=== PATIENT | male | born 1955 | race American Indian/Alaskan Native ===

== ENCOUNTER 2018-03-06 21:32 | Emergency (ER) | payer MEDICARE ==
[2018-03-06 21:46] VITALS: BP 129/82; PULSE 83; RESP 20; TEMP 98; O2SAT 100
--- NOTE | 2018-03-06 22:05 | C.PDOC ---
History Of Present Illness "I JUST WANT TO SLEEP SOMEWHERE" SEEN 03/04 AND 03/06 AT [facility] AND [facility]. PT HOMELESS. 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 NO ACUTE INTOX REMAINDER NEG Chief Complaint (Nursing): Lower Extremity Problem/Injury Past Medical History Vital Signs: Last Vital Signs Temp 98 F 03/06/18 21:39 Pulse 83 03/06/18 21:39 Resp 20 03/06/18 21:39 BP 129/82 03/06/18 21:39 Pulse Ox 100 03/06/18 21:39 - Medical History PMH: HTN, Hypercholesterolemia Family History: States: Unknown Family Hx - Social History Hx Alcohol Use: No Hx Substance Use: No - Immunization History Hx Tetanus Toxoid Vaccination: No ED Course And Treatment O2 Sat by Pulse Oximetry: 100 Disposition Counseled Patient/Family Regarding: Diagnosis, Need For Followup - Disposition Referrals: YOUR,PMD [Other] Disposition: HOME/ ROUTINE Disposition Time: 22:04 Condition: GOOD Forms: [facility] (Panamanian), General Discharge Instructions - Clinical Impression Clinical Impression: Homeless single person, Malingering
== END 2018-03-06 22:15 | disposition home or self-care (01) ==
LOC: C.ER 21:32
DX: Z59.0 Homelessness (principal); Z76.5 Malingerer [conscious simulation]; E78.00 Pure hypercholesterolemia, unspecified; I10 Essential (primary) hypertension

== ENCOUNTER 2018-03-08 15:47 | Inpatient (IN) | payer MEDICARE ==
[2018-03-08] MEDS ORDERED: Sodium Chloride 0.9% 1,000 ML IV STA (16:35)
--- NOTE | 2018-03-08 16:35 | C.PDOC ---
History Of Present Illness 62 years old male is homeless and presents to ED for complaints of right leg pain that began over 12 years ago. Patient states his leg pain worsened because he is homeless and walks around a lot. Patient also reports complaints of feeling lightheaded mainly when he walks in the sun. Denies acute trauma, fever , chills, chest pain, shortness of breath, nausea, or vomiting. Time Seen by Provider: 03/08/18 16:28 Chief Complaint (Nursing): Dizziness/Lightheaded History Per: Patient History/Exam Limitations: no limitations Onset/Duration Of Symptoms: Days Current Symptoms Are (Timing): Still Present Associated Symptoms Preceding Syncopal Episode: No Predromal Symptoms (Sudden Onset) Seizure Or Post-ictal Symptoms: None Fall Associated With With Symptoms: No Recent travel outside of the [place]: No - Symptoms Of CVA Recent Aspirin Use: Unknown Current Coumadin Use?: Unknown Recent Head Trauma: No Past Medical History Reviewed: Historical Data, Nursing Documentation, Vital Signs Vital Signs: Last Vital Signs Temp 97.6 F 03/08/18 16:05 Pulse 88 03/08/18 16:26 Resp 18 03/08/18 16:26 BP 92/60 L 03/08/18 16:26 Pulse Ox 96 03/08/18 16:57 - Medical History PMH: HTN, Hypercholesterolemia Surgical History: No Surg Hx Family History: States: Unknown Family Hx - Social History Hx Alcohol Use: No Hx Substance Use: No - Immunization History Hx Tetanus Toxoid Vaccination: No Review Of Systems Except As Marked, All Systems Reviewed And Found Negative. Constitutional: Negative for: Fever Cardiovascular: Negative for: Chest Pain Physical Exam - Physical Exam Additional Physical Exam Comments: Constitutional: No acute distress. Eating two bins of hospital food. Head: Normocephalic. Atraumatic. Eyes: PERRL. ENT: Moist mucous membranes. Neck: Supple. Cardiovascular: Regular rate. Radial pulse 2+ bilaterally. Chest: No tenderness. Respiratory: Clear to auscultation bilaterally. GI: Soft. Nontender. Nondistended. Back: No CVA tenderness. Musculoskeletal: No tenderness or swelling of extremities. No asymmetrical edema. Skin: No rash. Neurologic: Alert, no focal deficit. ED Course And Treatment - Laboratory Results Result Diagrams: 03/08/18 17:30 03/08/18 17:30 O2 Sat by Pulse Oximetry: 96 (RA) Pulse Ox Interpretation: Normal Medical Decision Making Medical Decision Making: Administered IV fluids. Ordered blood work. Patient with persistently low blood pressure with renal insufficieny, no old labs for comparison. Dr. Sosa accepts patient to his service. Disposition - Disposition Disposition: HOSPITALIZED Disposition Time: 18:20 Condition: FAIR Forms: [facility] (Persian) - Clinical Impression Clinical Impression: Acute renal insufficiency - Scribe Statement The provider has reviewed the documentation as recorded by the Scribe Dl Dolan All medical record entries made by the Scribe were at my direction and personally dictated by me. I have reviewed the chart and agree that the record accurately reflects my personal performance of the history, physical exam, medical decision making, and the department course for this patient. I have also personally directed, reviewed, and agree with the discharge instructions and disposition.
[2018-03-08] MEDS ORDERED: Sodium Chloride 0.9% 1,000 ML ONE ×2 (17:31→21:34)
[2018-03-08 17:34] LABS: BASO % 0.4 % (0.0-2.0); EOS # 0.1 K/uL (0.0-0.7); EOS % 1.4 % (0.0-4.0); HEMOGLOBIN 11.9 g/dL (12.0-18.0); LYMPH # 1.5 K/uL (1.0-4.3); LYMPH % 27.3 % (20.0-40.0); MEAN CELL VOLUME 84.7 fL (80.0-94.0); MEAN CORPUSCULAR HEMOGLOBIN 28.3 pg (27.0-31.0); MEAN CORPUSCULAR HGB CONC 33.4 g/dL (33.0-37.0); MEAN PLATELET VOLUME 7.1 fL (7.2-11.7); MONO # 0.4 K/uL (0.0-0.8); MONO % 7.7 % (0.0-10.0); NEUT # 3.4 K/uL (1.8-7.0); NEUT % 63.2 % (50.0-75.0); RBC 4.2 Mil/uL (4.40-5.90); RED CELL DISTRIBUTION WIDTH 15.5 % (11.5-14.5); WHITE BLOOD COUNT 5.4 K/uL (4.8-10.8)
[2018-03-08 17:46] LABS: ALB/GLOB RATIO 1.3 (1.0-2.1); ALBUMIN 4.1 g/dL (3.5-5.0); CALCIUM 9.7 mg/dl (8.6-10.4)
--- NOTE | 2018-03-08 21:17 | CP.PCM.HP ---
History of Present Illness - History of Present Illness History of Present Illness: 62 year old male homeless patient with PMH of HTN, Hypercholesterolemia presents to the ED with complains of right leg pain that began 12 years back. Patient feels that his leg pain worsened after he became homeless as he has to walk alot daily. Patient also complains of feeling light headedness when he walks in the sun. Patient denies any recent trauma, fever,chills, CP, SOB, nausea or vomiting. Present on Admission - Present on Admission Any Indicators Present on Admission: No Past Patient History - Past Social History Smoking Status: Never Smoked - CARDIAC Hx Hypercholesterolemia: Yes Hx Hypertension: Yes - NEUROLOGICAL Hx Vertigo: Yes - GENITOURINARY/GYNECOLOGICAL Hx Prostate Problems: Yes - PSYCHIATRIC Hx Substance Use: No - SURGICAL HISTORY Hx Surgeries: No - ANESTHESIA Hx Anesthesia: No Meds Allergies/Adverse Reactions: Allergies Allergy/AdvReac Type Severity Reaction Status Date / Time No Known Allergies Allergy Verified 03/08/18 16:07 Results - Vital Signs Recent Vital Signs: Last Vital Signs Temp 97.6 F 03/08/18 16:05 Pulse 80 03/08/18 19:24 Resp 20 03/08/18 19:24 BP 108/63 03/08/18 19:24 Pulse Ox 99 03/08/18 19:24 - Labs Result Diagrams: 03/10/18 14:15 03/10/18 14:15 Labs: Laboratory Results - last 24 hr 03/08/18 03/08/18 17:30 17:30 WBC 5.4 RBC 4.20 L Hgb 11.9 L Hct 35.6 MCV 84.7 MCH 28.3 MCHC 33.4 RDW 15.5 H Plt Count 205 MPV 7.1 L Neut % (Auto) 63.2 Lymph % (Auto) 27.3 [place] % (Auto) 7.7 Eos % (Auto) 1.4 Baso % (Auto) 0.4 Neut # (Auto) 3.4 Lymph # (Auto) 1.5 [place] # (Auto) 0.4 Eos # (Auto) 0.1 Baso # (Auto) 0.0 Sodium 139 Potassium 3.2 L Chloride 101 Carbon Dioxide 23 Anion Gap 17 BUN 34 H Creatinine 2.5 H Est GFR ( Amer) 32 Est GFR (Non-Af Amer) 26 Random Glucose 125 H Calcium 9.7 Total Bilirubin 0.8 AST 38 ALT 57 Alkaline Phosphatase 81 Total Protein 7.4 Albumin 4.1 Globulin 3.3 Albumin/Globulin Ratio 1.3 Assessment & Plan - Assessment and Plan (Free Text) Plan: Meclizine 25 p.o. every 8 aspirin Flomax KCl Renal workup Renal Doppler IV fluid CBC CMP tomorrow morning Lisinopril As ordered
[2018-03-08] MEDS ORDERED: Enoxaparin 40 mg Syringe SC ONE (21:18)
[2018-03-08 21:48] LABS: BASO % 0.4 % (0.0-2.0); EOS # 0.1 K/uL (0.0-0.7); EOS % 2.6 % (0.0-4.0); HEMOGLOBIN 10.9 g/dL (12.0-18.0); LYMPH % 43.1 % (20.0-40.0); MEAN CELL VOLUME 84.1 fL (80.0-94.0); MEAN CORPUSCULAR HEMOGLOBIN 28.8 pg (27.0-31.0); MEAN CORPUSCULAR HGB CONC 34.2 g/dL (33.0-37.0); MONO # 0.5 K/uL (0.0-0.8); MONO % 11.1 % (0.0-10.0); NEUT % 42.8 % (50.0-75.0); RBC 3.79 Mil/uL (4.40-5.90); RED CELL DISTRIBUTION WIDTH 15.8 % (11.5-14.5); WHITE BLOOD COUNT 4.7 K/uL (4.8-10.8)
[2018-03-08] MEDS: Sodium Chloride 0.9% 1,000 ML IV SCH (21:48)
[2018-03-08 21:57] LABS: ALB/GLOB RATIO 1.2 (1.0-2.1); ALBUMIN 3.6 g/dL (3.5-5.0); CALCIUM 8.9 mg/dl (8.6-10.4)
[2018-03-08] MEDS ORDERED: Potassium Chloride 10 mEq ER Tab PO SCH (22:00)
[2018-03-08] MEDS: Potassium Chloride 10 mEq ER Tab PO SCH (23:29)
[2018-03-09] MEDS: Potassium Chloride 10 mEq ER Tab PO SCH (04:09)
[2018-03-09] MEDS: Sodium Chloride 0.9% 1,000 ML IV SCH ×2 (09:05→21:51)
[2018-03-09] MEDS: Pantoprazole 40 mg EC Tab PO SCH (09:06)
[2018-03-09 12:09] LABS: BASO % 0.5 % (0.0-2.0); EOS # 0.2 K/uL (0.0-0.7); EOS % 4.3 % (0.0-4.0); LYMPH # 1.8 K/uL (1.0-4.3); LYMPH % 49.3 % (20.0-40.0); MEAN CELL VOLUME 84.8 fL (80.0-94.0); MEAN CORPUSCULAR HEMOGLOBIN 28.9 pg (27.0-31.0); MEAN CORPUSCULAR HGB CONC 34.1 g/dL (33.0-37.0); MEAN PLATELET VOLUME 7.4 fL (7.2-11.7); MONO # 0.4 K/uL (0.0-0.8); MONO % 12.1 % (0.0-10.0); NEUT # 1.2 K/uL (1.8-7.0); NEUT % 33.8 % (50.0-75.0); RBC 3.81 Mil/uL (4.40-5.90); RED CELL DISTRIBUTION WIDTH 15.7 % (11.5-14.5); WHITE BLOOD COUNT 3.6 K/uL (4.8-10.8)
[2018-03-09 12:38] LABS: ALB/GLOB RATIO 1.2 (1.0-2.1); ALBUMIN 3.5 g/dL (3.5-5.0); CALCIUM 8.8 mg/dl (8.6-10.4)
[2018-03-09] MEDS ORDERED: Potassium Chloride 20 mEq ER Tab PO SCH ×2 (13:45→14:00)
--- NOTE | 2018-03-09 14:14 | CP.PCM.PN ---
Subjective - Date & Time of Evaluation Date of Evaluation: 03/09/18 Time of Evaluation: 12:30 - Subjective Subjective: clinically same Objective - Vital Signs/Intake and Output Vital Signs (last 24 hours): Temp Pulse Resp BP Pulse Ox 97.9 F 81 20 134/82 99 03/09/18 09:08 03/09/18 09:08 03/09/18 09:08 03/09/18 09:08 03/09/18 09:08 Intake and Output: 03/09/18 03/09/18 06:59 18:59 Intake Total 940 Output Total 600 600 Balance 340 -600 - Medications Medications: Current Medications Aspirin (Aspirin Chewable) 81 mg PO DAILY [facility] Last Admin: 03/09/18 09:06 Dose: 81 mg Hydrochlorothiazide (Hydrodiuril) 25 mg PO DAILY [facility] Last Admin: 03/09/18 09:06 Dose: 25 mg Sodium Chloride (Sodium Chloride 0.9%) 1,000 mls @ 100 mls/hr IV .Q10H [facility] Last Admin: 03/09/18 09:05 Dose: 100 mls/hr Lisinopril (Zestril) 20 mg PO DAILY [facility] Last Admin: 03/09/18 09:06 Dose: 20 mg Meclizine HCl (Antivert) 25 mg PO Q8 [facility] Last Admin: 03/09/18 13:59 Dose: Not Given Pantoprazole Sodium (Protonix Ec Tab) 40 mg PO DAILY [facility] Last Admin: 03/09/18 09:06 Dose: 40 mg Pneumococcal Polyvalent Vaccine (Pneumovax 23 Vaccine) 0.5 ml IM .ONCE ONE Stop: 03/11/18 10:01 Rosuvastatin Calcium (Crestor) 5 mg PO HS [facility] Last Admin: 03/08/18 21:57 Dose: 5 mg Tamsulosin HCl (Flomax) 0.4 mg PO DAILY [facility] Last Admin: 03/09/18 09:06 Dose: 0.4 mg - Labs Labs: 03/09/18 11:51 03/09/18 11:51 - Constitutional Appears: Well - Head Exam Head Exam: ATRAUMATIC, NORMAL INSPECTION, NORMOCEPHALIC - Eye Exam Eye Exam: EOMI, Normal appearance, PERRL Pupil Exam: NORMAL ACCOMODATION, PERRL - ENT Exam ENT Exam: Mucous Membranes Moist, Normal Exam - Neck Exam Neck Exam: Full ROM, Normal Inspection. absent: Lymphadenopathy - Respiratory Exam Respiratory Exam: Decreased Breath Sounds - Cardiovascular Exam Cardiovascular Exam: REGULAR RHYTHM, +S1, +S2 - GI/Abdominal Exam GI & Abdominal Exam: Soft, Diminished Bowel Sounds - Rectal Exam Rectal Exam: Deferred Assessment and Plan - Assessment and Plan (Free Text) Plan: patient claims has no pain in the legs we will do Dopplers ordered 24 hour protein ordered Renal sonogram We will speak with the family Long-term plan to be discussed with the patient's Continue aspirin Continue as ordered
[2018-03-10] MEDS: Sodium Chloride 0.9% 1,000 ML IV SCH ×3 (03:30→22:38)
[2018-03-10] MEDS: Cilostazol 100 mg Tab UD PO SCH ×2 (09:09→17:15)
[2018-03-10] MEDS: Pantoprazole 40 mg EC Tab PO SCH (09:10)
[2018-03-10] MEDS ORDERED: Potassium Chloride 20 mEq ER Tab PO ONE ×2 (10:00→16:00)
[2018-03-10 14:25] LABS: BASO % 0.4 % (0.0-2.0); EOS # 0.2 K/uL (0.0-0.7); EOS % 4.6 % (0.0-4.0); HEMOGLOBIN 11.2 g/dL (12.0-18.0); LYMPH # 1.9 K/uL (1.0-4.3); LYMPH % 51.5 % (20.0-40.0); MEAN CELL VOLUME 86.2 fL (80.0-94.0); MEAN CORPUSCULAR HGB CONC 33.6 g/dL (33.0-37.0); MEAN PLATELET VOLUME 7.6 fL (7.2-11.7); MONO # 0.4 K/uL (0.0-0.8); MONO % 11.7 % (0.0-10.0); NEUT # 1.2 K/uL (1.8-7.0); NEUT % 31.8 % (50.0-75.0); NRBC % 0.1 % (0.0-2.0); RBC 3.86 Mil/uL (4.40-5.90); RED CELL DISTRIBUTION WIDTH 15.7 % (11.5-14.5); WHITE BLOOD COUNT 3.7 K/uL (4.8-10.8)
[2018-03-10 14:36] LABS: IRON 49 ug/dL (49-181)
--- NOTE | 2018-03-10 14:40 | US ---
Date of service: 03/10/2018 PROCEDURE: Ultrasound of the Kidneys HISTORY: RUSSELL. please assess for PVR as well COMPARISON: None available. TECHNIQUE: Sonogram of the kidneys. FINDINGS: RIGHT KIDNEY: Measures: 4.5 x 5.6 x 10.9 cm. Normal in size, contour and echogenicity. No stone, solid mass lesion or hydronephrosis visualized. LEFT KIDNEY: Measures: 5.9 x 6.1 x 11 cm. Normal in size, contour and echogenicity. No stone, solid mass lesion or hydronephrosis visualized. OTHER FINDINGS: Urinary bladder assessment: Prevoid volume: Cannot be assessed, the patient voided prior to the examination. Postvoid residual: 25.5 ml Intrinsic, mural, perivesical abnormalities: None Ureteral jets: Not visible. IMPRESSION: Unremarkable upper tracts. Nondiagnostic assessment of the urinary bladder.
[2018-03-10 14:43] LABS: ALB/GLOB RATIO 1.1 (1.0-2.1); ALBUMIN 3.6 g/dL (3.5-5.0); ALT/SGPT 55 U/L (21-72); AST/SGOT 30 U/L (17-59); BLOOD UREA NITROGEN 19 mg/dL (9-20); CALCIUM 9.1 mg/dl (8.6-10.4); GFR NON-AFRICAN AMERICAN 51
[2018-03-10 14:48] LABS: % IRON SATURATION 18 (20-55); TOTAL IRON BINDING CAPACITY 265 ug/dL (250-450)
[2018-03-10 15:10] LABS: HEPATITIS B SURFACE AG Negative (NEGATIVE)
[2018-03-10 15:15] LABS: HEPATITIS B CORE AB NEGATIVE (NEGATIVE)
[2018-03-10 15:18] LABS: HIV 1&2 ANTIBODY NEGATIVE (NEGATIVE)
--- NOTE | 2018-03-10 15:26 | CP.PCM.PN ---
Subjective - Date & Time of Evaluation Date of Evaluation: 03/10/18 Time of Evaluation: 12:00 - Subjective Subjective: clinically same Objective - Vital Signs/Intake and Output Vital Signs (last 24 hours): Temp Pulse Resp BP Pulse Ox 98.4 F 80 20 121/77 99 03/10/18 08:14 03/10/18 09:13 03/10/18 08:14 03/10/18 09:13 03/10/18 08:14 Intake and Output: 03/10/18 03/10/18 06:59 18:59 Intake Total 1040 Output Total 400 400 Balance 640 -400 - Medications Medications: Current Medications Aspirin (Aspirin Chewable) 81 mg PO DAILY [facility] Last Admin: 03/10/18 09:10 Dose: 81 mg Cilostazol (Pletal) 100 mg PO BID [facility] Last Admin: 03/10/18 09:09 Dose: 100 mg Heparin Sodium (Porcine) (Heparin) 5,000 units SC Q12 [facility] Last Admin: 03/10/18 09:11 Dose: 5,000 units Sodium Chloride (Sodium Chloride 0.9%) 1,000 mls @ 100 mls/hr IV .Q10H [facility] Last Admin: 03/10/18 14:55 Dose: Not Given Lisinopril (Zestril) 20 mg PO DAILY [facility] Last Admin: 03/10/18 09:13 Dose: 20 mg Meclizine HCl (Antivert) 25 mg PO Q8 [facility] Last Admin: 03/10/18 14:55 Dose: Not Given Pantoprazole Sodium (Protonix Ec Tab) 40 mg PO DAILY [facility] Last Admin: 03/10/18 09:10 Dose: 40 mg Pneumococcal Polyvalent Vaccine (Pneumovax 23 Vaccine) 0.5 ml IM .ONCE ONE Stop: 03/11/18 10:01 Potassium Chloride (K-Dur 20 Meq Er Tab) 20 meq PO ONCE ONE Stop: 03/10/18 16:01 Rosuvastatin Calcium (Crestor) 5 mg PO HS [facility] Last Admin: 03/09/18 21:50 Dose: 5 mg Tamsulosin HCl (Flomax) 0.4 mg PO DAILY [facility] Last Admin: 03/10/18 09:10 Dose: 0.4 mg - Labs Labs: 03/10/18 14:15 03/10/18 14:15 - Constitutional Appears: Well - Head Exam Head Exam: ATRAUMATIC, NORMAL INSPECTION, NORMOCEPHALIC - Eye Exam Eye Exam: EOMI, Normal appearance, PERRL Pupil Exam: NORMAL ACCOMODATION, PERRL - ENT Exam ENT Exam: Mucous Membranes Moist, Normal Exam - Neck Exam Neck Exam: Full ROM, Normal Inspection. absent: Lymphadenopathy - Respiratory Exam Respiratory Exam: Decreased Breath Sounds - Cardiovascular Exam Cardiovascular Exam: REGULAR RHYTHM, +S1, +S2 - GI/Abdominal Exam GI & Abdominal Exam: Soft, Diminished Bowel Sounds - Rectal Exam Rectal Exam: Deferred
[2018-03-10 15:28] LABS: HEPATITIS C ANTIBODY NEGATIVE (NEGATIVE)
--- NOTE | 2018-03-10 15:28 | CP.PCM.CON ---
History of Present Illness - History of Present Illness History of Present Illness: Nephrology Consultation Note: Assessment: Stable Acute Kidney Injury (N17.9) likely due to pre-renal state, low BP/hypotension Anemia, HTN Hypokalemia Plan No acute need for renal replacement therapy at this time. Hypertension control with meds as ordered. Maintain hemodynamics stable. Avoid hypotension. Patient on acei. hold diuretics for now Monitor Input/Output, daily weights and renal function with basic metabolic panel continue with IVF Check urine analysis, spot protein/creatinine, albumin/creatinine ratio, renal and bladder sonogram Check HIV/Hep B and Hep C serology Anemia work up with TSAT/Ferritin/Vitamin B12/folate, serum protein electrophoresis with immunofixation Check for 25-OH vitamin D, iPTH, phosphorus level. Dose meds/antibiotics for reduced GFR. Avoid fleets enema/magnesium based laxatives. Avoid nephrotoxins/NSAIDs/ iodinated contrast (unless needed emergently) Glycemic control Further work up/management as per primary team Thanks for allowing me to participate in care of your patient. Will follow patient with you. Please call if any Qs. had d/w team Dr Satnam Patton Office: [phone] Chief Complaint; none Reason for consult: Acute Kidney Injury HPI: Pt is a 62 M with hx of hypertension (years) presented with complaints of dizziness and low BP, also with leg pain for last few days. renal consult for RUSSELL. pt not very cooperative and not providing much hx. Denies OTC/herbal meds or NSAIDs No recent iodinated contrast exposure. Noted obvious episodes of low BP. ROS: Cardiovascular: No chest pain. Pulmonary: No shortness of breath Gastrointestinal: denies abdominal pain No nausea. No vomiting. Genitourinary: No pain while urinating. Denies blood in urine. All other negative except as mentioned in HPI however very limited as pt not cooperative Physical Examination: General Appearance: Comfortable, in no acute respiratory distress, limited exam as pt unco-operative . Vitals reviewed and noted as below Head; Atraumatic, normocephalic ENT: no ulcers no thrush. Tongue is midline. Oropharynx: no rash or ulcers. EYES: Pupils are equal Sclera is anicteric. Neck; supple no thyromegaly Lungs: Normal respiratory rate/effort. Breath sounds bilateral equal and clear Heart: Normal rate. s1s2 normal. No rub or gallop. Extremities: no edema. No varicose veins Neurological: Patient is alert, awake and oriented to person, place and time. Strength bilateral appropriate and equal Skin: Warm and dry. Normal turgor. No rash. Palpitation: Normal elasticity for age Abdomen: Abdomen is soft. Bowel sounds +. There is no abdominal tenderness, no guarding/rigidity no organomegaly Psych: lack insight MSK: no joint tenderness or swelling. Digits and nails normal, no deformity : kidney or bladder not palpable Labs/imaging reviewed. Past medical history, past surgical history, family history, social history, allergy reviewed and noted as below Family hx: no hx of CKD. Rest non-contributory Past Patient History - Past Medical History & Family History Past Medical History?: Yes - Past Social History Smoking Status: Never Smoked - CARDIAC Hx Hypercholesterolemia: Yes Hx Hypertension: Yes - NEUROLOGICAL Hx Dementia: Yes Hx Vertigo: Yes - MUSCULOSKELETAL/RHEUMATOLOGICAL Hx Musculoskeletal Disorders: Yes Hx Arthritis: Yes - GENITOURINARY/GYNECOLOGICAL Hx Prostate Problems: Yes - PSYCHIATRIC Hx Substance Use: No - SURGICAL HISTORY Hx Surgeries: No - ANESTHESIA Hx Anesthesia: No Meds Allergies/Adverse Reactions: Allergies Allergy/AdvReac Type Severity Reaction Status Date / Time No Known Allergies Allergy Verified 03/08/18 16:07 - Medications Medications: Current Medications Aspirin (Aspirin Chewable) 81 mg PO DAILY [facility] Last Admin: 03/10/18 09:10 Dose: 81 mg Cilostazol (Pletal) 100 mg PO BID [facility] Last Admin: 03/10/18 09:09 Dose: 100 mg Heparin Sodium (Porcine) (Heparin) 5,000 units SC Q12 [facility] Last Admin: 03/10/18 09:11 Dose: 5,000 units Sodium Chloride (Sodium Chloride 0.9%) 1,000 mls @ 100 mls/hr IV .Q10H [facility] Last Admin: 03/10/18 14:55 Dose: Not Given Lisinopril (Zestril) 20 mg PO DAILY [facility] Last Admin: 03/10/18 09:13 Dose: 20 mg Meclizine HCl (Antivert) 25 mg PO Q8 [facility] Last Admin: 03/10/18 14:55 Dose: Not Given Pantoprazole Sodium (Protonix Ec Tab) 40 mg PO DAILY [facility] Last Admin: 03/10/18 09:10 Dose: 40 mg Pneumococcal Polyvalent Vaccine (Pneumovax 23 Vaccine) 0.5 ml IM .ONCE ONE Stop: 03/11/18 10:01 Potassium Chloride (K-Dur 20 Meq Er Tab) 20 meq PO ONCE ONE Stop: 03/10/18 16:01 Rosuvastatin Calcium (Crestor) 5 mg PO HS [facility] Last Admin: 03/09/18 21:50 Dose: 5 mg Tamsulosin HCl (Flomax) 0.4 mg PO DAILY [facility] Last Admin: 03/10/18 09:10 Dose: 0.4 mg Results - Vital Signs Recent Vital Signs: Last Vital Signs Temp 98.4 F 03/10/18 08:14 Pulse 80 03/10/18 09:13 Resp 20 03/10/18 08:14 BP 121/77 03/10/18 09:13 Pulse Ox 99 03/10/18 08:14 - Labs Result Diagrams: 03/10/18 14:15 03/10/18 14:15 Labs: Laboratory Results - last 24 hr 03/10/18 03/10/18 03/10/18 14:15 14:15 14:15 WBC 3.7 L RBC 3.86 L Hgb 11.2 L Hct 33.3 L MCV 86.2 MCH 29.0 MCHC 33.6 RDW 15.7 H Plt Count 196 MPV 7.6 Neut % (Auto) 31.8 L Lymph % (Auto) 51.5 H [place] % (Auto) 11.7 H Eos % (Auto) 4.6 H Baso % (Auto) 0.4 Neut # (Auto) 1.2 L Lymph # (Auto) 1.9 [place] # (Auto) 0.4 Eos # (Auto) 0.2 Baso # (Auto) 0.0 Sodium 141 Potassium 3.5 L Chloride 105 Carbon Dioxide 26 Anion Gap 14 BUN 19 Creatinine 1.4 Est GFR ( Amer) > 60 Est GFR (Non-Af Amer) 51 Random Glucose 89 Calcium 9.1 Iron 49 TIBC 265 % Saturation 18 L Ferritin Total Bilirubin 0.4 AST 30 ALT 55 Alkaline Phosphatase 87 Total Protein 6.9 Albumin 3.6 Globulin 3.3 Albumin/Globulin Ratio 1.1 Hep Bs Antigen Hep B Core IgM Ab HIV 1&2 Antibody Screen Negative 03/10/18 14:15 WBC RBC Hgb Hct MCV MCH MCHC RDW Plt Count MPV Neut % (Auto) Lymph % (Auto) [place] % (Auto) Eos % (Auto) Baso % (Auto) Neut # (Auto) Lymph # (Auto) [place] # (Auto) Eos # (Auto) Baso # (Auto) Sodium Potassium Chloride Carbon Dioxide Anion Gap BUN Creatinine Est GFR ( Amer) Est GFR (Non-Af Amer) Random Glucose Calcium Iron TIBC % Saturation Ferritin 255.0 Total Bilirubin AST ALT Alkaline Phosphatase Total Protein Albumin Globulin Albumin/Globulin Ratio Hep Bs Antigen Negative Hep B Core IgM Ab Negative HIV 1&2 Antibody Screen
[2018-03-10 15:44] LABS: FOLATE 5.7 ng/mL
[2018-03-11] MEDS: Potassium Chloride 10 mEq ER Tab PO SCH (08:55)
[2018-03-11] MEDS: Multivitamin Vitamin B Complex (Nephro-Vite) Tab PO SCH (08:55)
[2018-03-11] MEDS: Cilostazol 100 mg Tab UD PO SCH ×2 (09:17→17:46)
[2018-03-11] MEDS: Pantoprazole 40 mg EC Tab PO SCH (09:18)
[2018-03-11] MEDS: Sodium Chloride 0.9% 1,000 ML IV SCH (09:30)
[2018-03-11] MEDS ORDERED: Pneumococcal 23-Valent Vaccine IM ONE (10:00)
--- NOTE | 2018-03-11 11:35 | CP.PCM.PN ---
Subjective - Date & Time of Evaluation Date of Evaluation: 03/11/18 Time of Evaluation: 11:34 - Subjective Subjective: Nephrology Consultation Note: Assessment: Stable Acute Kidney Injury (N17.9) likely due to pre-renal state, low BP/hypotension: IMPROVING Anemia, HTN Hypokalemia Plan No acute need for renal replacement therapy at this time. Hypertension control with meds as ordered. Maintain hemodynamics stable. Avoid hypotension. Patient on acei--lowered to 5 mg/day. hold diuretics for now Monitor Input/Output, daily weights and renal function with basic metabolic panel continue with IVF added iron and MVI supplements Check urine analysis, spot protein/creatinine, albumin/creatinine ratio, renal and bladder sonogram Check HIV/Hep B and Hep C serology Anemia work up with TSAT/Ferritin/Vitamin B12/folate, serum protein electrophoresis with immunofixation Check for 25-OH vitamin D, iPTH, phosphorus level. Dose meds/antibiotics for reduced GFR. Avoid fleets enema/magnesium based laxatives. Avoid nephrotoxins/NSAIDs/ iodinated contrast (unless needed emergently) Glycemic control Further work up/management as per primary team pt stable for d/c from renal perspective when planned, f/up renal clinic 1 week Thanks for allowing me to participate in care of your patient. Will follow patient with you. Please call if any Qs. had d/w team Dr Satnam Patton Office: [phone] Chief Complaint; none Reason for consult: Acute Kidney Injury HPI: Pt is a 62 M with hx of hypertension (years) presented with complaints of dizziness and low BP, also with leg pain for last few days. renal consult for RUSSELL. pt not very cooperative and not providing much hx. Denies OTC/herbal meds or NSAIDs No recent iodinated contrast exposure. Noted obvious episodes of low BP. ROS: Cardiovascular: No chest pain. Pulmonary: No shortness of breath Gastrointestinal: denies abdominal pain No nausea. No vomiting. Genitourinary: No pain while urinating. Denies blood in urine. All other negative except as mentioned in HPI however very limited as pt not cooperative Physical Examination: General Appearance: Comfortable, in no acute respiratory distress, limited exam as pt unco-operative . Vitals reviewed and noted as below Head; Atraumatic, normocephalic ENT: no ulcers no thrush. Tongue is midline. Oropharynx: no rash or ulcers. EYES: Pupils are equal Sclera is anicteric. Neck; supple no thyromegaly Lungs: Normal respiratory rate/effort. Breath sounds bilateral equal and clear Heart: Normal rate. s1s2 normal. No rub or gallop. Extremities: no edema. No varicose veins Neurological: Patient is alert, awake and oriented to person, place and time. Strength bilateral appropriate and equal Skin: Warm and dry. Normal turgor. No rash. Palpitation: Normal elasticity for age Abdomen: Abdomen is soft. Bowel sounds +. There is no abdominal tenderness, no guarding/rigidity no organomegaly Psych: lack insight MSK: no joint tenderness or swelling. Digits and nails normal, no deformity : kidney or bladder not palpable Labs/imaging reviewed. Past medical history, past surgical history, family history, social history, allergy reviewed and noted as below Family hx: no hx of CKD. Rest non-contributory Objective - Vital Signs/Intake and Output Vital Signs (last 24 hours): Temp Pulse Resp BP Pulse Ox 98.5 F 80 20 106/66 99 03/11/18 08:00 03/11/18 08:00 03/11/18 08:00 03/11/18 08:00 03/11/18 08:00 Intake and Output: 03/11/18 03/11/18 06:59 18:59 Output Total 200 Balance -200 - Medications Medications: Current Medications Aspirin (Aspirin Chewable) 81 mg PO DAILY [facility] Last Admin: 03/11/18 09:17 Dose: 81 mg Cilostazol (Pletal) 100 mg PO BID [facility] Last Admin: 03/11/18 09:17 Dose: 100 mg Ferrous Gluconate (Fergon) 324 mg PO TID [facility] Last Admin: 03/11/18 09:17 Dose: 324 mg Heparin Sodium (Porcine) (Heparin) 5,000 units SC Q12 [facility] Last Admin: 03/11/18 09:18 Dose: 5,000 units Sodium Chloride (Sodium Chloride 0.9%) 1,000 mls @ 100 mls/hr IV .Q10H [facility] Last Admin: 03/10/18 22:38 Dose: Not Given Lisinopril (Zestril) 5 mg PO DAILY [facility] Meclizine HCl (Antivert) 25 mg PO Q8 [facility] Last Admin: 03/11/18 05:08 Dose: 25 mg Pantoprazole Sodium (Protonix Ec Tab) 40 mg PO DAILY [facility] Last Admin: 03/11/18 09:18 Dose: 40 mg Potassium Chloride (Klor-Con 10) 10 meq PO BRK [facility] Last Admin: 03/11/18 08:55 Dose: 10 meq Rosuvastatin Calcium (Crestor) 5 mg PO HS [facility] Last Admin: 03/10/18 22:37 Dose: Not Given Tamsulosin HCl (Flomax) 0.4 mg PO DAILY [facility] Last Admin: 03/11/18 09:18 Dose: 0.4 mg Vitamin B Complex/Vit C/Folic Acid (Nephro-Renay) 1 tab PO 0800 [facility] Last Admin: 03/11/18 08:55 Dose: 1 tab - Labs Labs: 03/10/18 14:15 03/10/18 14:15
--- NOTE | 2018-03-11 12:53 | PQF ---
PROVIDER RESPONSE TEXT: PRERENAL AZOTEMIA REVIEWER QUERY TEXT: Kidney Failure, Acute - Associated Conditions Acute Kidney Failure is documented in the Medical Record. Please specify the associated condition (i ncluding probable or suspected) Such as: -- Acute Tubular Necrosis -- Cortical Necrosis -- Papillary or Medullary Necrosis -- Traumatic Anuria -- None are likely contributors -- Other, please specify The patient's Clinical Indicators include: ?62 years old male is homeless, complaints of feeling lightheaded mainly when he walks in the sun?. BP 81/53 - 92/60 - 108/63 (mmHg). BUN: 34/33/26 - Crea: 2.5/2.2/1.8 GFR: 32/26-37/30. U/S RENAL/URINARY BLADDER: Unremarkable upper tracts. Nondiagnostic assessment of the urinary bladder. Please consider verify if AKF is due to hypotension and document it specifying it, if agree Query created by: Lito Neri on 03/11/2018 12:01 PM Electronically signed by: Kaur CROSS 03/11/2018 12:49 PM
[2018-03-11 14:13] LABS: CALCIUM 9.3 mg/dl (8.6-10.4)
[2018-03-11 14:34] LABS: URINE 24 HOUR TOTAL PROTEIN 128.3 mg/24hr (42-225)
[2018-03-11] MEDS ORDERED: Potassium Chloride 20 mEq ER Tab PO ONE (16:00)
--- NOTE | 2018-03-11 17:03 | CP.PCM.PN ---
Subjective - Date & Time of Evaluation Date of Evaluation: 03/11/18 Time of Evaluation: 11:15 - Subjective Subjective: clinically same Objective - Vital Signs/Intake and Output Vital Signs (last 24 hours): Temp Pulse Resp BP Pulse Ox 98.4 F 87 20 108/71 99 03/11/18 15:00 03/11/18 15:00 03/11/18 15:00 03/11/18 15:00 03/11/18 15:00 Intake and Output: 03/11/18 03/11/18 06:59 18:59 Intake Total 480 Output Total 200 450 Balance -200 30 - Medications Medications: Current Medications Aspirin (Aspirin Chewable) 81 mg PO DAILY [facility] Last Admin: 03/11/18 09:17 Dose: 81 mg Cilostazol (Pletal) 100 mg PO BID [facility] Last Admin: 03/11/18 09:17 Dose: 100 mg Ferrous Gluconate (Fergon) 324 mg PO TID [facility] Last Admin: 03/11/18 14:10 Dose: 324 mg Heparin Sodium (Porcine) (Heparin) 5,000 units SC Q12 [facility] Last Admin: 03/11/18 09:18 Dose: 5,000 units Sodium Chloride (Sodium Chloride 0.9%) 1,000 mls @ 100 mls/hr IV .Q10H [facility] Last Admin: 03/10/18 22:38 Dose: Not Given Lisinopril (Zestril) 5 mg PO DAILY [facility] Meclizine HCl (Antivert) 25 mg PO Q8 [facility] Last Admin: 03/11/18 13:17 Dose: 25 mg Pantoprazole Sodium (Protonix Ec Tab) 40 mg PO DAILY [facility] Last Admin: 03/11/18 09:18 Dose: 40 mg Potassium Chloride (Klor-Con 10) 10 meq PO BRK [facility] Last Admin: 03/11/18 08:55 Dose: 10 meq Rosuvastatin Calcium (Crestor) 5 mg PO HS [facility] Last Admin: 03/10/18 22:37 Dose: Not Given Tamsulosin HCl (Flomax) 0.4 mg PO DAILY [facility] Last Admin: 03/11/18 09:18 Dose: 0.4 mg Vitamin B Complex/Vit C/Folic Acid (Nephro-Renay) 1 tab PO 0800 [facility] Last Admin: 03/11/18 08:55 Dose: 1 tab - Labs Labs: 03/10/18 14:15 03/11/18 13:51 - Constitutional Appears: Well - Head Exam Head Exam: ATRAUMATIC, NORMAL INSPECTION, NORMOCEPHALIC - Eye Exam Eye Exam: EOMI, Normal appearance, PERRL Pupil Exam: NORMAL ACCOMODATION, PERRL - ENT Exam ENT Exam: Mucous Membranes Moist, Normal Exam - Neck Exam Neck Exam: Full ROM, Normal Inspection. absent: Lymphadenopathy - Respiratory Exam Respiratory Exam: Decreased Breath Sounds - Cardiovascular Exam Cardiovascular Exam: REGULAR RHYTHM, +S1, +S2 - GI/Abdominal Exam GI & Abdominal Exam: Soft, Diminished Bowel Sounds - Rectal Exam Rectal Exam: Deferred
[2018-03-11 23:07] LABS: URINE BACTERIA FEW (<OCC); URINE BILIRUBIN NEGATIVE (NEGATIVE); URINE CLARITY Clear (Clear); URINE COLOR Yellow (YELLOW); URINE GLUCOSE (UA) NORMAL (Normal); URINE LEUKOCYTE ESTERASE NEG Leu/uL (Negative); URINE PROTEIN NEGATIVE (NEGATIVE); URINE UROBILINOGEN NORMAL mg/dL (0.2-1.0)
[2018-03-11 23:11] LABS: URINE BLOOD TRACE (NEGATIVE)
[2018-03-12] MEDS: Sodium Chloride 0.9% 1,000 ML IV SCH (05:01)
[2018-03-12 07:41] LABS: ALBUMIN (PEP) 3.5 g/dL (3.8-4.8); ALPHA-1-GLOBULIN (PEP) 0.3 g/dL (0.2-0.3)
[2018-03-12] MEDS: Potassium Chloride 10 mEq ER Tab PO SCH ×2 (08:44→14:58)
[2018-03-12] MEDS: Multivitamin Vitamin B Complex (Nephro-Vite) Tab PO SCH (08:44)
[2018-03-12] MEDS: Pantoprazole 40 mg EC Tab PO SCH (09:13)
[2018-03-12] MEDS: Cilostazol 100 mg Tab UD PO SCH ×2 (09:13→17:42)
[2018-03-12 14:16] LABS: CALCIUM 9.1 mg/dl (8.6-10.4)
--- NOTE | 2018-03-12 15:14 | CP.PCM.PN ---
Subjective - Date & Time of Evaluation Date of Evaluation: 03/12/18 Time of Evaluation: 09:30 - Subjective Subjective: Nephrology Consultation Note: Assessment: Stable Acute Kidney Injury (N17.9) likely due to pre-renal state, low BP/hypotension: IMPROVING Anemia, HTN Hypokalemia Plan No acute need for renal replacement therapy at this time. Hypertension control with meds as ordered. Maintain hemodynamics stable. Avoid hypotension. Patient on acei--lowered to 5 mg/day. hold diuretics for now Monitor Input/Output, daily weights and renal function with basic metabolic panel can discontinue IVF added iron and MVI supplements Check urine analysis, spot protein/creatinine, albumin/creatinine ratio, renal and bladder sonogram Check HIV/Hep B and Hep C serology Anemia work up with TSAT/Ferritin/Vitamin B12/folate, serum protein electrophoresis with immunofixation Check for 25-OH vitamin D, iPTH, phosphorus level. Dose meds/antibiotics for reduced GFR. Avoid fleets enema/magnesium based laxatives. Avoid nephrotoxins/NSAIDs/ iodinated contrast (unless needed emergently) Glycemic control Further work up/management as per primary team pt stable for d/c from renal perspective when planned, f/up renal clinic 1 week Thanks for allowing me to participate in care of your patient. Will follow patient with you. Please call if any Qs. had d/w team Dr Satnam Patton Office: [phone] Chief Complaint; none Reason for consult: Acute Kidney Injury HPI: Pt is a 62 M with hx of hypertension (years) presented with complaints of dizziness and low BP, also with leg pain for last few days. renal consult for RUSSELL. pt not very cooperative and not providing much hx. Denies OTC/herbal meds or NSAIDs No recent iodinated contrast exposure. Noted obvious episodes of low BP. ROS: Cardiovascular: No chest pain. Pulmonary: No shortness of breath Gastrointestinal: denies abdominal pain No nausea. No vomiting. Genitourinary: No pain while urinating. Denies blood in urine. All other negative except as mentioned in HPI however very limited as pt not cooperative Physical Examination: General Appearance: Comfortable, in no acute respiratory distress, limited exam as pt unco-operative . Vitals reviewed and noted as below pt refused further physical exam. Says "I am all right" Labs/imaging reviewed. Past medical history, past surgical history, family history, social history, allergy reviewed and noted as below Family hx: no hx of CKD. Rest non-contributory Objective - Vital Signs/Intake and Output Vital Signs (last 24 hours): Temp Pulse Resp BP Pulse Ox 97.4 F L 86 20 122/77 99 03/12/18 07:56 03/12/18 09:17 03/12/18 07:56 03/12/18 09:17 03/12/18 07:56 Intake and Output: 03/12/18 03/12/18 06:59 18:59 Output Total 750 Balance -750 - Medications Medications: Current Medications Aspirin (Aspirin Chewable) 81 mg PO DAILY [facility] Last Admin: 03/12/18 09:13 Dose: 81 mg Cilostazol (Pletal) 100 mg PO BID [facility] Last Admin: 03/12/18 09:13 Dose: 100 mg Ferrous Gluconate (Fergon) 324 mg PO TID [facility] Last Admin: 03/12/18 13:48 Dose: 324 mg Heparin Sodium (Porcine) (Heparin) 5,000 units SC Q12 [facility] Last Admin: 03/12/18 09:14 Dose: 5,000 units Lisinopril (Zestril) 5 mg PO DAILY [facility] Last Admin: 03/12/18 09:14 Dose: 5 mg Meclizine HCl (Antivert) 25 mg PO Q8 [facility] Last Admin: 03/12/18 13:48 Dose: Not Given Pantoprazole Sodium (Protonix Ec Tab) 40 mg PO DAILY [facility] Last Admin: 03/12/18 09:13 Dose: 40 mg Potassium Chloride (Klor-Con 10) 10 meq PO BRK [facility] Last Admin: 03/12/18 08:44 Dose: 10 meq Potassium Chloride (Klor-Con 10) 10 meq PO BRK [facility] Last Admin: 03/12/18 14:58 Dose: Not Given Rosuvastatin Calcium (Crestor) 5 mg PO HS [facility] Last Admin: 03/11/18 21:33 Dose: Not Given Tamsulosin HCl (Flomax) 0.4 mg PO DAILY [facility] Last Admin: 03/12/18 09:13 Dose: 0.4 mg Vitamin B Complex/Vit C/Folic Acid (Nephro-Renay) 1 tab PO 0800 [facility] Last Admin: 03/12/18 08:44 Dose: 1 tab - Labs Labs: 03/10/18 14:15 03/12/18 14:02
--- NOTE | 2018-03-12 20:31 | CP.PCM.PN ---
Subjective - Date & Time of Evaluation Date of Evaluation: 03/12/18 Time of Evaluation: 10:15 - Subjective Subjective: clinically same Objective - Vital Signs/Intake and Output Vital Signs (last 24 hours): Temp Pulse Resp BP Pulse Ox 98 F 91 H 20 105/66 98 03/12/18 15:00 03/12/18 15:00 03/12/18 15:00 03/12/18 15:00 03/12/18 15:00 - Medications Medications: Current Medications Aspirin (Aspirin Chewable) 81 mg PO DAILY [facility] Last Admin: 03/12/18 09:13 Dose: 81 mg Cilostazol (Pletal) 100 mg PO BID [facility] Last Admin: 03/12/18 17:42 Dose: 100 mg Ferrous Gluconate (Fergon) 324 mg PO TID [facility] Last Admin: 03/12/18 17:42 Dose: 324 mg Heparin Sodium (Porcine) (Heparin) 5,000 units SC Q12 [facility] Last Admin: 03/12/18 09:14 Dose: 5,000 units Lisinopril (Zestril) 5 mg PO DAILY [facility] Last Admin: 03/12/18 09:14 Dose: 5 mg Meclizine HCl (Antivert) 25 mg PO Q8 [facility] Last Admin: 03/12/18 13:48 Dose: Not Given Pantoprazole Sodium (Protonix Ec Tab) 40 mg PO DAILY [facility] Last Admin: 03/12/18 09:13 Dose: 40 mg Potassium Chloride (Klor-Con 10) 10 meq PO BRK [facility] Last Admin: 03/12/18 08:44 Dose: 10 meq Potassium Chloride (Klor-Con 10) 10 meq PO BRK [facility] Last Admin: 03/12/18 14:58 Dose: Not Given Rosuvastatin Calcium (Crestor) 5 mg PO HS [facility] Last Admin: 03/11/18 21:33 Dose: Not Given Tamsulosin HCl (Flomax) 0.4 mg PO DAILY [facility] Last Admin: 03/12/18 09:13 Dose: 0.4 mg Vitamin B Complex/Vit C/Folic Acid (Nephro-Renay) 1 tab PO 0800 [facility] Last Admin: 03/12/18 08:44 Dose: 1 tab - Labs Labs: 03/10/18 14:15 03/12/18 14:02
[2018-03-13] MEDS: Potassium Chloride 10 mEq ER Tab PO SCH ×2 (08:42→09:13)
[2018-03-13] MEDS: Multivitamin Vitamin B Complex (Nephro-Vite) Tab PO SCH (08:42)
[2018-03-13] MEDS: Pantoprazole 40 mg EC Tab PO SCH (09:11)
[2018-03-13] MEDS: Cilostazol 100 mg Tab UD PO SCH ×2 (09:12→18:22)
--- NOTE | 2018-03-13 11:30 | PCM.PSYCH ---
Initial Psychiatric Evaluation - Initial Psychiatric Evaluation Type of Admission: Voluntary Legal Status: Capacity Chief Complaint (in patient's own words): "I'm fine, who are you!?" History of Present Illness and Precipitating Events: The patient is seen, chart reviewed and case discussed. Consultation was requested because of his mental status. This is a 62-year-old -[place] male, , has 4 children all adults, homeless and he claims he is retired. The patient is a very poor historian as he doesn't know details of his own history and he only states he is here because he was dizzy. He also states he has a doctor and he did bring some medical medications such as aspirin, Zocor, meclizine and lisinopril/hydrochlorothiazide. He denies having a psychiatric condition and he denies feeling depressed, suicidal, homicidal or anxious. However, he is overall demeanor looks like a chronic psychotic patient. Also, his memory is very poor and attention is also low. He couldn't remember basic facts and he failed in immediate and five-minute recall's. His cooperation was low as well. He denies drug and alcohol use and he gets upsets when his questions about this and he screamed "cigarettes killed my friend" Past psych history: None known Medical history: Hypertension, high cholesterol, BPH, dizziness Family psych history: Denied Current Medications: Active Medications Generic Name Dose Route Start Last Admin Trade Name Gwen PRN Reason Stop Dose Admin Aspirin 81 mg 03/09/18 10:00 03/13/18 09:12 Aspirin Chewable PO 81 mg DAILY [facility] Administration Cilostazol 100 mg 03/10/18 10:00 03/13/18 09:12 Pletal PO 100 mg BID [facility] Administration Ferrous Gluconate 324 mg 03/10/18 18:00 03/13/18 09:12 Fergon PO 324 mg TID [facility] Administration Heparin Sodium (Porcine) 5,000 units 03/10/18 10:00 03/13/18 09:13 Heparin SC 5,000 units Q12 [facility] Administration Lisinopril 5 mg 03/12/18 10:03/13/18 09:12 Zestril PO 5 mg DAILY [facility] Administration Meclizine HCl 25 mg 03/08/18 22:00 03/13/18 05:05 Antivert PO Not Given Q8 [facility] Pantoprazole Sodium 40 mg 03/09/18 10:00 03/13/18 09:11 Protonix Ec Tab PO 40 mg DAILY [facility] Administration Potassium Chloride 10 meq 03/11/18 08:00 03/13/18 08:42 Klor-Con 10 PO 10 meq BRK [facility] Administration Potassium Chloride 10 meq 03/12/18 13:00 03/13/18 09:13 Klor-Con 10 PO Not Given BRK [facility] Rosuvastatin Calcium 5 mg 03/08/18 22:00 03/12/18 21:08 Crestor PO Not Given HS [facility] Tamsulosin HCl 0.4 mg 03/09/18 10:00 03/13/18 09:12 Flomax PO 0.4 mg DAILY [facility] Administration Vitamin B Complex/Vit C/Folic Acid 1 tab 03/11/18 08:00 03/13/18 08:42 Nephro-Renay PO 1 tab 0800 [facility] Administration Past Psychiatric History - Past Psychiatric History Pertinent Medical Hx (Current Medical&Sleep Prob, Allergies): Allergies Allergy/AdvReac Type Severity Reaction Status Date / Time No Known Allergies Allergy Verified 03/08/18 16:07 Aspirin 81 mg PO DAILY 03/04/18 Lisinopril/Hydrochlorothiazide [Lisinopril-Hctz 20-25 mg Tab] 1 tab PO DAILY 05/11 Meclizine [Meclizine*] 1 tab PO Q8 03/04/18 Simvastatin 20 mg PO DAILY 03/04/18 Tamsulosin [Flomax] 0.4 mg PO DAILY 03/04/18 Review of Systems - Psychiatric Psychiatric: Confusion, Difficulty Concentrating, Irritability, Memory Loss. absent: Hallucinations, Homicidal Ideation, Paranoia, Suicidal Ideation Mental Status Examination - Personal Presentation Personal Presentation: Looks older than stated age - Affect Affect: Blunted - Motor Activity Motor Activity: Psychomotor Agitation (mild) - Reliability in Providing Information Reliability in Providing Information: Poor, due to alteration in thoughts, Poor , due to cognitve impairment - Speech Speech: Disorganized - Mood Mood: Other (irat) - Formal Thought Process Formal Thought Process: No Impairment - Cognitive Functions Orientation: Place Sensorium: Alert Attention/Concentration: Easily distracted Abstract Thinking: [place] Estimate of Intelligence: Below average Judgement: Imparied, as evidence by: Poor judgement Memory: Recent impaired, as evidence by: Inability to recall events of the day, Remote impaired as evidenced by: Inability to recall sig life events - Risk Risk: Diminished functioning DSM 5 DX - DSM 5 DSM 5 Diagnosis: Dementia - of unknown cause r/o chronic psychosis - Recommended/Plan of Treatment Treatment Recommendations and Plan of Treatment: No need for meds at this point and he is refusing Collateral info Trazodone for sleep Support given 33 min
--- NOTE | 2018-03-13 14:38 | CP.PCM.PN ---
Subjective - Date & Time of Evaluation Date of Evaluation: 03/13/18 Time of Evaluation: 14:37 - Subjective Subjective: Nephrology Consultation Note: Assessment: Stable Acute Kidney Injury (N17.9) likely due to pre-renal state, low BP/hypotension: IMPROVING Anemia, HTN Hypokalemia Plan No acute need for renal replacement therapy at this time. Hypertension control with meds as ordered. Maintain hemodynamics stable. Avoid hypotension. Patient on acei--lowered to 5 mg/day. hold diuretics for now added iron and MVI supplements psych eval noted. pt with possible dementia/psychosis Dose meds/antibiotics for reduced GFR. Avoid fleets enema/magnesium based laxatives. Avoid nephrotoxins/NSAIDs/ iodinated contrast (unless needed emergently) Glycemic control Further work up/management as per primary team pt stable for d/c from renal perspective when planned, f/up renal clinic 1 week Thanks for allowing me to participate in care of your patient. Please call if any Qs. had d/w team Dr Satnam Patton Office: [phone] Chief Complaint; none Reason for consult: Acute Kidney Injury HPI: Pt is a 62 M with hx of hypertension (years) presented with complaints of dizziness and low BP, also with leg pain for last few days. renal consult for RUSESLL. pt not very cooperative and not providing much hx. Denies OTC/herbal meds or NSAIDs No recent iodinated contrast exposure. Noted obvious episodes of low BP. ROS: Cardiovascular: No chest pain. Pulmonary: No shortness of breath Gastrointestinal: denies abdominal pain No nausea. No vomiting. Genitourinary: No pain while urinating. Denies blood in urine. All other negative except as mentioned in HPI however very limited as pt not cooperative Physical Examination: General Appearance: Comfortable, in no acute respiratory distress, limited exam as pt unco-operative . Vitals reviewed and noted as below pt refused further physical exam. Says "I am all right" Labs/imaging reviewed. Past medical history, past surgical history, family history, social history, allergy reviewed and noted as below Family hx: no hx of CKD. Rest non-contributory Objective - Vital Signs/Intake and Output Vital Signs (last 24 hours): Temp Pulse Resp BP Pulse Ox 98 F 91 H 20 105/66 98 03/12/18 15:00 03/12/18 15:00 03/12/18 15:00 03/12/18 15:00 03/12/18 15:00 - Medications Medications: Current Medications Aspirin (Aspirin Chewable) 81 mg PO DAILY [facility] Last Admin: 03/13/18 09:12 Dose: 81 mg Cilostazol (Pletal) 100 mg PO BID [facility] Last Admin: 03/13/18 09:12 Dose: 100 mg Ferrous Gluconate (Fergon) 324 mg PO TID [facility] Last Admin: 03/13/18 09:12 Dose: 324 mg Heparin Sodium (Porcine) (Heparin) 5,000 units SC Q12 [facility] Last Admin: 03/13/18 09:13 Dose: 5,000 units Lisinopril (Zestril) 5 mg PO DAILY [facility] Last Admin: 03/13/18 09:12 Dose: 5 mg Meclizine HCl (Antivert) 25 mg PO Q8 [facility] Last Admin: 03/13/18 13:23 Dose: Not Given Pantoprazole Sodium (Protonix Ec Tab) 40 mg PO DAILY [facility] Last Admin: 03/13/18 09:11 Dose: 40 mg Potassium Chloride (Klor-Con 10) 10 meq PO BRK [facility] Last Admin: 03/13/18 08:42 Dose: 10 meq Potassium Chloride (Klor-Con 10) 10 meq PO BRK [facility] Last Admin: 03/13/18 09:13 Dose: Not Given Rosuvastatin Calcium (Crestor) 5 mg PO HS [facility] Last Admin: 03/12/18 21:08 Dose: Not Given Tamsulosin HCl (Flomax) 0.4 mg PO DAILY [facility] Last Admin: 03/13/18 09:12 Dose: 0.4 mg Vitamin B Complex/Vit C/Folic Acid (Nephro-Renay) 1 tab PO 0800 [facility] Last Admin: 03/13/18 08:42 Dose: 1 tab - Labs Labs: 03/10/18 14:15 03/12/18 14:02
--- NOTE | 2018-03-13 16:09 | CP.PCM.PN ---
Subjective - Date & Time of Evaluation Date of Evaluation: 03/13/18 Time of Evaluation: 10:00 - Subjective Subjective: clinically same Objective - Vital Signs/Intake and Output Vital Signs (last 24 hours): Temp Pulse Resp BP Pulse Ox 98 F 91 H 20 105/66 98 03/12/18 15:00 03/12/18 15:00 03/12/18 15:00 03/12/18 15:00 03/12/18 15:00 - Medications Medications: Current Medications Aspirin (Aspirin Chewable) 81 mg PO DAILY [facility] Last Admin: 03/13/18 09:12 Dose: 81 mg Cilostazol (Pletal) 100 mg PO BID [facility] Last Admin: 03/13/18 09:12 Dose: 100 mg Ferrous Gluconate (Fergon) 324 mg PO TID [facility] Last Admin: 03/13/18 13:23 Dose: Not Given Heparin Sodium (Porcine) (Heparin) 5,000 units SC Q12 [facility] Last Admin: 03/13/18 09:13 Dose: 5,000 units Lisinopril (Zestril) 5 mg PO DAILY [facility] Last Admin: 03/13/18 09:12 Dose: 5 mg Meclizine HCl (Antivert) 25 mg PO Q8 [facility] Last Admin: 03/13/18 13:23 Dose: Not Given Pantoprazole Sodium (Protonix Ec Tab) 40 mg PO DAILY [facility] Last Admin: 03/13/18 09:11 Dose: 40 mg Potassium Chloride (Klor-Con 10) 10 meq PO BRK [facility] Last Admin: 03/13/18 08:42 Dose: 10 meq Potassium Chloride (Klor-Con 10) 10 meq PO BRK [facility] Last Admin: 03/13/18 09:13 Dose: Not Given Rosuvastatin Calcium (Crestor) 5 mg PO HS [facility] Last Admin: 03/12/18 21:08 Dose: Not Given Tamsulosin HCl (Flomax) 0.4 mg PO DAILY [facility] Last Admin: 03/13/18 09:12 Dose: 0.4 mg Vitamin B Complex/Vit C/Folic Acid (Nephro-Renay) 1 tab PO 0800 [facility] Last Admin: 03/13/18 08:42 Dose: 1 tab - Labs Labs: 03/10/18 14:15 03/12/18 14:02
[2018-03-14] MEDS: Potassium Chloride 10 mEq ER Tab PO SCH ×2 (07:40→10:04)
[2018-03-14] MEDS: Multivitamin Vitamin B Complex (Nephro-Vite) Tab PO SCH (07:40)
[2018-03-14 08:53] LABS: BASO % 0.3 % (0.0-2.0); EOS # 0.2 K/uL (0.0-0.7); EOS % 5.3 % (0.0-4.0); HEMOGLOBIN 11.9 g/dL (12.0-18.0); LYMPH % 47.4 % (20.0-40.0); MEAN CELL VOLUME 85.4 fL (80.0-94.0); MEAN CORPUSCULAR HEMOGLOBIN 28.7 pg (27.0-31.0); MEAN CORPUSCULAR HGB CONC 33.6 g/dL (33.0-37.0); MEAN PLATELET VOLUME 7.2 fL (7.2-11.7); MONO # 0.4 K/uL (0.0-0.8); MONO % 8.5 % (0.0-10.0); NEUT # 1.6 K/uL (1.8-7.0); NEUT % 38.5 % (50.0-75.0); NRBC % 0.1 % (0.0-2.0); RBC 4.13 Mil/uL (4.40-5.90); RED CELL DISTRIBUTION WIDTH 15.8 % (11.5-14.5); WHITE BLOOD COUNT 4.1 K/uL (4.8-10.8)
[2018-03-14 09:16] LABS: ALB/GLOB RATIO 1.1 (1.0-2.1); ALBUMIN 3.6 g/dL (3.5-5.0); ALT/SGPT 46 U/L (21-72); AST/SGOT 37 U/L (17-59); BLOOD UREA NITROGEN 14 mg/dL (9-20); CALCIUM 9.1 mg/dl (8.6-10.4); GFR NON-AFRICAN AMERICAN 51
[2018-03-14] MEDS: Pantoprazole 40 mg EC Tab PO SCH (09:58)
[2018-03-14] MEDS: Cilostazol 100 mg Tab UD PO SCH ×3 (10:04→17:27)
--- NOTE | 2018-03-14 12:17 | CP.PCM.PN ---
Subjective - Date & Time of Evaluation Date of Evaluation: 03/14/18 Time of Evaluation: 09:15 - Subjective Subjective: clinically same Objective - Vital Signs/Intake and Output Vital Signs (last 24 hours): Temp Pulse Resp BP Pulse Ox 98.0 F 71 20 112/73 100 03/14/18 07:49 03/14/18 07:49 03/14/18 07:49 03/14/18 07:49 03/14/18 07:49 Intake and Output: 03/14/18 03/14/18 06:59 18:59 Intake Total 300 Output Total 240 Balance 60 - Medications Medications: Current Medications Aspirin (Aspirin Chewable) 81 mg PO DAILY [facility] Last Admin: 03/14/18 11:08 Dose: 81 mg Cilostazol (Pletal) 100 mg PO BID [facility] Last Admin: 03/14/18 10:04 Dose: 100 mg Ferrous Gluconate (Fergon) 324 mg PO TID [facility] Last Admin: 03/14/18 09:58 Dose: 324 mg Heparin Sodium (Porcine) (Heparin) 5,000 units SC Q12 [facility] Last Admin: 03/14/18 10:04 Dose: Not Given Lisinopril (Zestril) 5 mg PO DAILY [facility] Last Admin: 03/14/18 09:59 Dose: 5 mg Meclizine HCl (Antivert) 25 mg PO Q8 [facility] Last Admin: 03/14/18 05:04 Dose: Not Given Pantoprazole Sodium (Protonix Ec Tab) 40 mg PO DAILY [facility] Last Admin: 03/14/18 09:58 Dose: 40 mg Potassium Chloride (Klor-Con 10) 10 meq PO BRK [facility] Last Admin: 03/14/18 07:40 Dose: 10 meq Potassium Chloride (Klor-Con 10) 10 meq PO BRK [facility] Last Admin: 03/14/18 10:04 Dose: Not Given Rosuvastatin Calcium (Crestor) 5 mg PO HS [facility] Last Admin: 03/13/18 21:59 Dose: Not Given Tamsulosin HCl (Flomax) 0.4 mg PO DAILY [facility] Last Admin: 03/14/18 09:58 Dose: 0.4 mg Vitamin B Complex/Vit C/Folic Acid (Nephro-Renay) 1 tab PO 0800 [facility] Last Admin: 03/14/18 07:40 Dose: 1 tab - Labs Labs: 03/14/18 08:45 03/14/18 08:45
[2018-03-15 07:31] LABS: BASO % 0.3 % (0.0-2.0); EOS # 0.2 K/uL (0.0-0.7); LYMPH # 2.3 K/uL (1.0-4.3); LYMPH % 48.7 % (20.0-40.0); MEAN CELL VOLUME 84.7 fL (80.0-94.0); MEAN CORPUSCULAR HEMOGLOBIN 29.3 pg (27.0-31.0); MEAN CORPUSCULAR HGB CONC 34.7 g/dL (33.0-37.0); MEAN PLATELET VOLUME 7.6 fL (7.2-11.7); MONO # 0.3 K/uL (0.0-0.8); MONO % 6.6 % (0.0-10.0); NEUT # 1.9 K/uL (1.8-7.0); NEUT % 39.4 % (50.0-75.0); NRBC % 0.1 % (0.0-2.0); RBC 4.07 Mil/uL (4.40-5.90); RED CELL DISTRIBUTION WIDTH 15.8 % (11.5-14.5); WHITE BLOOD COUNT 4.8 K/uL (4.8-10.8)
[2018-03-15 08:13] LABS: ALB/GLOB RATIO 0.9 (1.0-2.1); ALBUMIN 3.4 g/dL (3.5-5.0); ALT/SGPT 44 U/L (21-72); AST/SGOT 28 U/L (17-59); BLOOD UREA NITROGEN 15 mg/dL (9-20); CALCIUM 9.1 mg/dl (8.6-10.4); GFR NON-AFRICAN AMERICAN 51
[2018-03-15] MEDS: Multivitamin Vitamin B Complex (Nephro-Vite) Tab PO SCH (08:25)
[2018-03-15] MEDS: Potassium Chloride 10 mEq ER Tab PO SCH ×2 (08:30→09:59)
[2018-03-15] MEDS: Cilostazol 100 mg Tab UD PO SCH ×2 (09:59→17:50)
[2018-03-15] MEDS: Pantoprazole 40 mg EC Tab PO SCH (09:59)
--- NOTE | 2018-03-15 20:13 | CP.PCM.PN ---
Subjective - Date & Time of Evaluation Date of Evaluation: 03/15/18 Time of Evaluation: 08:30 - Subjective Subjective: clinically same Objective - Vital Signs/Intake and Output Vital Signs (last 24 hours): Temp Pulse Resp BP Pulse Ox 98.2 F 85 20 117/79 100 03/15/18 15:00 03/15/18 15:00 03/15/18 15:00 03/15/18 15:00 03/15/18 15:00 Intake and Output: 03/15/18 03/16/18 18:59 06:59 Intake Total 1040 Output Total 950 Balance 90 - Medications Medications: Current Medications Aspirin (Aspirin Chewable) 81 mg PO DAILY [facility] Last Admin: 03/15/18 09:59 Dose: 81 mg Cilostazol (Pletal) 100 mg PO BID [facility] Last Admin: 03/15/18 17:50 Dose: 100 mg Ferrous Gluconate (Fergon) 324 mg PO TID [facility] Last Admin: 03/15/18 17:49 Dose: 324 mg Heparin Sodium (Porcine) (Heparin) 5,000 units SC Q12 [facility] Last Admin: 03/15/18 10:00 Dose: Not Given Lisinopril (Zestril) 5 mg PO DAILY [facility] Last Admin: 03/15/18 09:59 Dose: 5 mg Meclizine HCl (Antivert) 25 mg PO Q8 [facility] Last Admin: 03/15/18 14:01 Dose: Not Given Pantoprazole Sodium (Protonix Ec Tab) 40 mg PO DAILY [facility] Last Admin: 03/15/18 09:59 Dose: 40 mg Potassium Chloride (Klor-Con 10) 10 meq PO BRK [facility] Last Admin: 03/15/18 09:59 Dose: Not Given Rosuvastatin Calcium (Crestor) 5 mg PO HS [facility] Last Admin: 03/14/18 21:23 Dose: 5 mg Tamsulosin HCl (Flomax) 0.4 mg PO DAILY [facility] Last Admin: 03/15/18 09:59 Dose: 0.4 mg Vitamin B Complex/Vit C/Folic Acid (Nephro-Renay) 1 tab PO 0800 [facility] Last Admin: 03/15/18 08:25 Dose: 1 tab - Labs Labs: 03/15/18 07:17 03/15/18 07:17
[2018-03-16] MEDS: Pantoprazole 40 mg EC Tab PO SCH (09:31)
[2018-03-16] MEDS: Cilostazol 100 mg Tab UD PO SCH ×2 (09:31→17:20)
[2018-03-16] MEDS: Multivitamin Vitamin B Complex (Nephro-Vite) Tab PO SCH (09:32)
[2018-03-16] MEDS: Potassium Chloride 10 mEq ER Tab PO SCH (09:32)
--- NOTE | 2018-03-16 18:08 | CP.PCM.PN ---
Subjective - Date & Time of Evaluation Date of Evaluation: 03/16/18 Time of Evaluation: 08:30 - Subjective Subjective: clinically same Objective - Vital Signs/Intake and Output Vital Signs (last 24 hours): Temp Pulse Resp BP Pulse Ox 98.5 F 78 20 105/70 98 03/16/18 15:15 03/16/18 15:15 03/16/18 15:15 03/16/18 15:15 03/16/18 15:15 Intake and Output: 03/16/18 03/16/18 06:59 18:59 Intake Total 800 Output Total 450 500 Balance -450 300 - Medications Medications: Current Medications Aspirin (Aspirin Chewable) 81 mg PO DAILY [facility] Last Admin: 03/16/18 09:31 Dose: 81 mg Cilostazol (Pletal) 100 mg PO BID [facility] Last Admin: 03/16/18 17:20 Dose: Not Given Ferrous Gluconate (Fergon) 324 mg PO TID [facility] Last Admin: 03/16/18 17:20 Dose: Not Given Lisinopril (Zestril) 5 mg PO DAILY [facility] Last Admin: 03/16/18 09:33 Dose: Not Given Meclizine HCl (Antivert) 25 mg PO Q8 [facility] Last Admin: 03/16/18 14:08 Dose: Not Given Pantoprazole Sodium (Protonix Ec Tab) 40 mg PO DAILY [facility] Last Admin: 03/16/18 09:31 Dose: 40 mg Potassium Chloride (Klor-Con 10) 10 meq PO BRK [facility] Last Admin: 03/16/18 09:32 Dose: 10 meq Rosuvastatin Calcium (Crestor) 5 mg PO HS [facility] Last Admin: 03/15/18 21:40 Dose: Not Given Tamsulosin HCl (Flomax) 0.4 mg PO DAILY [facility] Last Admin: 03/16/18 09:33 Dose: 0.4 mg Trazodone HCl (Desyrel) 50 mg PO HS PRN PRN Reason: Insomnia Vitamin B Complex/Vit C/Folic Acid (Nephro-Renay) 1 tab PO 0800 [facility] Last Admin: 03/16/18 09:32 Dose: 1 tab - Labs Labs: 03/15/18 07:17 03/15/18 07:17
[2018-03-17] MEDS: Multivitamin Vitamin B Complex (Nephro-Vite) Tab PO SCH (09:09)
[2018-03-17] MEDS: Cilostazol 100 mg Tab UD PO SCH ×2 (09:09→17:13)
[2018-03-17] MEDS: Pantoprazole 40 mg EC Tab PO SCH (09:11)
[2018-03-17] MEDS: Potassium Chloride 10 mEq ER Tab PO SCH (09:11)
--- NOTE | 2018-03-17 13:43 | PCM.PYCHPN ---
Psychiatric Progress Note - Psychiatric Progress Note Patient seen today, length of contact: 18 min Patient Chief Complaint: "I'm OK" Problems Identified/Issues Discussed: Patient is seen again, chart reviewed and case discussed with his DIRECTOR CASE. The patient was more alert and oriented but again irate and uncooperative. He plans to go home, get his rodriguez and "move on with my life." Patient denied suicidal or homicidal ideation, he has no delusions even though he looks somewhat paranoid. He denies hallucinations. He wouldn't cooperate for a full cognitive assessment but as before he looked like he was developing dementia. He also does not shower and does not take care of his ADLs and has an odd demeanor, which may be due to chronic psychosis. Risperdal is recommended and risks discussed and he seemingly agreed but is not clear if he will continue outside. Support and psychoeducation given At this point, patient has the capacity to make medical decisions and is cleared psychiatrically. If he does not improve in the future, he may need a guardian. Medication Change: Yes (Add low-dose risperidone) Mental Status Examination - Cognitive Function Orientation: Person, Place Memory: Impaired Attention: Poor Concentration: Poor Fund of Knowledge: Poor - Mood Mood: Other (irat) - Affect Affect: Blunted - Speech Speech: Slurred - Formal Thought Process Formal Thought Process: Paranoia (Likely) - Suicidal Ideation Suicidal Ideation: No - Homicidal Ideation Homicidal Ideation: No Goal/Treatment Plan - Goal/Treatment Plan Need for Continued Stay: Other (Medical) Progress Toward Problem(s) and Goals/Treatment Plan: Risperidone 0.5 mg at bedtime Collateral info Trazodone for sleep Support given Cleared by psych
--- NOTE | 2018-03-17 16:14 | CP.PCM.PN ---
Subjective - Date & Time of Evaluation Date of Evaluation: 03/17/18 Time of Evaluation: 16:13 - Subjective Subjective: Nephrology Consultation Note: Assessment: Stable Acute Kidney Injury (N17.9) likely due to pre-renal state, low BP/hypotension: IMPROVING Anemia, HTN Hypokalemia CKD 3 psychosis/dementia Plan No acute need for renal replacement therapy at this time. Hypertension control with meds as ordered. Maintain hemodynamics stable. Avoid hypotension. Patient was on acei--stopped due to low BP. hold diuretics for now continue with iron and MVI supplements psych eval noted. pt with possible dementia/psychosis Dose meds/antibiotics for reduced GFR. Avoid fleets enema/magnesium based laxatives. Avoid nephrotoxins/NSAIDs/ iodinated contrast (unless needed emergently) Glycemic control Further work up/management as per primary team pt stable for d/c from renal perspective when planned, f/up renal clinic 1 week Thanks for allowing me to participate in care of your patient. Please call if any Qs. had d/w team Dr Satnam Patton Office: [phone] Chief Complaint; none Reason for consult: Acute Kidney Injury HPI: Pt is a 62 M with hx of hypertension (years) presented with complaints of dizziness and low BP, also with leg pain for last few days. renal consult for RUSSELL. pt not very cooperative and not providing much hx. Denies OTC/herbal meds or NSAIDs No recent iodinated contrast exposure. Noted obvious episodes of low BP. ROS: Cardiovascular: No chest pain. Pulmonary: No shortness of breath Gastrointestinal: denies abdominal pain No nausea. No vomiting. Genitourinary: No pain while urinating. Denies blood in urine. All other negative except as mentioned in HPI however very limited as pt not cooperative Physical Examination: General Appearance: Comfortable, in no acute respiratory distress, limited exam as pt unco-operative . Vitals reviewed and noted as below pt refused further physical exam. Says "I am all right" Labs/imaging reviewed. Past medical history, past surgical history, family history, social history, allergy reviewed and noted as below Family hx: no hx of CKD. Rest non-contributory Objective - Vital Signs/Intake and Output Vital Signs (last 24 hours): Temp Pulse Resp BP Pulse Ox 98.0 F 74 20 106/60 96 03/17/18 15:43 03/17/18 15:43 03/17/18 15:43 03/17/18 15:43 03/17/18 15:43 - Medications Medications: Current Medications Aspirin (Aspirin Chewable) 81 mg PO DAILY [facility] Last Admin: 03/17/18 09:09 Dose: 81 mg Cilostazol (Pletal) 100 mg PO BID [facility] Last Admin: 03/17/18 09:09 Dose: 100 mg Ferrous Gluconate (Fergon) 324 mg PO TID [facility] Last Admin: 03/17/18 13:59 Dose: Not Given Meclizine HCl (Antivert) 25 mg PO Q8 [facility] Last Admin: 03/17/18 13:59 Dose: Not Given Pantoprazole Sodium (Protonix Ec Tab) 40 mg PO DAILY [facility] Last Admin: 03/17/18 09:11 Dose: Not Given Potassium Chloride (Klor-Con 10) 10 meq PO BRK [facility] Last Admin: 03/17/18 09:11 Dose: Not Given Risperidone (Risperdal Tab) 0.5 mg PO HS [facility] Rosuvastatin Calcium (Crestor) 5 mg PO HS [facility] Last Admin: 03/16/18 21:22 Dose: Not Given Tamsulosin HCl (Flomax) 0.4 mg PO DAILY [facility] Last Admin: 03/17/18 09:09 Dose: 0.4 mg Trazodone HCl (Desyrel) 50 mg PO HS PRN PRN Reason: Insomnia Vitamin B Complex/Vit C/Folic Acid (Nephro-Renay) 1 tab PO 0800 [facility] Last Admin: 03/17/18 09:09 Dose: 1 tab - Labs Labs: 03/15/18 07:17 03/15/18 07:17
--- NOTE | 2018-03-17 18:28 | CP.PCM.PN ---
Subjective - Date & Time of Evaluation Date of Evaluation: 03/17/18 Time of Evaluation: 08:30 - Subjective Subjective: clinically same Objective - Vital Signs/Intake and Output Vital Signs (last 24 hours): Temp Pulse Resp BP Pulse Ox 98.0 F 74 20 106/60 96 03/17/18 15:43 03/17/18 15:43 03/17/18 15:43 03/17/18 15:43 03/17/18 15:43 - Medications Medications: Current Medications Aspirin (Aspirin Chewable) 81 mg PO DAILY [facility] Last Admin: 03/17/18 09:09 Dose: 81 mg Cilostazol (Pletal) 100 mg PO BID [facility] Last Admin: 03/17/18 17:13 Dose: 100 mg Ferrous Gluconate (Fergon) 324 mg PO TID [facility] Last Admin: 03/17/18 17:13 Dose: 324 mg Meclizine HCl (Antivert) 25 mg PO Q8 [facility] Last Admin: 03/17/18 13:59 Dose: Not Given Pantoprazole Sodium (Protonix Ec Tab) 40 mg PO DAILY [facility] Last Admin: 03/17/18 09:11 Dose: Not Given Potassium Chloride (Klor-Con 10) 10 meq PO BRK [facility] Last Admin: 03/17/18 09:11 Dose: Not Given Risperidone (Risperdal Tab) 0.5 mg PO HS [facility] Rosuvastatin Calcium (Crestor) 5 mg PO HS [facility] Last Admin: 03/16/18 21:22 Dose: Not Given Tamsulosin HCl (Flomax) 0.4 mg PO DAILY [facility] Last Admin: 03/17/18 09:09 Dose: 0.4 mg Trazodone HCl (Desyrel) 50 mg PO HS PRN PRN Reason: Insomnia Vitamin B Complex/Vit C/Folic Acid (Nephro-Renay) 1 tab PO 0800 [facility] Last Admin: 03/17/18 09:09 Dose: 1 tab - Labs Labs: 03/15/18 07:17 03/15/18 07:17
[2018-03-18] MEDS: Multivitamin Vitamin B Complex (Nephro-Vite) Tab PO SCH (08:00)
[2018-03-18] MEDS: Potassium Chloride 10 mEq ER Tab PO SCH (09:00)
[2018-03-18] MEDS: Pantoprazole 40 mg EC Tab PO SCH (11:00)
[2018-03-18] MEDS: Cilostazol 100 mg Tab UD PO SCH ×2 (11:00→17:05)
--- NOTE | 2018-03-18 17:28 | CP.PCM.PN ---
Subjective - Date & Time of Evaluation Date of Evaluation: 03/18/18 Time of Evaluation: 08:30 - Subjective Subjective: clinically same Objective - Vital Signs/Intake and Output Vital Signs (last 24 hours): Temp Pulse Resp BP Pulse Ox 98.3 F 71 20 116/73 99 03/18/18 16:04 03/18/18 16:04 03/18/18 16:04 03/18/18 16:04 03/18/18 16:04 Intake and Output: 03/18/18 03/18/18 06:59 18:59 Output Total 500 Balance -500 - Medications Medications: Current Medications Aspirin (Aspirin Chewable) 81 mg PO DAILY [facility] Last Admin: 03/18/18 10:30 Dose: Not Given Cilostazol (Pletal) 100 mg PO BID [facility] Last Admin: 03/18/18 17:05 Dose: 100 mg Ferrous Gluconate (Fergon) 324 mg PO TID [facility] Last Admin: 03/18/18 17:05 Dose: 324 mg Meclizine HCl (Antivert) 25 mg PO Q8 [facility] Last Admin: 03/18/18 13:28 Dose: Not Given Pantoprazole Sodium (Protonix Ec Tab) 40 mg PO DAILY [facility] Last Admin: 03/18/18 11:00 Dose: Not Given Potassium Chloride (Klor-Con 10) 10 meq PO BRK [facility] Last Admin: 03/18/18 09:00 Dose: Not Given Risperidone (Risperdal Tab) 0.5 mg PO HS [facility] Last Admin: 03/17/18 21:37 Dose: 0.5 mg Rosuvastatin Calcium (Crestor) 5 mg PO HS [facility] Last Admin: 03/17/18 21:37 Dose: 5 mg Tamsulosin HCl (Flomax) 0.4 mg PO DAILY [facility] Last Admin: 03/18/18 10:30 Dose: Not Given Trazodone HCl (Desyrel) 50 mg PO HS PRN PRN Reason: Insomnia Vitamin B Complex/Vit C/Folic Acid (Nephro-Renay) 1 tab PO 0800 [facility] Last Admin: 03/18/18 08:00 Dose: Not Given - Labs Labs: 03/15/18 07:17 03/15/18 07:17 - Constitutional Appears: Well - Head Exam Head Exam: ATRAUMATIC, NORMAL INSPECTION, NORMOCEPHALIC - Eye Exam Eye Exam: EOMI, Normal appearance, PERRL Pupil Exam: NORMAL ACCOMODATION, PERRL - ENT Exam ENT Exam: Mucous Membranes Moist, Normal Exam - Neck Exam Neck Exam: Full ROM, Normal Inspection. absent: Lymphadenopathy - Respiratory Exam Respiratory Exam: Decreased Breath Sounds - Cardiovascular Exam Cardiovascular Exam: +S1, +S2. absent: REGULAR RHYTHM - GI/Abdominal Exam GI & Abdominal Exam: Soft, Diminished Bowel Sounds - Rectal Exam Rectal Exam: Deferred
--- NOTE | 2018-03-18 17:32 | CP.PCM.PN ---
Subjective - Date & Time of Evaluation Date of Evaluation: 03/18/18 Time of Evaluation: 17:32 - Subjective Subjective: PATIENT SEEN AND EXAMINED AT THE BEDSIDE PSYCH DR MARIE CLEAR THE PATIENT FOR DC DISCUSS WITH DR Maria Del Rosario PFEIFFER WHO AGREE TO DC Objective - Vital Signs/Intake and Output Vital Signs (last 24 hours): Temp Pulse Resp BP Pulse Ox 98.3 F 71 20 116/73 99 03/18/18 16:04 03/18/18 16:04 03/18/18 16:04 03/18/18 16:04 03/18/18 16:04 Intake and Output: 03/18/18 03/18/18 06:59 18:59 Output Total 500 Balance -500 - Medications Medications: Current Medications Aspirin (Aspirin Chewable) 81 mg PO DAILY [facility] Last Admin: 03/18/18 10:30 Dose: Not Given Cilostazol (Pletal) 100 mg PO BID [facility] Last Admin: 03/18/18 17:05 Dose: 100 mg Ferrous Gluconate (Fergon) 324 mg PO TID [facility] Last Admin: 03/18/18 17:05 Dose: 324 mg Meclizine HCl (Antivert) 25 mg PO Q8 [facility] Last Admin: 03/18/18 13:28 Dose: Not Given Pantoprazole Sodium (Protonix Ec Tab) 40 mg PO DAILY [facility] Last Admin: 03/18/18 11:00 Dose: Not Given Potassium Chloride (Klor-Con 10) 10 meq PO BRK [facility] Last Admin: 03/18/18 09:00 Dose: Not Given Risperidone (Risperdal Tab) 0.5 mg PO HS [facility] Last Admin: 03/17/18 21:37 Dose: 0.5 mg Rosuvastatin Calcium (Crestor) 5 mg PO HS [facility] Last Admin: 03/17/18 21:37 Dose: 5 mg Tamsulosin HCl (Flomax) 0.4 mg PO DAILY [facility] Last Admin: 03/18/18 10:30 Dose: Not Given Trazodone HCl (Desyrel) 50 mg PO HS PRN PRN Reason: Insomnia Vitamin B Complex/Vit C/Folic Acid (Nephro-Renay) 1 tab PO 0800 [facility] Last Admin: 03/18/18 08:00 Dose: Not Given - Labs Labs: 03/15/18 07:17 03/15/18 07:17 Assessment and Plan - Assessment and Plan (Free Text) Assessment: FOLLOW UP WITH DR Maria Del Rosario PFEIFFER IN ONE OR TWO WEEKS AT HIS OFFICE ----CALL FOR APPOINTMENT CONTINUE HOME MEDICATION NEW PRESCRIPTION GIVEN RISPERIDONE 0.5 MG PO AT HS PLETAL 100 MG PO BID TRAZADONE 50 MG PO AT HS PRN FOR INSOMNIA ACTIVITY TOLERATED patient has the capacity to make medical decisions and is cleared psychiatrically CALL DR Maria Del Rosario PFEIFFER OR GO TO THE EMERGENCY IF SYMPTOM RETURN OR WORSENING
[2018-03-19 07:58] VITALS: BP 110/73; PULSE 71; RESP 20; TEMP 98.5; O2SAT 100
[2018-03-19] MEDS: Multivitamin Vitamin B Complex (Nephro-Vite) Tab PO SCH (09:53)
[2018-03-19] MEDS: Potassium Chloride 10 mEq ER Tab PO SCH (09:53)
[2018-03-19] MEDS: Cilostazol 100 mg Tab UD PO SCH (09:53)
[2018-03-19] MEDS: Pantoprazole 40 mg EC Tab PO SCH (09:53)
== END 2018-03-19 10:24 | disposition home or self-care (01) | DRG 684 ==
LOC: C.ER 15:47 → C.9E 18:12 → C.5S 23:38 → OBSVTOIN 03-10 16:40
PROVIDERS: ADMIT Internal Medicine Nephrology; ATTEND Internal Medicine Nephrology
DX: N17.9 Acute kidney failure, unspecified (principal); I12.9 Hypertensive chronic kidney disease with stage 1 through stage 4 chronic kidney disease, or unspecified chronic kidney disease; R39.2 Extrarenal uremia; N18.3 Chronic kidney disease, stage 3 (moderate); E87.6 Hypokalemia; D64.9 Anemia, unspecified; N40.0 Benign prostatic hyperplasia without lower urinary tract symptoms; E78.00 Pure hypercholesterolemia, unspecified; F03.90 Unspecified dementia, unspecified severity, without behavioral disturbance, psychotic disturbance, mood disturbance, and anxiety; F29 Unspecified psychosis not due to a substance or known physiological condition; Z59.0 Homelessness

== ENCOUNTER 2018-03-19 13:26 | Emergency (ER) | payer MEDICARE ==
[2018-03-19 13:40] VITALS: BP 150/64; PULSE 69; RESP 20; TEMP 97.4; O2SAT 98
--- NOTE | 2018-03-19 15:45 | C.PDOC ---
History Of Present Illness 62-year-old homeless male brought in by EMS for complaints of chronic right leg pain. Patient states he is looking for a place to sleep, requesting a bed. Of note patient was recently admitted here and discharged home yesterday. Records demonstrate patient was given prescriptions for trazodone, risperdal, and pletal, not filled yet. Time Seen by Provider: 03/19/18 14:35 Chief Complaint (Nursing): Weakness/Neurological Deficit History Per: Patient History/Exam Limitations: no limitations Onset/Duration Of Symptoms: Days Current Symptoms Are (Timing): Still Present Past Medical History Reviewed: Historical Data, Nursing Documentation, Vital Signs Vital Signs: Last Vital Signs Temp 97.4 F L 03/19/18 13:36 Pulse 69 03/19/18 13:36 Resp 20 03/19/18 13:36 BP 150/64 03/19/18 13:36 Pulse Ox 98 03/19/18 13:36 - Medical History PMH: Arthritis, Dementia, HTN, Hypercholesterolemia Family History: States: Unknown Family Hx - Social History Hx Alcohol Use: No Hx Substance Use: No - Immunization History Hx Tetanus Toxoid Vaccination: No Review Of Systems Except As Marked, All Systems Reviewed And Found Negative. Constitutional: Negative for: Fever, Chills Cardiovascular: Negative for: Chest Pain Respiratory: Negative for: Shortness of Breath Gastrointestinal: Negative for: Nausea, Vomiting Musculoskeletal: Positive for: Leg Pain (right leg pain) Skin: Negative for: Rash, Lesions Neurological: Negative for: Weakness, Numbness, Incoordination Physical Exam - Physical Exam Appears: Non-toxic, No Acute Distress Skin: Normal Color, Warm, Dry Head: Atraumatic, Normacephalic Eye(s): bilateral: Normal Inspection Neck: Normal ROM Chest: Symmetrical Cardiovascular: Rhythm Regular Respiratory: Normal Breath Sounds, No Accessory Muscle Use Gastrointestinal/Abdominal: Soft, No Tenderness, No Distention Extremity: Tenderness (pain to right leg w/ movement of the hip and on flexion, No point tenderness), Capillary Refill (less than 2 sec), No Swelling, Other (Leg is not warm, with no erythema or skin changes) Pulses: Left Dorsalis Pedis: Normal, Right Dorsalis Pedis: Normal Neurological/Psych: Oriented x3, Normal Speech, Normal Motor, Normal Sensation ED Course And Treatment O2 Sat by Pulse Oximetry: 98 (RA) Pulse Ox Interpretation: Normal - CT Scan/US right hip and pelvis Other Rad Studies (CT/US): Interpreted By Me CT/US Interpretation: severe arthritis right hip and pelvis Medical Decision Making Medical Decision Making: Given toradol IM. X-rays taken. X-rays are consistent with severe osteoarthritis. Records reviewed: After multiple attempts at admission, patient was finally admitted for renal insufficiency and was rehydrated, stayed in the hospital for a few days, and was discharged yesterday. Patient reports having similar leg pain in the past. No new pain or other injuries/complaints. Disposition Counseled Patient/Family Regarding: Studies Performed, Diagnosis, Need For Followup, Rx Given - Disposition Referrals: [facility] [Outside] Disposition: HOME/ ROUTINE Disposition Time: 15:50 Condition: STABLE Prescriptions: Prednisone 50 mg PO DAILY #7 tablet Instructions: Osteoarthritis (DC) Forms: [employer] (Malaysian) - Clinical Impression Clinical Impression: Arthritis of right hip - Scribe Statement The provider has reviewed the documentation as recorded by the Scribe (Mariluz Beltran) Provider Attestation: All medical record entries made by the Scribe were at my direction and personally dictated by me. I have reviewed the chart and agree that the record accurately reflects my personal performance of the history, physical exam, medical decision making, and the department course for this patient. I have also personally directed, reviewed, and agree with the discharge instructions and disposition.
--- NOTE | 2018-03-19 16:08 | RAD ---
Date of service: 03/19/2018 PROCEDURE: Pelvis and right hip HISTORY: Pain. No history of recent/ related trauma provided COMPARISON: None TECHNIQUE: Standard protocol for this study/examination. FINDINGS: Severe degenerative changes right hip including narrowing of the disc space, subchondral sclerosis and cyst formation. No visible radiographic evidence of avascular necrosis. IMPRESSION: Severe degenerative changes right hip. No acute findings
== END 2018-03-19 15:57 | disposition home or self-care (01) ==
LOC: C.ER 13:26
DX: M13.851 Other specified arthritis, right hip (principal)
CPT/HCPCS: 73502; 96372; 99285; J1885

== ENCOUNTER 2018-04-12 13:32 | Emergency (ER) | payer MEDICARE ==
[2018-04-12 13:33] VITALS: BMI 29.8
[2018-04-12 13:56] VITALS: BP 148/82; PULSE 88; RESP 16; TEMP 98.1; O2SAT 99
--- NOTE | 2018-04-12 14:57 | C.PDOC ---
History Of Present Illness 62 year old male with history of dementia and poor insight presents to ED for evaluation of chronic leg pain. Patient also asked for a sandwich and wants a place to stay. Patient is a local alcoholic. This is his 9th visit this month with vague complaints. Denies fever, chills, chest pain, shortness of breath, N/V/D, weakness, numbness. Time Seen by Provider: 04/12/18 14:48 Chief Complaint (Nursing): Lower Extremity Problem/Injury History Per: Patient History/Exam Limitations: no limitations Onset/Duration Of Symptoms: Days Current Symptoms Are (Timing): Still Present Past Medical History Reviewed: Historical Data, Nursing Documentation, Vital Signs Vital Signs: Last Vital Signs Temp 98.1 F 04/12/18 13:54 Pulse 88 04/12/18 13:54 Resp 16 04/12/18 13:54 BP 148/82 04/12/18 13:54 Pulse Ox 99 04/12/18 13:54 - Medical History PMH: Anxiety, Arthritis, Bipolar Disorder, Dementia, HTN, Hypercholesterolemia Surgical History: No Surg Hx Family History: States: No Known Family Hx - Social History Hx Alcohol Use: No Hx Substance Use: No - Immunization History Hx Tetanus Toxoid Vaccination: No Hx Influenza Vaccination: No Hx Pneumococcal Vaccination: No Review Of Systems Except As Marked, All Systems Reviewed And Found Negative. Constitutional: Negative for: Fever, Chills Cardiovascular: Negative for: Chest Pain Respiratory: Negative for: Cough, Shortness of Breath Gastrointestinal: Negative for: Nausea, Vomiting Musculoskeletal: Positive for: Leg Pain Neurological: Negative for: Weakness, Numbness Physical Exam - Physical Exam Appears: Non-toxic, No Acute Distress, Confused, Other (Argumentative) Skin: Warm, Dry Head: Atraumatic, Normacephalic Eye(s): bilateral: PERRL, EOMI Oral Mucosa: Moist Neck: Supple Chest: Symmetrical, No Deformity Cardiovascular: Rhythm Regular, No Murmur Respiratory: Normal Breath Sounds, No Rales, No Rhonchi, No Wheezing Gastrointestinal/Abdominal: Soft, No Tenderness Extremity: Other (No edema to lower extremities. ) Neurological/Psych: Oriented x3 ED Course And Treatment O2 Sat by Pulse Oximetry: 99 (RA) Pulse Ox Interpretation: Normal Medical Decision Making Medical Decision Making: no acute complaint no new findings well known local demented, bipolar, homeless seeks food/correction re-directed to local correction, though with poor insight. Escorted from ED by Security Disposition Doctor Will See Patient In The: Office Counseled Patient/Family Regarding: Studies Performed, Diagnosis - Disposition Referrals: [facility] [Outside] [place] [facility] [Outside] [facility] [Outside] [facility] [Outside] Disposition: HOME/ ROUTINE Disposition Time: 14:56 Condition: GOOD Additional Instructions: please seek nightly correction placement motrin 400 mg every 6 hours as needed for your chronic hip discomforts. Instructions: Chronic Pain Forms: [employer] (Puerto Rican) - Clinical Impression Clinical Impression: Chronic pain of right hip, Malingering, Homeless single person, Chronic pain - Scribe Statement The provider has reviewed the documentation as recorded by the Howie Madrigaled Provider Attestation: All medical record entries made by the Howie were at my direction and personally dictated by me. I have reviewed the chart and agree that the record accurately reflects my personal performance of the history, physical exam, medical decision making, and the department course for this patient. I have also personally directed, reviewed, and agree with the discharge instructions and disposition.
== END 2018-04-12 15:13 | disposition home or self-care (01) ==
LOC: C.ER 13:32
DX: G89.29 Other chronic pain (principal); M25.551 Pain in right hip; Z76.5 Malingerer [conscious simulation]; Z59.0 Homelessness

== ENCOUNTER 2018-04-16 12:29 | Emergency (ER) | payer MEDICARE ==
[2018-04-16 12:29] VITALS: BMI 29.8
[2018-04-16 12:50] VITALS: BP 112/76; PULSE 67; RESP 16; TEMP 97.7; O2SAT 100
--- NOTE | 2018-04-16 12:56 | C.PDOC ---
History Of Present Illness 62 y/o male,w/PMhx of HTN, presents to the ER complaining of chronic hip pain. Patient has multiple prior evaluations for same complaint in [facility], he was found to have arthritis. Patient reports that he is non-compliant with his medications. He states that he is homeless and he would like a place to stay.Denies having weakness and numbness. Time Seen by Provider: 04/16/18 12:53 Chief Complaint (Nursing): Lower Extremity Problem/Injury History Per: Patient History/Exam Limitations: no limitations Onset/Duration Of Symptoms: Days Current Symptoms Are (Timing): Still Present Severity: Moderate Past Medical History Reviewed: Historical Data, Nursing Documentation, Vital Signs Vital Signs: Last Vital Signs Temp 97.7 F 04/16/18 12:46 Pulse 67 04/16/18 12:46 Resp 16 04/16/18 12:46 BP 112/76 04/16/18 12:46 Pulse Ox 100 04/16/18 12:46 - Medical History PMH: Anxiety, Arthritis, Bipolar Disorder, Dementia, HTN, Hypercholesterolemia Denies: Diabetes, Hepatitis, HIV, Seizures, Sexually Transmitted Disease Other Surgeries: Hx of surgeries Family History: States: No Known Family Hx - Social History Hx Alcohol Use: No Hx Substance Use: No - Immunization History Hx Tetanus Toxoid Vaccination: No Hx Influenza Vaccination: No Hx Pneumococcal Vaccination: No Review Of Systems Except As Marked, All Systems Reviewed And Found Negative. Constitutional: Negative for: Fever, Chills Musculoskeletal: Positive for: Other (hip pain) Neurological: Negative for: Weakness, Numbness Physical Exam - Physical Exam Appears: Other (elderly male, arugmentative with staff) Skin: Normal Color, Warm, Dry Head: Atraumatic, Normacephalic Eye(s): bilateral: Normal Inspection Nose: Normal Oral Mucosa: Moist Neck: Supple Chest: Symmetrical Cardiovascular: Rhythm Regular Respiratory: Normal Breath Sounds, No Rales, No Rhonchi, No Wheezing Gastrointestinal/Abdominal: Normal Exam, Soft, No Tenderness, No Guarding, No Rebound Extremity: Normal ROM, No Tenderness, No Swelling Neurological/Psych: Oriented x3, Normal Speech Gait: Steady ED Course And Treatment O2 Sat by Pulse Oximetry: 100 (RA) Pulse Ox Interpretation: Normal Medical Decision Making Medical Decision [facility] ED visit in March 2018 Usually about this time of the day no acute issues poor insight stable gait at baseline Extensive prior eval of leg/hip pains As usual, requires escort from ED by Security Disposition Doctor Will See Patient In The: Office Counseled Patient/Family Regarding: Studies Performed, Diagnosis - Disposition Referrals: [facility] [Outside] [facility] [Outside] [facility] [Outside] [facility] [Outside] Disposition: HOME/ ROUTINE Disposition Time: 12:56 Condition: GOOD Additional Instructions: seek nightly fpc placement motrin 400-600 mg every 6 hours as needed for hip pain outpatient follow-up in our [facility]- free. Instructions: Chronic Pain, Hip Pain Forms: [email or web address] (Polish) - Clinical Impression Clinical Impression: Chronic pain of right hip, Homeless - Scribe Statement The provider has reviewed the documentation as recorded by the Howie Rios Provider Attestation: All medical record entries made by the Howie were at my direction and personally dictated by me. I have reviewed the chart and agree that the record accurately reflects my personal performance of the history, physical exam, medical decision making, and the department course for this patient. I have also personally directed, reviewed, and agree with the discharge instructions and disposition.
== END 2018-04-16 13:06 | disposition home or self-care (01) ==
LOC: C.ER 12:29
DX: G89.29 Other chronic pain (principal); M25.551 Pain in right hip; Z59.0 Homelessness

== ENCOUNTER 2018-04-23 10:54 | Emergency (ER) | payer MEDICARE ==
[2018-04-23 10:55] VITALS: BMI 23.7
[2018-04-23 11:10] VITALS: RESP 18
--- NOTE | 2018-04-23 12:14 | C.PDOC ---
History Of Present Illness 62 year old male presents to the ED stating "I need help." Patient is well-known to the ED, multiple prior visits for chronic malingering and homelessness. Patient is s/p visit for abdominal pain and homelessness on 03/3018. He denies any new injuries or acute complaints. MDM MALINGERING, SAME COMPLAINTS PRIOR VISITS. NO NEW FINDINGS. History Per: Patient History/Exam Limitations: no limitations Past Medical History Vital Signs: Last Vital Signs Temp 98.3 F 04/23/18 11:10 Pulse 71 04/23/18 11:10 Resp 18 04/23/18 11:10 BP 91/56 L 04/23/18 11:10 Pulse Ox 98 04/23/18 11:10 - Medical History PMH: Anxiety, Arthritis, Bipolar Disorder, Dementia, HTN, Hypercholesterolemia Denies: Diabetes, Hepatitis, HIV, Seizures, Sexually Transmitted Disease Family History: States: Unknown Family Hx - Social History Hx Alcohol Use: No Hx Substance Use: No - Immunization History Hx Tetanus Toxoid Vaccination: No Hx Influenza Vaccination: No Hx Pneumococcal Vaccination: No Review Of Systems Except As Marked, All Systems Reviewed And Found Negative. Constitutional: Negative for: Fever Cardiovascular: Negative for: Chest Pain Respiratory: Negative for: Shortness of Breath Gastrointestinal: Negative for: Nausea, Vomiting Psych: Negative for: Suicidal ideation Physical Exam - Physical Exam Appears: Non-toxic, Other (unkempt.) Skin: Warm, Dry Head: Atraumatic, Normacephalic Eye(s): bilateral: Normal Inspection Neck: Normal ROM Chest: Symmetrical Respiratory: No Accessory Muscle Use, Other (NARD) Extremity: Normal ROM (full AROM without difficulty.) Extremity: Bilateral: Atraumatic, Normal Color And Temperature Pulses: Left Radial: Normal, Right Radial: Normal Neurological/Psych: Oriented x3, Normal Speech, Other (neurologically intact, appears calm, cooperative. ) ED Course And Treatment O2 Sat by Pulse Oximetry: 98 (RA) Pulse Ox Interpretation: Normal Medical Decision Making Medical Decision Making: Progress/Update: Malingering, same complaints as prior visits. No new findings. Patient is stable for discharge home. Disposition Counseled Patient/Family Regarding: Diagnosis, Need For Followup - Disposition Referrals: [facility] [Outside] [facility] [Outside] Disposition: HOME/ ROUTINE Disposition Time: 12:13 Condition: GOOD Instructions: Chronic Pain (DC) Forms: General Discharge Instructions - Clinical Impression Clinical Impression: Homeless, Malingering, Chronic pain - Scribe Statement The provider has reviewed the documentation as recorded by the Scribe (Katharine Crow) Provider Attestation: All medical record entries made by the Scribe were at my direction and personally dictated by me. I have reviewed the chart and agree that the record accurately reflects my personal performance of the history, physical exam, medical decision making, and the department course for this patient. I have also personally directed, reviewed, and agree with the discharge instructions and disposition.
[2018-04-23 13:11] VITALS: BP 99/69; PULSE 82; TEMP 98.5
[2018-04-23 13:56] VITALS: O2SAT 98
== END 2018-04-23 13:15 | disposition home or self-care (01) ==
LOC: C.ER 10:54
DX: Z76.5 Malingerer [conscious simulation] (principal); G89.29 Other chronic pain; Z59.0 Homelessness

== ENCOUNTER 2018-04-26 08:15 | Emergency (ER) | payer MEDICARE ==
[2018-04-26 08:19] VITALS: BMI 25.7
[2018-04-26 08:21] VITALS: BP 130/80; PULSE 88; RESP 18; TEMP 97.8; O2SAT 100
--- NOTE | 2018-04-26 08:40 | C.PDOC ---
History Of Present Illness Pt is a 62 year old homeless male with multiple ER visits (discharged from [facility] ED at 5:20 AM today) and PMHx of enlarged prostate, Arthritis, Bipolar Disorder, Dementia, HTN, and Hypercholesterolemia, is BIBA for complaints of r ight thigh pain that began a year ago. Patient states "the pain in my leg makes me dizzy." Patient also reports falling 3 times today because of difficulty walking due to pain but only site of pain is right thigh. Patient also states pain worsens with walking. Denies injuries, LOC, trauma, smoking, substance abuse, Hx of diabetes or asthma, or any other physical complaints. Patient is on medication for HTN, bipolar d/o and Hypercholesterolemia. Patient was discharged last night at 11 pm from this ER and was discharged this morning at 5am from [facility]. Pt's complaints today are consistent with his other ED visits. Pt denies use of alcohol, drugs or tobacco. PMD: Doesn't know the name but states he's in [place]. / Time Seen by Provider: 04/26/18 08:31 Chief Complaint (Nursing): Medical Clearance History Per: Patient History/Exam Limitations: no limitations Onset/Duration Of Symptoms: Hrs Current Symptoms Are (Timing): Still Present Recent travel outside of the [facility]: No Past Medical History Reviewed: Historical Data, Nursing Documentation, Vital Signs Vital Signs: Last Vital Signs Temp 97.8 F 04/26/18 08:20 Pulse 88 04/26/18 08:20 Resp 18 04/26/18 08:20 BP 130/80 04/26/18 08:20 Pulse Ox 100 04/26/18 08:20 - Medical History PMH: Anxiety, Arthritis, Bipolar Disorder, Dementia, HTN, Hypercholesterolemia Family History: States: Unknown Family Hx - Social History Hx Tobacco Use: No Hx Alcohol Use: No Hx Substance Use: No - Immunization History Hx Tetanus Toxoid Vaccination: No Hx Influenza Vaccination: No Hx Pneumococcal Vaccination: No Review Of Systems Except As Marked, All Systems Reviewed And Found Negative. Constitutional: Negative for: Fever, Chills Gastrointestinal: Negative for: Nausea, Vomiting, Diarrhea Musculoskeletal: Positive for: Other (Right thigh pain ) Skin: Negative for: Rash Neurological: Positive for: Dizziness. Negative for: Weakness, Numbness Physical Exam - Physical Exam Appears: Non-toxic, No Acute Distress, Unkempt Skin: Normal Color, Warm, Dry, No Rash Head: Atraumatic Eye(s): bilateral: Normal Inspection, EOMI Ear(s): Bilateral: Normal Nose: Normal Oral Mucosa: Moist Tongue: Normal Appearing Lips: Normal Appearing Gingiva: Normal Appearing Throat: Normal Neck: Normal ROM, Supple Lymphatic: Deferred Chest: Symmetrical, No Tenderness Cardiovascular: Rhythm Regular, No Murmur Respiratory: Normal Breath Sounds, No Rales, No Rhonchi, No Wheezing Gastrointestinal/Abdominal: Bowel Sounds (Active ), Soft, No Tenderness Rectal: Deferred Extremity: Normal ROM, No Tenderness (To right leg pain area, no erythema or rash. ), No Deformity Extremity: Bilateral: Atraumatic, Normal Color And Temperature, Normal ROM Pulses: Left Radial: Normal, Right Radial: Normal Neurological/Psych: Oriented x3, Normal Speech, Normal Motor, Normal Sensation, Normal Reflexes Gait: Steady ED Course And Treatment - Laboratory Results Result Diagrams: 04/26/18 09:10 04/26/18 09:10 O2 Sat by Pulse Oximetry: 100 (RA) Pulse Ox Interpretation: Normal Medical Decision Making Medical Decision Making: Initial Impression: Chronic right leg pain--likely arthritis (no evidence of cellulitis or DVT; right thigh is nontender to palpation) Dizziness Initial Plan: Will check labs given complaint of dizziness Disposition Counseled Patient/Family Regarding: Studies Performed, Diagnosis, Need For Followup, Rx Given - Disposition Referrals: [facility] at [facility] [Outside] Disposition: HOME/ ROUTINE Disposition Time: 13:35 Condition: STABLE Additional Instructions: Mr. Chew, thank you for letting us take care of you today. Return to the ER if your symptoms worsen, or if any problems. It is important for you to follow up with the doctor. Please call the phone number listed below to make an appointment at our [facility]. [facility] evaluate your [facility]. Take the medication listed below as prescribed for pain relief. Prescriptions: Ibuprofen [Motrin] 1 tab PO Q8 PRN #20 tab PRN Reason: Pain, Moderate (4-7) Instructions: Osteoarthritis (DC) Forms: [facility] (Angolan) Print Language: MONTENEGRIN - POA Present On Arrival: None - Clinical Impression Clinical Impression: Arthritis of right leg, Anemia - Scribe Statement The provider has reviewed the documentation as recorded by the Nellyibjayla Doaln All medical record entries made by the Scribe were at my direction and personally dictated by me. I have reviewed the chart and agree that the record accurately reflects my personal performance of the history, physical exam, medical decision making, and the department course for this patient. I have also personally directed, reviewed, and agree with the discharge instructions and disposition.
[2018-04-26 09:17] LABS: BASO % 0.5 % (0.0-2.0); EOS # 0.3 K/uL (0.0-0.7); EOS % 7.3 % (0.0-4.0); HEMOGLOBIN 9.8 g/dL (12.0-18.0); LYMPH # 1.5 K/uL (1.0-4.3); LYMPH % 40.2 % (20.0-40.0); MEAN CELL VOLUME 85.7 fL (80.0-94.0); MEAN CORPUSCULAR HEMOGLOBIN 28.7 pg (27.0-31.0); MEAN CORPUSCULAR HGB CONC 33.5 g/dL (33.0-37.0); MEAN PLATELET VOLUME 6.8 fL (7.2-11.7); MONO # 0.4 K/uL (0.0-0.8); MONO % 11.2 % (0.0-10.0); NEUT # 1.5 K/uL (1.8-7.0); NEUT % 40.8 % (50.0-75.0); RBC 3.43 Mil/uL (4.40-5.90); RED CELL DISTRIBUTION WIDTH 15.5 % (11.5-14.5); WHITE BLOOD COUNT 3.8 K/uL (4.8-10.8)
[2018-04-26 09:29] LABS: ALB/GLOB RATIO 1.1 (1.0-2.1); ALBUMIN 3.4 g/dL (3.5-5.0); ALT/SGPT 22 U/L (21-72); AST/SGOT 19 U/L (17-59); BLOOD UREA NITROGEN 13 mg/dL (9-20); CALCIUM 8.7 mg/dl (8.6-10.4); GFR NON-AFRICAN AMERICAN 51
[2018-04-26] MEDS ORDERED: Potassium Chloride 20 mEq/15 ml LIQ UD PO STA (09:32)
[2018-04-26] MEDS ORDERED: Potassium Chloride 20 mEq ER Tab PO ONE (09:42)
[2018-04-26] MEDS ORDERED: Potassium Chloride 20 mEq ER Tab PO STA (09:44)
[2018-04-26 12:25] LABS: URINE BACTERIA RARE (<OCC); URINE BILIRUBIN NEGATIVE (NEGATIVE); URINE BLOOD 1+ (NEGATIVE); URINE CLARITY Clear (Clear); URINE COLOR Yellow (YELLOW); URINE GLUCOSE (UA) NORMAL (Normal); URINE LEUKOCYTE ESTERASE NEG Leu/uL (Negative); URINE PROTEIN NEGATIVE (NEGATIVE)
[2018-04-26 12:45] LABS: BARBITURATES, UR NEGATIVE (NEGATIVE); BENZODIAZEPINES, UR NEGATIVE (NEGATIVE); OPIATES, UR NEGATIVE (NEGATIVE); PHENCYCLIDINE, UR NEGATIVE (NEGATIVE)
== END 2018-04-26 13:59 | disposition home or self-care (01) ==
LOC: C.ER 08:15
DX: M13.88 Other specified arthritis, other site (principal); D64.9 Anemia, unspecified; I10 Essential (primary) hypertension; E78.00 Pure hypercholesterolemia, unspecified; Z87.891 Personal history of nicotine dependence; Z59.0 Homelessness
CPT/HCPCS: 80053; 81001; 83735; 84100; 85025; 99283; G0480

== ENCOUNTER 2018-05-09 20:07 | Emergency (ER) | payer MEDICARE ==
[2018-05-09 20:07] VITALS: BMI 27.3
[2018-05-09 20:12] VITALS: BP 136/79; PULSE 78; RESP 18; TEMP 98; O2SAT 98
--- NOTE | 2018-05-09 20:23 | C.PDOC ---
History Of Present Illness 62 year old male is brought to the ED by EMS requesting for a place to spend the night. Patient has a variety of vague complaints. Patient has multiple prior visits to the ED for similar presentation. Patient has chronic hip pain right more than left that he has had examined extensively prior visits. Patient denies SI/HI, hallucinations, CP, SOB, trauma, injury, fall. Chief Complaint (Nursing): Medical Clearance History Per: Patient, EMS History/Exam Limitations: no limitations Onset/Duration Of Symptoms: Days Current Symptoms Are (Timing): Still Present Recent travel outside of the [place]: No Additional History Per: Patient Past Medical History Reviewed: Historical Data, Nursing Documentation, Vital Signs Vital Signs: Last Vital Signs Temp 98 F 05/09/18 20:10 Pulse 78 05/09/18 20:10 Resp 18 05/09/18 20:10 BP 136/79 05/09/18 20:10 Pulse Ox 98 05/09/18 20:10 - Medical History PMH: Anxiety, Arthritis, Benign Prostatic Hyperplasia, Bipolar Disorder, Dementia, HTN, Hypercholesterolemia Denies: Diabetes, Hepatitis, HIV, Chronic Kidney Disease, Seizures, Sexually Transmitted Disease Surgical History: No Surg Hx Family History: States: Unknown Family Hx - Social History Hx Tobacco Use: No Hx Alcohol Use: No (Former) Hx Substance Use: No - Immunization History Hx Tetanus Toxoid Vaccination: No Hx Influenza Vaccination: No Hx Pneumococcal Vaccination: No Review Of Systems Constitutional: Negative for: Fever, Chills Eyes: Negative for: Vision Change Cardiovascular: Negative for: Chest Pain Respiratory: Negative for: Shortness of Breath Gastrointestinal: Negative for: Nausea, Vomiting, Abdominal Pain Musculoskeletal: Negative for: Back Pain Skin: Negative for: Rash Psych: Negative for: Depression, Suicidal ideation Physical Exam - Physical Exam Appears: Non-toxic, No Acute Distress Skin: Normal Color, Warm, Dry Head: Atraumatic, Normacephalic Eye(s): bilateral: Normal Inspection Neck: Normal ROM, Supple Chest: Symmetrical Cardiovascular: Rhythm Regular Respiratory: Normal Breath Sounds, No Rales, No Rhonchi, No Wheezing Gastrointestinal/Abdominal: Soft, No Tenderness, No Guarding, No Rebound Extremity: Normal ROM, No Tenderness, No Swelling Neurological/Psych: Oriented x3, Normal Speech, Normal Cognition Gait: Steady ED Course And Treatment O2 Sat by Pulse Oximetry: 98 (ON RA) Pulse Ox Interpretation: Normal Medical Decision Making Medical Decision Making: no acute issue chronic R>L hip discomfort, stable baseline gait no etoh patient is ambulating freely at baseline though the ED. patient is well known to the ED with many prior evaluation. Disposition Doctor Will See Patient In The: Office Counseled Patient/Family Regarding: Studies Performed, Diagnosis - Disposition Disposition: HOME/ ROUTINE Disposition Time: 20:23 Condition: GOOD Forms: [employer] (Libyan) - Clinical Impression Clinical Impression: Malingering, Chronic leg pain - Scribe Statement The provider has reviewed the documentation as recorded by the Scribe Darrion Valencia All medical record entries made by the Scribe were at my direction and personally dictated by me. I have reviewed the chart and agree that the record accurately reflects my personal performance of the history, physical exam, medical decision making, and the department course for this patient. I have also personally directed, reviewed, and agree with the discharge instructions and disposition.
== END 2018-05-09 20:29 | disposition home or self-care (01) ==
LOC: C.ER 20:07
DX: Z76.5 Malingerer [conscious simulation] (principal); M79.606 Pain in leg, unspecified; G89.29 Other chronic pain

== ENCOUNTER 2018-05-09 21:17 | Emergency (ER) | payer MEDICARE ==
[2018-05-09 21:17] VITALS: BMI 27.3
[2018-05-09 21:22] VITALS: BP 142/81; PULSE 89; RESP 16; TEMP 97.8; O2SAT 97
--- NOTE | 2018-05-09 21:30 | C.PDOC ---
History Of Present Illness 62 year old male is brought to the ED by EMS for the second time today. Patient was seen in the ED previously today for vague complaints. Patient was seen ambulating without difficulty prior to D/C. Patient was sitting at the bus stop when bystander called Police and EMS brought patient to the ED. Patient never left 200 FT from ED radius. Patient reports again he wants a place to stay the night. Time Seen by Provider: 05/09/18 21:19 Chief Complaint (Nursing): Medical Clearance History Per: Patient, EMS History/Exam Limitations: intoxication Onset/Duration Of Symptoms: Mins Current Symptoms Are (Timing): Gone Severity: None Reports Recently: Seen In ED (05/09/18) Recent travel outside of the [place]: No Additional History Per: Patient Past Medical History Reviewed: Historical Data, Nursing Documentation, Vital Signs Vital Signs: Last Vital Signs Temp 97.8 F 05/09/18 21:19 Pulse 89 05/09/18 21:19 Resp 16 05/09/18 21:19 BP 142/81 05/09/18 21:19 Pulse Ox 97 05/09/18 21:19 - Medical History PMH: Anxiety, Arthritis, Benign Prostatic Hyperplasia, Bipolar Disorder, Dementia, HTN, Hypercholesterolemia Denies: Diabetes, Hepatitis, HIV, Chronic Kidney Disease, Seizures, Sexually Transmitted Disease Surgical History: No Surg Hx Family History: States: Unknown Family Hx - Social History Hx Tobacco Use: No Hx Alcohol Use: No (Former) Hx Substance Use: No - Immunization History Hx Tetanus Toxoid Vaccination: No Hx Influenza Vaccination: No Hx Pneumococcal Vaccination: No Review Of Systems Constitutional: Negative for: Fever, Chills Eyes: Negative for: Vision Change Cardiovascular: Negative for: Chest Pain, Palpitations Respiratory: Negative for: Cough, Shortness of Breath Gastrointestinal: Negative for: Nausea, Vomiting, Abdominal Pain Skin: Negative for: Rash Neurological: Negative for: Weakness, Numbness Psych: Negative for: Depression, Suicidal ideation Physical Exam - Physical Exam Appears: Non-toxic, No Acute Distress Skin: Normal Color, Warm, Dry Head: Atraumatic, Normacephalic Eye(s): bilateral: Normal Inspection Neck: Normal ROM, Supple Chest: Symmetrical Cardiovascular: Rhythm Regular Respiratory: Normal Breath Sounds, No Rales, No Rhonchi, No Wheezing Gastrointestinal/Abdominal: Soft, No Tenderness, No Guarding, No Rebound Extremity: Normal ROM, No Tenderness, No Swelling Neurological/Psych: Oriented x3, Normal Speech, Normal Cognition Gait: Steady ED Course And Treatment O2 Sat by Pulse Oximetry: 97 (ON RA) Pulse Ox Interpretation: Normal Medical Decision Making Medical Decision Making: returned to ED from bus stop in front of ED Again, no acute issues has places to go and family/friends who can pick him up. Disposition Doctor Will See Patient In The: Office Counseled Patient/Family Regarding: Studies Performed, Diagnosis - Disposition Referrals: [facility] [Outside] [facility] [Outside] [facility] [Outside] [facility] [Outside] [facility] [Outside] Disposition: HOME/ ROUTINE Disposition Time: 21:30 Condition: GOOD Additional Instructions: seek nightly senior care placement seek outpatient psych services Instructions: Chronic Pain (DC) Forms: [facility] (Luxembourgish) - Clinical Impression Clinical Impression: Homeless single person, Chronic pain of right hip - Scribe Statement The provider has reviewed the documentation as recorded by the Scribjayla Valencia All medical record entries made by the Nellyibjayla were at my direction and personally dictated by me. I have reviewed the chart and agree that the record accurately reflects my personal performance of the history, physical exam, medical decision making, and the department course for this patient. I have also personally directed, reviewed, and agree with the discharge instructions and disposition.
== END 2018-05-09 21:45 | disposition home or self-care (01) ==
LOC: C.ER 21:17
DX: M25.551 Pain in right hip (principal); G89.29 Other chronic pain; Z59.0 Homelessness

== ENCOUNTER 2018-05-10 05:26 | Emergency (ER) | payer MEDICARE ==
[2018-05-10 05:27] VITALS: BMI 27.3
[2018-05-10 05:33] VITALS: BP 153/88; PULSE 77; RESP 16; TEMP 97.8; O2SAT 100
--- NOTE | 2018-05-10 06:04 | C.PDOC ---
History Of Present Illness 62 year old male is brought to the ED by EMS looking for a place to stay and c/o chronic right leg pain. Patient was seen twice earlier today for same, patient returns again requesting to sleep. Patient denies SI/HI, hallucinations, injury, fall, trauma, weakness, numbness. Time Seen by Provider: 05/10/18 05:34 Chief Complaint (Nursing): Medical Clearance History Per: Patient, EMS History/Exam Limitations: no limitations Onset/Duration Of Symptoms: Hrs Current Symptoms Are (Timing): Still Present Reports Recently: Seen In ED (05/09/18 twice) Recent travel outside of the [place]: No Additional History Per: Patient Past Medical History Reviewed: Historical Data, Nursing Documentation, Vital Signs Vital Signs: Last Vital Signs Temp 97.8 F 05/10/18 05:28 Pulse 77 05/10/18 05:28 Resp 16 05/10/18 05:28 BP 153/88 H 05/10/18 05:28 Pulse Ox 100 05/10/18 05:28 - Medical History PMH: Anxiety, Arthritis, Benign Prostatic Hyperplasia, Bipolar Disorder, Dementia, HTN, Hypercholesterolemia Denies: Diabetes, Hepatitis, HIV, Chronic Kidney Disease, Seizures, Sexually Transmitted Disease Surgical History: No Surg Hx Family History: States: Unknown Family Hx - Social History Hx Tobacco Use: No Hx Alcohol Use: No (Former) Hx Substance Use: No - Immunization History Hx Tetanus Toxoid Vaccination: No Hx Influenza Vaccination: No Hx Pneumococcal Vaccination: No Review Of Systems Constitutional: Negative for: Fever, Chills Cardiovascular: Negative for: Chest Pain Respiratory: Negative for: Cough, Shortness of Breath Gastrointestinal: Negative for: Nausea, Vomiting, Abdominal Pain Musculoskeletal: Positive for: Leg Pain Skin: Negative for: Rash Neurological: Negative for: Weakness, Numbness Psych: Negative for: Depression, Suicidal ideation Physical Exam - Physical Exam Appears: Non-toxic, No Acute Distress Skin: Normal Color, Warm, Dry Head: Atraumatic, Normacephalic Eye(s): bilateral: Normal Inspection Neck: Normal ROM, Supple Chest: Symmetrical Cardiovascular: Rhythm Regular Respiratory: Normal Breath Sounds, No Rales, No Rhonchi, No Wheezing Extremity: Normal ROM, No Tenderness, No Swelling Neurological/Psych: Oriented x3, Normal Speech, Normal Cognition Gait: Steady ED Course And Treatment O2 Sat by Pulse Oximetry: 100 (ON RA) Pulse Ox Interpretation: Normal Progress Note: Patient was seen twice tonight for same presentation. Patient was D/C after ambulating in the ED without difficulty. Disposition - Disposition Disposition: HOME/ ROUTINE Disposition Time: 06:30 Condition: STABLE Additional Instructions: Please seek [facility] Follow up in clinic Return to ER if worse Forms: [facility] (Slovenian) - Clinical Impression Clinical Impression: Medical assessment, Chronic pain - PA / CLERGY MEMBER / Resident Statement MD/DO has reviewed & agrees with the documentation as recorded. - Scribe Statement The provider has reviewed the documentation as recorded by the Scribe Darrion Valencia All medical record entries made by the Howie were at my direction and personally dictated by me. I have reviewed the chart and agree that the record accurately reflects my personal performance of the history, physical exam, medical decision making, and the department course for this patient. I have also personally directed, reviewed, and agree with the discharge instructions and disposition.
== END 2018-05-10 06:20 | disposition home or self-care (01) ==
LOC: C.ER 05:26
DX: G89.29 Other chronic pain (principal)

== ENCOUNTER 2018-05-10 08:52 | Emergency (ER) | payer MEDICARE ==
[2018-05-10 08:53] VITALS: BMI 27.3
[2018-05-10 09:12] VITALS: O2SAT 100
--- NOTE | 2018-05-10 12:12 | C.PDOC ---
History Of Present Illness 62 years old male is homeless and he presents to ED stating "I came here to relax." Patient states his right leg was hurting but it is chronic. Denies any other complaints or injuries. Time Seen by Provider: 05/10/18 12:00 Chief Complaint (Nursing): Medical Clearance History Per: Patient History/Exam Limitations: no limitations Onset/Duration Of Symptoms: Hrs Current Symptoms Are (Timing): Gone Recent travel outside of the [place]: No Past Medical History Reviewed: Historical Data, Nursing Documentation, Vital Signs Vital Signs: Last Vital Signs Temp 97.9 F 05/10/18 09:11 Pulse 77 05/10/18 09:11 Resp 18 05/10/18 09:11 BP 153/80 H 05/10/18 09:11 Pulse Ox 100 05/10/18 09:11 - Medical History PMH: Anxiety, Arthritis, Benign Prostatic Hyperplasia, Bipolar Disorder, Dementia, HTN, Hypercholesterolemia Family History: States: Unknown Family Hx - Social History Hx Tobacco Use: No Hx Alcohol Use: No (Former) Hx Substance Use: No - Immunization History Hx Tetanus Toxoid Vaccination: No Hx Influenza Vaccination: No Hx Pneumococcal Vaccination: No Review Of Systems Except As Marked, All Systems Reviewed And Found Negative. Musculoskeletal: Positive for: Leg Pain (right leg) Physical Exam - Physical Exam Appears: Non-toxic, No Acute Distress, Unkempt, Other (Poor overall hygiene) Skin: Warm, Dry, No Rash Head: Atraumatic, Normacephalic Eye(s): bilateral: Normal Inspection, PERRL, EOMI Oral Mucosa: Moist Throat: Normal, No Erythema, No Exudate, No Drooling, No Mass Neck: Normal ROM, Supple Chest: Symmetrical, No Tenderness Cardiovascular: Rhythm Regular Respiratory: Normal Breath Sounds, No Rales, No Rhonchi, No Wheezing Gastrointestinal/Abdominal: Soft, No Tenderness Extremity: Normal ROM Extremity: Bilateral: Atraumatic, Normal Color And Temperature, Normal ROM Pulses: Left Radial: Normal, Right Radial: Normal Neurological/Psych: Oriented x3, Normal Speech Gait: Steady ED Course And Treatment O2 Sat by Pulse Oximetry: 100 (RA) Pulse Ox Interpretation: Normal Medical Decision Making Medical Decision Making: Plan: Patient is stable for discharge. Will discharge patient. Disposition - Disposition Forms: [email or web address] (Wallisian) - Scribe Statement The provider has reviewed the documentation as recorded by the Howie Dolan All medical record entries made by the Howie were at my direction and personally dictated by me. I have reviewed the chart and agree that the record accurately reflects my personal performance of the history, physical exam, medical decision making, and the department course for this patient. I have also personally directed, reviewed, and agree with the discharge instructions and disposition.
--- NOTE | 2018-05-10 12:14 | C.PDOC ---
History Of Present Illness 62 years old male is homeless and he presents to ED stating "I came here to relax." Patient states his right leg was hurting but it is chronic. Denies any other complaints or injuries. Time Seen by Provider: 05/10/18 12:00 Chief Complaint (Nursing): Medical Clearance History Per: Patient History/Exam Limitations: no limitations Onset/Duration Of Symptoms: Hrs Current Symptoms Are (Timing): Gone Recent travel outside of the [place]: No Past Medical History Reviewed: Historical Data, Nursing Documentation, Vital Signs Vital Signs: Last Vital Signs Temp 97.9 F 05/10/18 09:11 Pulse 77 05/10/18 09:11 Resp 18 05/10/18 09:11 BP 153/80 H 05/10/18 09:11 Pulse Ox 100 05/10/18 09:11 - Medical History PMH: Anxiety, Arthritis, Benign Prostatic Hyperplasia, Bipolar Disorder, Dementia, HTN, Hypercholesterolemia Family History: States: Unknown Family Hx - Social History Hx Tobacco Use: No Hx Alcohol Use: No (Former) Hx Substance Use: No - Immunization History Hx Tetanus Toxoid Vaccination: No Hx Influenza Vaccination: No Hx Pneumococcal Vaccination: No Review Of Systems Except As Marked, All Systems Reviewed And Found Negative. Musculoskeletal: Positive for: Leg Pain (Right) Physical Exam - Physical Exam Appears: Non-toxic, No Acute Distress, Unkempt, Other (Poor overall hygiene) Skin: Warm, Dry, No Rash Head: Atraumatic, Normacephalic Eye(s): bilateral: Normal Inspection, PERRL, EOMI Oral Mucosa: Moist Throat: Normal, No Erythema, No Exudate, No Drooling Neck: Normal ROM, Supple Chest: Symmetrical, No Tenderness Cardiovascular: Rhythm Regular Respiratory: Normal Breath Sounds, No Decreased Breath Sounds, No Rales, No Rhonchi, No Wheezing Gastrointestinal/Abdominal: Soft, No Tenderness Extremity: Normal ROM Extremity: Bilateral: Atraumatic, Normal Color And Temperature, Normal ROM Pulses: Left Radial: Normal, Right Radial: Normal Neurological/Psych: Oriented x3, Normal Speech Gait: Steady ED Course And Treatment O2 Sat by Pulse Oximetry: 100 (RA) Pulse Ox Interpretation: Normal Medical Decision Making Medical Decision Making: Plan: Patient has been sleeping in the ED and is stable for discharge. Patient will be discharged. Disposition - Disposition Referrals: [facility] [Outside] [facility] [Outside] Disposition: HOME/ ROUTINE Disposition Time: 12:11 Condition: STABLE Instructions: Chronic Pain Forms: [facility] (Palauan), General Discharge Instructions - POA Present On Arrival: None - Clinical Impression Clinical Impression: Encounter for medical screening examination, Homelessness - Scribe Statement The provider has reviewed the documentation as recorded by the Nellyibe Dl Dolan All medical record entries made by the Nellyibe were at my direction and personally dictated by me. I have reviewed the chart and agree that the record accurately reflects my personal performance of the history, physical exam, m edical decision making, and the department course for this patient. I have also personally directed, reviewed, and agree with the discharge instructions and disposition.
[2018-05-10 12:54] VITALS: BP 156/86; PULSE 93; RESP 20; TEMP 98.6
== END 2018-05-10 12:49 | disposition home or self-care (01) ==
LOC: C.ER 08:52
DX: Z00.00 Encounter for general adult medical examination without abnormal findings (principal); Z59.0 Homelessness

== ENCOUNTER 2018-05-10 14:42 | Emergency (ER) | payer MEDICARE ==
[2018-05-10 14:42] VITALS: BMI 27.3
[2018-05-10 14:54] VITALS: BP 127/86; RESP 18; O2SAT 100
--- NOTE | 2018-05-10 15:53 | C.PDOC ---
History Of Present Illness 62 y/o male, homeless, presents to ED for evaluation of the same bilateral leg pain and some headache, after being seen here a few hours ago for the same symptoms. Patient states he came to ED to relax. Otherwise he denies any other physical complaints or injuries. <Kali Esquivel - Last Filed: 05/10/18 16:05> Pt appears AAO#3, eat sandwich, not in any apparent distress. Ambulatory in ED with baseline gait. <Payal Gutierrez - Last Filed: 05/10/18 18:22> History Per: Patient History/Exam Limitations: no limitations Onset/Duration Of Symptoms: Hrs Current Symptoms Are (Timing): Still Present <Kali Esquivel - Last Filed: 05/10/18 16:05> <Payal Gutierrez - Last Filed: 05/10/18 18:22> Time Seen by Provider: 05/10/18 15:09 Chief Complaint (Nursing): Headache Past Medical History Reviewed: Historical Data, Nursing Documentation, Vital Signs Vital Signs: Last Vital Signs Temp 97.6 F 05/10/18 14:51 Pulse 84 05/10/18 14:51 Resp 18 05/10/18 14:51 BP 127/86 05/10/18 14:51 Pulse Ox 100 05/10/18 15:53 Family History: States: No Known Family Hx <Kali Esquivel - Last Filed: 05/10/18 16:05> Vital Signs: Last Vital Signs Temp 97.6 F 05/10/18 14:51 Pulse 84 05/10/18 14:51 Resp 18 05/10/18 14:51 BP 127/86 05/10/18 14:51 Pulse Ox 100 05/10/18 14:51 - Medical History PMH: Anxiety, Arthritis, Benign Prostatic Hyperplasia, Bipolar Disorder, Dementia, HTN, Hypercholesterolemia Denies: Diabetes, Hepatitis, HIV, Chronic Kidney Disease, Seizures, Sexually Transmitted Disease Family History: States: Unknown Family Hx - Social History Hx Tobacco Use: No Hx Alcohol Use: No (Former) Hx Substance Use: No - Immunization History Hx Tetanus Toxoid Vaccination: No Hx Influenza Vaccination: No Hx Pneumococcal Vaccination: No <Payal Gutierrez - Last Filed: 05/10/18 18:22> Review Of Systems Except As Marked, All Systems Reviewed And Found Negative. Constitutional: Negative for: Fever, Chills Cardiovascular: Negative for: Chest Pain Respiratory: Negative for: Shortness of Breath Gastrointestinal: Negative for: Nausea, Vomiting Musculoskeletal: Positive for: Leg Pain (bilateral) Neurological: Positive for: Headache. Negative for: Weakness, Numbness <SierraKali - Last Filed: 05/10/18 16:05> Physical Exam - Physical Exam Appears: Well, Non-toxic, No Acute Distress Skin: Warm, Dry, No Rash Head: Normacephalic Eye(s): bilateral: PERRL Oral Mucosa: Moist Neck: Trachea Midline, No Midline Cervical Tenderness, No Paracervical Tenderne ss, Supple Chest: Symmetrical, No Deformity, No Tenderness Cardiovascular: Rhythm Regular, No Murmur Respiratory: No Decreased Breath Sounds, No Accessory Muscle Use, No Rales, No Rhonchi, No Wheezing Extremity: Normal ROM (of bilateral legs), No Pedal Edema, Capillary Refill (less than 2 seconds), No Deformity Neurological/Psych: Oriented x3, Normal Speech, Normal Motor, Normal Sensation, Normal Reflexes <SierraKali - Last Filed: 05/10/18 16:05> ED Course And Treatment O2 Sat by Pulse Oximetry: 100 (RA) Pulse Ox Interpretation: Normal Progress Note: Tylenol administered. 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 - Scribe Statement The provider has reviewed the documentation as recorded by the Scribe Justina Delgado All medical record entries made by the Scribe were at my direction and pe rsonally dictated by me. I have reviewed the chart and agree that the record accurately reflects my personal performance of the history, physical exam, medical decision making, and the department course for this patient. I have also personally directed, reviewed, and agree with the discharge instructions and disposition. <Kali Esquivel - Last Filed: 05/10/18 16:05>
[2018-05-10 16:07] VITALS: PULSE 82; TEMP 97.9
== END 2018-05-10 16:13 | disposition home or self-care (01) ==
LOC: C.ER 14:42
DX: R51 Headache (principal)

== ENCOUNTER 2018-05-11 15:16 | Emergency (ER) | payer MEDICARE ==
[2018-05-11 15:55] VITALS: RESP 18; TEMP 98.9; O2SAT 100; BMI 28.5
--- NOTE | 2018-05-11 16:21 | C.PDOC ---
History Of Present Illness 62yo yo homeless, present to ED, asking for food and jail. Pt has multiple daily visits to ED due to same complaints. APpears AAO#3, not in any apparent distress. Asking for food and place to rest now. Time Seen by Provider: 05/11/18 16:16 Chief Complaint (Nursing): Lower Extremity Problem/Injury History Per: Patient Past Medical History Reviewed: Historical Data, Nursing Documentation, Vital Signs Vital Signs: Last Vital Signs Temp 98.9 F 05/11/18 15:38 Pulse 89 05/11/18 15:38 Resp 18 05/11/18 15:38 BP 117/62 05/11/18 15:38 Pulse Ox 100 05/11/18 15:38 - Medical History PMH: Anxiety, Arthritis, Benign Prostatic Hyperplasia, Bipolar Disorder, Dementia, HTN, Hypercholesterolemia Denies: Diabetes, Hepatitis, HIV, Chronic Kidney Disease, Seizures, Sexually Transmitted Disease Family History: States: Unknown Family Hx - Social History Hx Tobacco Use: No Hx Alcohol Use: No (Former) Hx Substance Use: No - Immunization History Hx Tetanus Toxoid Vaccination: No Hx Influenza Vaccination: No Hx Pneumococcal Vaccination: No Review Of Systems Except As Marked, All Systems Reviewed And Found Negative. Constitutional: Negative for: Fever, Chills Eyes: Negative for: Vision Change ENT: Negative for: Throat Pain Cardiovascular: Negative for: Chest Pain, Palpitations, Edema, Light Headedness Respiratory: Negative for: Cough, Shortness of Breath Gastrointestinal: Negative for: Nausea, Vomiting, Abdominal Pain, Diarrhea Genitourinary: Negative for: Frequency Skin: Negative for: Bruising Neurological: Negative for: Weakness, Numbness, Altered Mental Status, Headache, Dizziness Physical Exam - Physical Exam Appears: Non-toxic, No Acute Distress, Unkempt, Other (Ambulatory baseline gait) Skin: Normal Color, Warm, Dry, No Rash, No Ecchymosis Head: Atraumatic, Normacephalic Eye(s): bilateral: PERRL Nose: No Flaring Throat: No Drooling Neck: No Midline Cervical Tenderness, No Paracervical Tenderness, No Step Off Deformity, Supple Cardiovascular: Rhythm Regular, No Murmur, No JVD Respiratory: No Decreased Breath Sounds, No Accessory Muscle Use, No Stridor, No Wheezing Gastrointestinal/Abdominal: Soft, No Tenderness Extremity: Normal ROM, No Tenderness, No Pedal Edema, No Deformity Neurological/Psych: Oriented x3, Normal Speech, Normal Motor, Normal Sensation, Normal Reflexes ED Course And Treatment O2 Sat by Pulse Oximetry: 100 Progress Note: Pt appears at his baseline MS, ambulatory with baseline gait. Multiple daily visits with dianelys complaints. Asking for food nad jail. Pt was fed, tolerate well. Stable for discharge now. Disposition Counseled Patient/Family Regarding: Diagnosis, Need For Followup - Disposition Referrals: [facility] [Outside] Disposition: HOME/ ROUTINE Disposition Time: 16:18 Condition: STABLE Instructions: Lower Extremity Muscle Strain (DC) - Clinical Impression Clinical Impression: Homeless single person, Chronic pain of right hip
[2018-05-11 18:43] VITALS: BP 125/64; PULSE 83
== END 2018-05-11 18:42 | disposition home or self-care (01) ==
LOC: C.ER 15:16
DX: G89.29 Other chronic pain (principal); M25.551 Pain in right hip; Z59.0 Homelessness

== ENCOUNTER 2018-05-12 07:48 | Emergency (ER) | payer MEDICARE ==
[2018-05-12 07:48] VITALS: BMI 27.3
[2018-05-12 07:54] VITALS: BP 99/67; PULSE 77; RESP 18; TEMP 97.8; O2SAT 100
--- NOTE | 2018-05-12 08:16 | C.PDOC ---
History Of Present Illness 62 y/o homeless male presents to ED stating "My ass hurts, leg hurts and want to lay down". Patient is well known to ED and was discharged from ED last night, currently denies any other physical complaints at this time. Time Seen by Provider: 05/12/18 07:56 Chief Complaint (Nursing): Lower Extremity Problem/Injury History Per: Patient History/Exam Limitations: no limitations Onset/Duration Of Symptoms: Days Current Symptoms Are (Timing): Still Present Past Medical History Reviewed: Historical Data, Nursing Documentation, Vital Signs Vital Signs: Last Vital Signs Temp 97.8 F 05/12/18 07:50 Pulse 77 05/12/18 07:50 Resp 18 05/12/18 07:50 BP 99/67 L 05/12/18 07:50 Pulse Ox 100 05/12/18 07:50 - Medical History PMH: Anxiety, Arthritis, Benign Prostatic Hyperplasia, Bipolar Disorder, Dementia, HTN, Hypercholesterolemia Surgical History: No Surg Hx Family History: States: No Known Family Hx - Social History Hx Tobacco Use: No Hx Alcohol Use: No (Former) Hx Substance Use: No - Immunization History Hx Tetanus Toxoid Vaccination: No Hx Influenza Vaccination: No Hx Pneumococcal Vaccination: No Review Of Systems Constitutional: Negative for: Fever, Chills Gastrointestinal: Negative for: Nausea, Vomiting Musculoskeletal: Positive for: Leg Pain Skin: Negative for: Rash Physical Exam - Physical Exam Appears: Non-toxic, Unkempt Skin: Warm, Dry, No Rash Head: Atraumatic, Normacephalic Eye(s): bilateral: Normal Inspection, EOMI Oral Mucosa: Moist Neck: Normal ROM, Supple Cardiovascular: Rhythm Regular Respiratory: Normal Breath Sounds, No Rales, No Rhonchi, No Wheezing Extremity: Normal ROM, No Pedal Edema, Capillary Refill (<2 seconds), No Deformity Neurological/Psych: Oriented x3, Normal Speech, Normal Cognition Gait: Steady ED Course And Treatment O2 Sat by Pulse Oximetry: 100 (RA) Pulse Ox Interpretation: Normal Progress Note: Patient given snacks to eat. 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 - Scribe Statement The provider has reviewed the documentation as recorded by the Howie Ellis All medical record entries made by the Howie were at my direction and personally dictated by me. I have reviewed the chart and agree that the record accurately reflects my personal performance of the history, physical exam, medical decision making, and the department course for this patient. I have also personally directed, reviewed, and agree with the discharge instructions and disposition.
== END 2018-05-12 10:35 | disposition home or self-care (01) ==
LOC: C.ER 07:48
DX: G89.29 Other chronic pain (principal); Z59.0 Homelessness

== ENCOUNTER 2018-06-14 14:11 | Emergency (ER) | payer MEDICARE ==
[2018-06-14 14:11] VITALS: BMI 24.4
[2018-06-14 15:06] VITALS: BP 145/87; PULSE 86; RESP 20; TEMP 98.2; O2SAT 98
--- NOTE | 2018-06-14 16:00 | C.PDOC ---
History Of Present Illness 62 year old male presents to the ED for evaluation of chronic leg pain and right knee pain for 1-2 days. Patient has multiple prior ED visits. In the ED, patient requests food. Denies fever, back pain, saddle anesthesia, incontinence, numbness, weakness, tingling, and any other associated symptoms. Time Seen by Provider: 06/14/18 15:48 Chief Complaint (Nursing): Lower Extremity Problem/Injury History Per: Patient History/Exam Limitations: no limitations Onset/Duration Of Symptoms: Days (x1) Current Symptoms Are (Timing): Still Present Past Medical History Reviewed: Historical Data, Nursing Documentation, Vital Signs Vital Signs: Last Vital Signs Temp 98.2 F 06/14/18 15:05 Pulse 86 06/14/18 15:05 Resp 20 06/14/18 15:05 BP 145/87 06/14/18 15:05 Pulse Ox 98 06/14/18 15:05 - Medical History PMH: Anxiety, Arthritis, Benign Prostatic Hyperplasia, Bipolar Disorder, Dementia, HTN, Hypercholesterolemia Denies: HIV, Chronic Kidney Disease, Seizures, Sexually Transmitted Disease Family History: States: Unknown Family Hx - Social History Hx Tobacco Use: No Hx Alcohol Use: No (Former) Hx Substance Use: No - Immunization History Hx Tetanus Toxoid Vaccination: No Hx Influenza Vaccination: No Hx Pneumococcal Vaccination: No Review Of Systems Except As Marked, All Systems Reviewed And Found Negative. Constitutional: Negative for: Fever Musculoskeletal: Positive for: Leg Pain (chronic), Other (right knee pain. ) Neurological: Negative for: Weakness, Numbness, Incoordination Physical Exam - Physical Exam Appears: No Acute Distress, Other (unkempt.) Skin: Warm, Dry, No Rash Head: Atraumatic, Normacephalic Eye(s): bilateral: Normal Inspection Oral Mucosa: Moist Neck: Normal ROM, Supple Chest: Symmetrical, No Deformity Cardiovascular: Rhythm Regular, No Murmur Respiratory: Normal Breath Sounds, No Rales, No Rhonchi, No Wheezing Gastrointestinal/Abdominal: Normal Exam, Soft, No Tenderness Extremity: Normal ROM, No Tenderness, No Deformity, No Swelling Neurological/Psych: Oriented x3 Gait: Steady ED Course And Treatment O2 Sat by Pulse Oximetry: 98 (RA) Pulse Ox Interpretation: Normal Medical Decision Making Medical Decision Making: Progress/Update: Patient stable for discharge home. On re-exam, the patient with normal physical exam is ambulatory in the ease and steady gait. Disposition - Disposition Referrals: [facility] [Outside] Disposition: HOME/ ROUTINE Disposition Time: 15:59 Condition: STABLE Additional Instructions: Follow up with the medical doctor within 1-2 days. return if worsened. Follow up worsened. 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 - Scribe Statement The provider has reviewed the documentation as recorded by the Scribe (Katharine Crow) All medical record entries made by the Scribe were at my direction and personally dictated by me. I have reviewed the chart and agree that the record accurately reflects my personal performance of the history, physical exam, medical decision making, and the department course for this patient. I have also personally directed, reviewed, and agree with the discharge instructions and disposition.
== END 2018-06-14 16:48 | disposition home or self-care (01) ==
LOC: C.ER 14:11
DX: G89.29 Other chronic pain (principal); M25.561 Pain in right knee; E78.00 Pure hypercholesterolemia, unspecified; I10 Essential (primary) hypertension; N40.0 Benign prostatic hyperplasia without lower urinary tract symptoms

== ENCOUNTER 2018-06-14 18:02 | Emergency (ER) | payer MEDICARE ==
[2018-06-14 18:02] VITALS: BMI 24.4
[2018-06-14 18:08] VITALS: TEMP 98; O2SAT 100
--- NOTE | 2018-06-14 18:16 | C.PDOC ---
History Of Present Illness 62 year old male presents to the ED for evaluation of chronic leg pain and right knee pain for 1-2 days. Patient has multiple prior ED visits. In the ED, patient requests food. Denies fever, numbness, tingling, and any other associated symptoms. Time Seen by Provider: 06/14/18 18:15 Chief Complaint (Nursing): Lower Extremity Problem/Injury History Per: Patient History/Exam Limitations: no limitations Onset/Duration Of Symptoms: Days (x1) Current Symptoms Are (Timing): Still Present Past Medical History Reviewed: Historical Data, Nursing Documentation, Vital Signs Vital Signs: Last Vital Signs Temp 98 F 06/14/18 18:06 Pulse 81 06/14/18 18:06 Resp 20 06/14/18 18:06 BP 160/70 H 06/14/18 18:06 Pulse Ox 100 06/14/18 18:06 - Medical History PMH: Anxiety, Arthritis, Benign Prostatic Hyperplasia, Bipolar Disorder, De mentia, HTN, Hypercholesterolemia Denies: HIV, Chronic Kidney Disease, Seizures, Sexually Transmitted Disease Family History: States: Unknown Family Hx - Social History Hx Tobacco Use: No Hx Alcohol Use: No (Former) Hx Substance Use: No - Immunization History Hx Tetanus Toxoid Vaccination: No Hx Influenza Vaccination: No Hx Pneumococcal Vaccination: No Review Of Systems Constitutional: Negative for: Fever Musculoskeletal: Positive for: Leg Pain (chronic.), Other (rigth knee pain. ) Neurological: Negative for: Weakness, Numbness, Incoordination Physical Exam - Physical Exam Appears: No Acute Distress, Other (umkempt. ) Skin: Warm, Dry Head: Atraumatic, Normacephalic Eye(s): bilateral: Normal Inspection Oral Mucosa: Moist Neck: Normal ROM, Supple Chest: Symmetrical, No Deformity Cardiovascular: Rhythm Regular, No Murmur Respiratory: Normal Breath Sounds, No Rales, No Rhonchi, No Wheezing, Other (NARD) Gastrointestinal/Abdominal: Normal Exam, Soft, No Tenderness Extremity: Normal ROM, No Tenderness, No Deformity, No Swelling Neurological/Psych: Oriented x3 ED Course And Treatment O2 Sat by Pulse Oximetry: 100 (RA) Pulse Ox Interpretation: Normal Medical Decision Making Medical Decision Making: Progress/Update: Patient stable for discharge home. Disposition Counseled Patient/Family Regarding: Diagnosis, Need For Followup - Disposition Disposition: HOME/ ROUTINE Disposition Time: 18:15 Condition: GOOD Instructions: Chronic Pain (DC) Forms: [facility] (Latvian), General Discharge Instructions - Clinical Impression Clinical Impression: Always hungry, Malingering, Homeless, Chronic pain - Scribe Statement The provider has reviewed the documentation as recorded by the Scribe (Katharine Crow) Provider Attestation: All medical record entries made by the Scribe were at my direction and personally dictated by me. I have reviewed the chart and agree that the record accurately reflects my personal performance of the history, physical exam, medical decision making, and the department course for this patient. I have also personally directed, reviewed, and agree with the discharge instructions and disposition.
[2018-06-14 18:31] VITALS: BP 145/64; PULSE 80; RESP 18
== END 2018-06-14 18:30 | disposition home or self-care (01) ==
LOC: C.ER 18:02
DX: G89.29 Other chronic pain (principal); Z59.0 Homelessness; Z76.5 Malingerer [conscious simulation]; R63.2 Polyphagia; I10 Essential (primary) hypertension; E78.00 Pure hypercholesterolemia, unspecified; N40.0 Benign prostatic hyperplasia without lower urinary tract symptoms

== ENCOUNTER 2018-06-15 02:52 | Emergency (ER) | payer MEDICARE ==
[2018-06-15 02:54] VITALS: BMI 24.4
[2018-06-15 03:19] VITALS: BP 160/90; TEMP 97.4
[2018-06-15 03:28] VITALS: PULSE 84; RESP 14; O2SAT 99
--- NOTE | 2018-06-15 04:06 | C.PDOC ---
History Of Present Illness 62 year old homeless male presents to the ER requesting a place to spend the night and a sandwich. Denies any complaints at this time. Chief Complaint (Nursing): Medical Clearance History Per: Patient History/Exam Limitations: no limitations Onset/Duration Of Symptoms: Hrs Recent travel outside of the [place]: No Past Medical History Reviewed: Historical Data, Nursing Documentation, Vital Signs Vital Signs: Last Vital Signs Temp 97.4 F L 06/15/18 03:00 Pulse 84 06/15/18 03:20 Resp 14 06/15/18 03:20 BP 160/90 H 06/15/18 03:20 Pulse Ox 99 06/15/18 03:20 - Medical History PMH: Anxiety, Arthritis, Benign Prostatic Hyperplasia, Bipolar Disorder, Dementia, HTN, Hypercholesterolemia Denies: HIV, Chronic Kidney Disease, Seizures, Sexually Transmitted Disease Family History: States: Unknown Family Hx - Social History Hx Tobacco Use: No Hx Alcohol Use: No (Former) Hx Substance Use: No - Immunization History Hx Tetanus Toxoid Vaccination: No Hx Influenza Vaccination: No Hx Pneumococcal Vaccination: No Review Of Systems Constitutional: Negative for: Fever, Chills Cardiovascular: Negative for: Chest Pain, Palpitations Respiratory: Negative for: Cough, Shortness of Breath Gastrointestinal: Negative for: Nausea, Vomiting Neurological: Negative for: Weakness, Numbness Physical Exam - Physical Exam Appears: Non-toxic, Other (No injury) Skin: Normal Color, Warm, Dry Head: Atraumatic, Normacephalic Oral Mucosa: Moist Chest: Symmetrical, No Tenderness Cardiovascular: Rhythm Regular Respiratory: Normal Breath Sounds, No Rales, No Rhonchi, No Wheezing Gastrointestinal/Abdominal: Soft, No Tenderness Neurological/Psych: Oriented x3, Normal Speech Gait: Steady ED Course And Treatment O2 Sat by Pulse Oximetry: 99 (Room air) Pulse Ox Interpretation: Normal Progress Note: Patient is well known to this ER, walaking around after the ED staff asking for food. Pt is comfortable in the ER in no acute distress, vitals are stable, will discharge. 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 - Scribe Statement The provider has reviewed the documentation as recorded by the Howie Sofia All medical record entries made by the Howie were at my direction and personally dictated by me. I have reviewed the chart and agree that the record accurately reflects my personal performance of the history, physical exam, medical decision making, and the department course for this patient. I have also personally directed, reviewed, and agree with the discharge instructions and disposition.
== END 2018-06-15 03:28 | disposition home or self-care (01) ==
LOC: C.ER 02:52
DX: Z02.89 Encounter for other administrative examinations (principal); Z59.0 Homelessness

== ENCOUNTER 2018-06-15 08:47 | Emergency (ER) | payer MEDICARE ==
[2018-06-15 08:47] VITALS: BMI 24.4
[2018-06-15 08:57] VITALS: BP 166/82; PULSE 86; RESP 20; TEMP 98.1; O2SAT 100
--- NOTE | 2018-06-15 09:15 | C.PDOC ---
<Sohail Eason V - Last Filed: 06/15/18 09:15> <Carin Goss - Last Filed: 06/15/18 09:15> Time Seen by Provider: 06/15/18 09:11 Chief Complaint (Nursing): Lower Extremity Problem/Injury Past Medical History Vital Signs: Last Vital Signs Temp 98.1 F 06/15/18 08:54 Pulse 86 06/15/18 08:54 Resp 20 06/15/18 08:54 BP 166/82 H 06/15/18 08:54 Pulse Ox 100 06/15/18 08:54 - Medical History PMH: Anxiety, Arthritis, Benign Prostatic Hyperplasia, Bipolar Disorder, Dementia, HTN, Hypercholesterolemia Denies: HIV, Chronic Kidney Disease, Seizures, Sexually Transmitted Disease Family History: States: Unknown Family Hx - Social History Hx Tobacco Use: No Hx Alcohol Use: No (Former) Hx Substance Use: No - Immunization History Hx Tetanus Toxoid Vaccination: No Hx Influenza Vaccination: No Hx Pneumococcal Vaccination: No <Sohail Eason V - Last Filed: 06/15/18 09:15> Vital Signs: Last Vital Signs Temp 98.1 F 06/15/18 08:54 Pulse 86 06/15/18 08:54 Resp 20 06/15/18 08:54 BP 166/82 H 06/15/18 08:54 Pulse Ox 100 06/15/18 09:15 <Carin Goss - Last Filed: 06/15/18 09:15> ED Course And Treatment O2 Sat by Pulse Oximetry: 100 <Sohail Eason V - Last Filed: 06/15/18 09:15> Disposition <Sohail Eason V - Last Filed: 06/15/18 09:15> <Carin Goss - Last Filed: 06/15/18 09:15> - Disposition Forms: [employer] [facility] (Costa Rican)
--- NOTE | 2018-06-15 09:16 | C.PDOC ---
History Of Present Illness 62 y/o male who was seen here in ED earlier this morning comes in with same complaint of chronic lower extremity pain. Patient is homeless and states he wants a place to stay. Otherwise patient denies any other physical complaints. Patient was d/c from ED earlier today. Time Seen by Provider: 06/15/18 09:11 Chief Complaint (Nursing): Lower Extremity Problem/Injury History Per: Patient History/Exam Limitations: no limitations Onset/Duration Of Symptoms: Days Current Symptoms Are (Timing): Still Present Past Medical History Reviewed: Historical Data, Nursing Documentation, Vital Signs Vital Signs: Last Vital Signs Temp 98.1 F 06/15/18 08:54 Pulse 86 06/15/18 08:54 Resp 20 06/15/18 08:54 BP 166/82 H 06/15/18 08:54 Pulse Ox 100 06/15/18 09:15 - Medical History PMH: Anxiety, Arthritis, Benign Prostatic Hyperplasia, Bipolar Disorder, Dementia, HTN, Hypercholesterolemia Denies: HIV, Chronic Kidney Disease, Seizures, Sexually Transmitted Disease Family History: States: No Known Family Hx - Social History Hx Tobacco Use: No Hx Alcohol Use: No (Former) Hx Substance Use: No - Immunization History Hx Tetanus Toxoid Vaccination: No Hx Influenza Vaccination: No Hx Pneumococcal Vaccination: No Review Of Systems Except As Marked, All Systems Reviewed And Found Negative. Constitutional: Negative for: Fever, Chills Musculoskeletal: Positive for: Leg Pain Neurological: Negative for: Weakness, Numbness Physical Exam - Physical Exam Appears: Non-toxic, No Acute Distress Skin: Warm, Dry Head: Atraumatic, Normacephalic Eye(s): bilateral: Normal Inspection, PERRL Oral Mucosa: Moist Chest: Symmetrical Cardiovascular: Rhythm Regular, No Murmur Respiratory: Normal Breath Sounds, No Rales, No Rhonchi, No Wheezing Extremity: Bilateral: Atraumatic, Normal Color And Temperature, Normal ROM Neurological/Psych: Oriented x3, Normal Speech Gait: Steady ED Course And Treatment O2 Sat by Pulse Oximetry: 100 (RA) Pulse Ox Interpretation: Normal Disposition - Disposition Disposition: HOME/ ROUTINE Disposition Time: 09:16 Condition: STABLE Forms: [facility] (Czech) - Clinical Impression Clinical Impression: Homeless single person, Chronic leg pain - 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 - Scribe Statement The provider has reviewed the documentation as recorded by the Nellyibjayla Delgado All medical record entries made by the Howie were at my direction and personally dictated by me. I have reviewed the chart and agree that the record accurately reflects my personal performance of the history, physical exam, medical decision making, and the department course for this patient. I have also personally directed, reviewed, and agree with the discharge instructions and disposition.
== END 2018-06-15 09:40 | disposition home or self-care (01) ==
LOC: C.ER 08:47
DX: G89.29 Other chronic pain (principal); M79.606 Pain in leg, unspecified; Z59.0 Homelessness

== ENCOUNTER 2018-06-15 15:45 | Emergency (ER) | payer MEDICARE ==
[2018-06-15 15:45] VITALS: BMI 24.4
[2018-06-15 15:53] VITALS: BP 158/78; PULSE 87; RESP 18; TEMP 97.8; O2SAT 98
--- NOTE | 2018-06-15 16:06 | C.PDOC ---
History Of Present Illness 62 year old male presents to the ED via EMS. The patient is a local homeless, well known to the ED and this physician. He was seen by [facility] early in the afternoon. Presents with no medical complaints at this time. Time Seen by Provider: 06/15/18 16:05 Chief Complaint (Nursing): Lower Extremity Problem/Injury History Per: EMS History/Exam Limitations: no limitations Past Medical History Reviewed: Historical Data, Nursing Documentation, Vital Signs Vital Signs: Last Vital Signs Temp 97.8 F 06/15/18 15:52 Pulse 87 06/15/18 15:52 Resp 18 06/15/18 15:52 BP 158/78 H 06/15/18 15:52 Pulse Ox 98 06/15/18 15:52 - Medical History PMH: Anxiety, Arthritis, Benign Prostatic Hyperplasia, Bipolar Disorder, Dementia, HTN, Hypercholesterolemia Denies: HIV, Chronic Kidney Disease, Seizures, Sexually Transmitted Disease Family History: States: Unknown Family Hx - Social History Hx Tobacco Use: No Hx Alcohol Use: No (Former) Hx Substance Use: No - Immunization History Hx Tetanus Toxoid Vaccination: No Hx Influenza Vaccination: No Hx Pneumococcal Vaccination: No Review Of Systems Review Of Systems: ROS cannot be obtained secondary to pt's inabilty to answer questions. Physical Exam - Physical Exam Appears: No Acute Distress, Other (tall. black male. ) Skin: Warm, Dry Head: Atraumatic, Normacephalic Eye(s): bilateral: Normal Inspection Oral Mucosa: Moist Neck: Normal ROM, Supple Chest: Symmetrical, No Deformity Cardiovascular: Rhythm Regular, No Murmur Respiratory: Normal Breath Sounds, No Rales, No Rhonchi, No Wheezing Gastrointestinal/Abdominal: Normal Exam, Soft Neurological/Psych: Oriented x3 Gait: Steady (painless.) ED Course And Treatment O2 Sat by Pulse Oximetry: 98 (RA) Pulse Ox Interpretation: Normal (R) Medical Decision Making Medical Decision Making: malingerer, homeless no acute issues seen this AM for same, no changes seen @ [facility] today, no acute issues. Progress/Update: Patient stable for discharge home. Disposition Doctor Will See Patient In The: Office Counseled Patient/Family Regarding: Studies Performed, Diagnosis - Disposition Referrals: [facility] [Outside] [facility] [Outside] [facility] [Outside] [facility] [Outside] Disposition: HOME/ ROUTINE Disposition Time: 16:06 Condition: GOOD Additional Instructions: seek outpatient resources Seek nightly [facility] placement Instructions: Chronic Pain (DC) Forms: [facility] (South Sudanese) - Clinical Impression Clinical Impression: Homeless single person, Chronic pain of right hip, Malingerer - Scribe Statement The provider has reviewed the documentation as recorded by the Scribe (Katharine Crow) Provider Attestation: All medical record entries made by the Scribe were at my direction and personally dictated by me. I have reviewed the chart and agree that the record accurately reflects my personal performance of the history, physical exam, medical decision making, and the department course for this patient. I have also personally directed, reviewed, and agree with the discharge instructions and disposition.
== END 2018-06-15 16:14 | disposition home or self-care (01) ==
LOC: C.ER 15:45
DX: G89.29 Other chronic pain (principal); M25.551 Pain in right hip; Z76.5 Malingerer [conscious simulation]; Z59.0 Homelessness

== ENCOUNTER 2018-06-16 06:54 | Emergency (ER) | payer MEDICARE ==
[2018-06-16 06:54] VITALS: BMI 24.4
[2018-06-16 07:03] VITALS: BP 136/92; PULSE 74; RESP 22; TEMP 98.3; O2SAT 98
--- NOTE | 2018-06-16 07:32 | C.PDOC ---
Time Seen by Provider: 06/16/18 07:32 Chief Complaint (Nursing): Lower Extremity Problem/Injury Past Medical History Vital Signs: Last Vital Signs Temp 98.3 F 06/16/18 06:59 Pulse 74 06/16/18 06:59 Resp 22 06/16/18 06:59 BP 136/92 H 06/16/18 06:59 Pulse Ox 98 06/16/18 06:59 - Medical History PMH: Anxiety, Arthritis, Benign Prostatic Hyperplasia, Bipolar Disorder, Dementia, HTN, Hypercholesterolemia Denies: HIV, Chronic Kidney Disease, Seizures, Sexually Transmitted Disease Family History: States: Unknown Family Hx - Social History Hx Tobacco Use: No Hx Alcohol Use: No (Former) Hx Substance Use: No - Immunization History Hx Tetanus Toxoid Vaccination: No Hx Influenza Vaccination: No Hx Pneumococcal Vaccination: No ED Course And Treatment O2 Sat by Pulse Oximetry: 98 Disposition - Disposition Forms: [employer] (Slovenian)
--- NOTE | 2018-06-16 07:33 | C.PDOC ---
History Of Present Illness 62 year old male brought to ED vis [facility] for evaluation of chronic leg pain bilaterally. Patient has multiple prior ED visits. Patient states he wants a place to stay because it is cold outside. Denies fever, numbness, tingling, and any other complaints. Time Seen by Provider: 06/16/18 07:32 Chief Complaint (Nursing): Lower Extremity Problem/Injury History Per: Patient History/Exam Limitations: no limitations Onset/Duration Of Symptoms: Hrs Current Symptoms Are (Timing): Still Present Recent travel outside of the [place]: No Past Medical History Reviewed: Historical Data, Nursing Documentation, Vital Signs Vital Signs: Last Vital Signs Temp 98.3 F 06/16/18 06:59 Pulse 74 06/16/18 06:59 Resp 22 06/16/18 06:59 BP 136/92 H 06/16/18 06:59 Pulse Ox 98 06/16/18 06:59 - Medical History PMH: Anxiety, Arthritis, Benign Prostatic Hyperplasia, Bipolar Disorder, Dementia, HTN, Hypercholesterolemia Surgical History: No Surg Hx Family History: States: Unknown Family Hx - Social History Hx Tobacco Use: No Hx Alcohol Use: No (Former) Hx Substance Use: No - Immunization History Hx Tetanus Toxoid Vaccination: No Hx Influenza Vaccination: No Hx Pneumococcal Vaccination: No Review Of Systems Except As Marked, All Systems Reviewed And Found Negative. Constitutional: Negative for: Fever, Chills Musculoskeletal: Positive for: Leg Pain (Chronic) Skin: Negative for: Rash Neurological: Negative for: Weakness, Numbness, Incoordination Physical Exam - Physical Exam Appears: Non-toxic, No Acute Distress Skin: Normal Color, Warm, Dry, No Rash Head: Atraumatic, Normacephalic Eye(s): bilateral: Normal Inspection, PERRL, EOMI Oral Mucosa: Moist Neck: Normal ROM, Supple Chest: Symmetrical, No Tenderness Cardiovascular: Rhythm Regular, No Murmur Respiratory: Normal Breath Sounds, No Rales, No Rhonchi, No Wheezing, Other (NARD) Gastrointestinal/Abdominal: Normal Exam, Soft, No Tenderness Extremity: Normal ROM, No Deformity, No Swelling Extremity: Bilateral: Atraumatic, Normal Color And Temperature, Normal ROM Pulses: Left Radial: Normal, Right Radial: Normal Neurological/Psych: Oriented x3, Normal Speech Gait: Steady ED Course And Treatment O2 Sat by Pulse Oximetry: 98 (RA) Pulse Ox Interpretation: Normal Medical Decision Making Medical Decision Making: Patient is stable for discharge and will be discharged. Disposition Counseled Patient/Family Regarding: Diagnosis - Disposition Referrals: [facility] [Outside] [facility] [Outside] Disposition: HOME/ ROUTINE Disposition Time: 07:32 Condition: GOOD Instructions: Chronic Pain (DC) Forms: [facility] (Telugu), General Discharge Instructions - Clinical Impression Clinical Impression: Chronic pain, Malingerer, Homeless - Scribe Statement The provider has reviewed the documentation as recorded by the Scribjayla Dolan All medical record entries made by the Nellyibjayla were at my direction and personally dictated by me. I have reviewed the chart and agree that the record accurately reflects my personal performance of the history, physical exam, medical decision making, and the department course for this patient. I have also personally directed, reviewed, and agree with the discharge instructions and disposition.
== END 2018-06-16 07:57 | disposition home or self-care (01) ==
LOC: C.ER 06:54
DX: G89.29 Other chronic pain (principal); Z76.5 Malingerer [conscious simulation]; Z59.0 Homelessness

== ENCOUNTER 2018-06-16 18:15 | Emergency (ER) | payer MEDICARE, MEDICAID ==
[2018-06-16 18:33] VITALS: BP 148/84; PULSE 100; RESP 18; TEMP 98.1; O2SAT 95
--- NOTE | 2018-06-16 19:18 | C.PDOC ---
History Of Present Illness 62 y/o male presents to the ER complaining of chronic leg pain. Patient states that he would like a place to lay down so he could feel better. Patient denies having new injuries to the area, weakness, and numbness. Time Seen by Provider: 06/16/18 18:30 Chief Complaint (Nursing): Lower Extremity Problem/Injury History Per: Patient History/Exam Limitations: no limitations Onset/Duration Of Symptoms: Days Current Symptoms Are (Timing): Still Present Severity: Moderate Past Medical History Reviewed: Historical Data, Nursing Documentation, Vital Signs Vital Signs: Last Vital Signs Temp 98.1 F 06/16/18 18:31 Pulse 100 H 06/16/18 18:31 Resp 18 06/16/18 18:31 BP 148/84 06/16/18 18:31 Pulse Ox 95 06/16/18 18:31 - Medical History PMH: Anxiety, Arthritis, Benign Prostatic Hyperplasia, Bipolar Disorder, Dementia, HTN, Hypercholesterolemia Other Surgeries: Hx of surgeries Family History: States: No Known Family Hx - Social History Hx Tobacco Use: No Hx Alcohol Use: No (Former) Hx Substance Use: No Review Of Systems Review Of Systems: ROS cannot be obtained secondary to pt's inabilty to answer questions. (patient is not cooperative) Physical Exam - Physical Exam Additional Physical Exam Comments: Patient refused to have physical examination and show his legs. ED Course And Treatment O2 Sat by Pulse Oximetry: 95 (RA) Pulse Ox Interpretation: Normal Medical Decision Making Medical Decision Making: Plan: --Tylenol PO Updates: Past records show that pt was seen in ER x5 today. Pt is in waiting room, pt is in no acute distress. Pt was given food. Pt has been informed about homeless shelters and discharged. 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 - Scribe Statement The provider has reviewed the documentation as recorded by the Howie Rios Provider Attestation All medical record entries made by the Scribe were at my direction and personally dictated by me. I have reviewed the chart and agree that the record a ccurately reflects my personal performance of the history, physical exam, medical decision making, and the department course for this patient. I have also personally directed, reviewed, and agree with the discharge instructions and disposition.
== END 2018-06-16 19:40 | disposition home or self-care (01) ==
LOC: C.ER 18:15
DX: G89.29 Other chronic pain (principal); M79.669 Pain in unspecified lower leg; I10 Essential (primary) hypertension; E78.00 Pure hypercholesterolemia, unspecified; F03.90 Unspecified dementia, unspecified severity, without behavioral disturbance, psychotic disturbance, mood disturbance, and anxiety; N40.0 Benign prostatic hyperplasia without lower urinary tract symptoms

== ENCOUNTER 2018-07-08 20:36 | Emergency (ER) | payer MEDICAID, MEDICARE ==
[2018-07-08 21:04] VITALS: BP 161/49; PULSE 96; TEMP 98; O2SAT 99
--- NOTE | 2018-07-08 21:14 | C.PDOC ---
History Of Present Illness 62 year old male is brought to the ED by ambulance for evaluation of persistent pain. Patient has been evaluated in this ED many times for similar complaints. He denies any new symptoms at this time. Time Seen by Provider: 07/08/18 21:13 Chief Complaint (Nursing): Lower Extremity Problem/Injury History Per: Patient History/Exam Limitations: no limitations Onset/Duration Of Symptoms: Hrs Current Symptoms Are (Timing): Still Present Additional History Per: Patient Past Medical History Reviewed: Historical Data, Nursing Documentation, Vital Signs Vital Signs: Last Vital Signs Temp 98 F 07/08/18 21:00 Pulse 96 H 07/08/18 21:00 Resp 22 07/08/18 21:00 BP 161/49 H 07/08/18 21:00 Pulse Ox 99 07/08/18 21:00 - Medical History PMH: Anxiety, Arthritis, Benign Prostatic Hyperplasia, Bipolar Disorder, Dementia, HTN, Hypercholesterolemia Surgical History: No Surg Hx Family History: States: Unknown Family Hx - Social History Hx Tobacco Use: No Hx Alcohol Use: No (Former) Hx Substance Use: No - Immunization History Hx Tetanus Toxoid Vaccination: No Hx Influenza Vaccination: No Hx Pneumococcal Vaccination: No Review Of Systems Musculoskeletal: Positive for: Other (persistent pain ) Physical Exam - Physical Exam Appears: Non-toxic, No Acute Distress Skin: Normal Color, Warm, Dry Head: Atraumatic, Normacephalic Eye(s): bilateral: Normal Inspection Oral Mucosa: Moist Neck: Supple Chest: Symmetrical, No Deformity Cardiovascular: Rhythm Regular Respiratory: Normal Breath Sounds Extremity: Normal ROM Neurological/Psych: Oriented x3, Normal Speech, Normal Cognition ED Course And Treatment O2 Sat by Pulse Oximetry: 99 (on RA) Pulse Ox Interpretation: Normal Disposition Counseled Patient/Family Regarding: Diagnosis, Need For Followup - Disposition [facility] [[facility]] [facility] [Outside] Disposition: HOME/ ROUTINE Disposition Time: 21:13 Condition: GOOD Instructions: Chronic Pain (DC) Forms: [facility] (Syrian) - Clinical Impression Clinical Impression: Chronic leg pain, Malingering - Scribe Statement The provider has reviewed the documentation as recorded by the Scribe (Claire Sosa) Provider Attestation: All medical record entries made by the Scribe were at my direction and pers onally dictated by me. I have reviewed the chart and agree that the record accurately reflects my personal performance of the history, physical exam, medical decision making, and the department course for this patient. I have also personally directed, reviewed, and agree with the discharge instructions and disposition.
[2018-07-08 21:37] VITALS: RESP 18
== END 2018-07-08 21:35 | disposition home or self-care (01) ==
LOC: C.ER 20:36
DX: M79.605 Pain in left leg (principal); M79.604 Pain in right leg; G89.29 Other chronic pain; Z76.5 Malingerer [conscious simulation]

== ENCOUNTER 2018-07-09 07:42 | Emergency (ER) | payer MEDICAID, MEDICARE ==
[2018-07-09 08:00] VITALS: BP 155/89; PULSE 86; RESP 18; TEMP 97.6; O2SAT 100
--- NOTE | 2018-07-09 09:07 | C.PDOC ---
History Of Present Illness 62 y/o male presents to the ED complaining that he wants to lay down. Patient also reports chronic leg pain but is refusing to be examined. Seen this morning at [facility] for the same, and was discharged home. Patient will not allow examination of legs. No other complaints at this time. Time Seen by Provider: 07/09/18 08:01 Chief Complaint (Nursing): Medical Clearance History Per: Patient History/Exam Limitations: no limitations Onset/Duration Of Symptoms: Days Current Symptoms Are (Timing): Still Present Past Medical History Reviewed: Historical Data, Nursing Documentation, Vital Signs Vital Signs: Last Vital Signs Temp 97.6 F 07/09/18 07:51 Pulse 86 07/09/18 07:51 Resp 18 07/09/18 07:51 BP 155/89 H 07/09/18 07:51 Pulse Ox 100 07/09/18 07:51 - Medical History PMH: Anxiety, Arthritis, Benign Prostatic Hyperplasia, Bipolar Disorder, Dementia, HTN, Hypercholesterolemia Family History: States: Unknown Family Hx - Social History Hx Tobacco Use: No Hx Alcohol Use: No (Former) Hx Substance Use: No - Immunization History Hx Tetanus Toxoid Vaccination: No Hx Influenza Vaccination: No Hx Pneumococcal Vaccination: No Review Of Systems Except As Marked, All Systems Reviewed And Found Negative. Musculoskeletal: Positive for: Leg Pain Physical Exam - Physical Exam Appears: Well, Non-toxic, No Acute Distress Eye(s): bilateral: Normal Inspection (conjunctiva clear) Oral Mucosa: Moist Neck: Normal ROM Chest: Symmetrical Respiratory: No Accessory Muscle Use, No Other (No respiratory distress) Neurological/Psych: Oriented x3 Gait: Steady ED Course And Treatment O2 Sat by Pulse Oximetry: 100 (RA) Pulse Ox Interpretation: Normal Medical Decision Making Medical Decision Making: Patient refusing exam of lower extremities, states he just needs a place to rest. Physical exam limited to inspection. Patient is stable for discharge home Disposition Counseled Patient/Family Regarding: Diagnosis, Need For Followup - Disposition Referrals: [facility] [Outside] [facility] [Outside] Disposition: HOME/ ROUTINE Disposition Time: 09:05 Condition: STABLE Instructions: Chronic Pain Forms: General Discharge Instructions, [facility] (Ukrainian) - POA Present On Arrival: None - Clinical Impression Clinical Impression: Homeless single person, Chronic pain of lower extremity, bilateral - Scribe Statement The provider has reviewed the documentation as recorded by the Scribe Mariluz Devin Provider Attestation: All medical record entries made by the Howie were at my direction and personally dictated by me. I have reviewed the chart and agree that the record accurately reflects my personal performance of the history, physical exam, medical decision making, and the department course for this patient. I have also personally directed, reviewed, and agree with the discharge instructions and disposition.
--- NOTE | 2018-07-09 09:08 | C.PDOC ---
Time Seen by Provider: 07/09/18 08:01 Chief Complaint (Nursing): Medical Clearance Past Medical History Vital Signs: Last Vital Signs Temp 97.6 F 07/09/18 07:51 Pulse 86 07/09/18 07:51 Resp 18 07/09/18 07:51 BP 155/89 H 07/09/18 07:51 Pulse Ox 100 07/09/18 07:51 - Medical History PMH: Anxiety, Arthritis, Benign Prostatic Hyperplasia, Bipolar Disorder, Dementia, HTN, Hypercholesterolemia Family History: States: Unknown Family Hx - Social History Hx Tobacco Use: No Hx Alcohol Use: No (Former) Hx Substance Use: No - Immunization History Hx Tetanus Toxoid Vaccination: No Hx Influenza Vaccination: No Hx Pneumococcal Vaccination: No ED Course And Treatment O2 Sat by Pulse Oximetry: 100 Disposition - Disposition Referrals: [facility] [employer] [Outside] [facility] [Outside] Disposition: HOME/ ROUTINE Disposition Time: 09:06 Condition: STABLE Instructions: Chronic Pain Forms: [facility] (Angolan), General Discharge Instructions - Clinical Impression Clinical Impression: Homeless single person, Chronic pain of lower extremity, bilateral
== END 2018-07-09 09:16 | disposition home or self-care (01) ==
LOC: C.ER 07:42
DX: G89.29 Other chronic pain (principal); M79.605 Pain in left leg; M79.604 Pain in right leg; Z59.0 Homelessness

== ENCOUNTER 2018-07-09 18:14 | Emergency (ER) | payer MEDICAID, MEDICARE ==
[2018-07-09 18:26] VITALS: BMI 29.9
--- NOTE | 2018-07-09 18:37 | C.PDOC ---
History Of Present Illness 62 y/o male, homeless, comes in looking for a place to stay and eat. States he has leg pain and needs a place to lie down. He is demanding food. Patient states he does not want to go to a custodial because he doesnt like it. He was seen in this ED earlier today and was in [place] ED 3 times today as well. Patient is a frequent visitor to the ED with chronic leg pain that has been fully evaluated. Patient has no other complaints. Time Seen by Provider: 07/09/18 18:26 Chief Complaint (Nursing): Medical Clearance History Per: Patient History/Exam Limitations: no limitations Onset/Duration Of Symptoms: Days Current Symptoms Are (Timing): Still Present Past Medical History Reviewed: Historical Data, Nursing Documentation, Vital Signs Vital Signs: Last Vital Signs Temp 97.9 F 07/09/18 18:24 Pulse 77 07/09/18 18:24 Resp 18 07/09/18 18:24 BP 139/67 07/09/18 18:24 Pulse Ox 99 07/09/18 18:24 - Medical History PMH: Anxiety, Arthritis, Benign Prostatic Hyperplasia, Bipolar Disorder, Dementia, HTN, Hypercholesterolemia Family History: States: No Known Family Hx - Social History Hx Tobacco Use: No Hx Alcohol Use: No (Former) Hx Substance Use: No - Immunization History Hx Tetanus Toxoid Vaccination: No Hx Influenza Vaccination: No Hx Pneumococcal Vaccination: No Review Of Systems Constitutional: Negative for: Fever, Chills Cardiovascular: Negative for: Chest Pain Respiratory: Negative for: Shortness of Breath Gastrointestinal: Negative for: Vomiting Musculoskeletal: Positive for: Leg Pain Physical Exam - Physical Exam Appears: Non-toxic, No Acute Distress Skin: Warm, Dry Head: Atraumatic, Normacephalic Eye(s): bilateral: Normal Inspection Oral Mucosa: Moist Neck: Supple Cardiovascular: Rhythm Regular, No Murmur Respiratory: Normal Breath Sounds, No Rales, No Rhonchi, No Wheezing Gastrointestinal/Abdominal: Soft, No Tenderness Extremity: Bilateral: Atraumatic, Normal Color And Temperature, Normal ROM Neurological/Psych: Oriented x3, Normal Speech, Normal Cognition Gait: Steady ED Course And Treatment O2 Sat by Pulse Oximetry: 99 (RA) Pulse Ox Interpretation: Normal Progress Note: Patient is provided with a meal tray. Disposition Counseled Patient/Family Regarding: Diagnosis - Disposition Disposition: HOME/ ROUTINE Disposition Time: 19:03 Condition: STABLE Instructions: Chronic Pain (DC) Forms: [email or web address] (Irish) - Clinical Impression Clinical Impression: Chronic leg pain, Malingering, Homeless - Scribe Statement The provider has reviewed the documentation as recorded by the Nellyibjayla Delgado Provider Attestation: All medical record entries made by the Nellyibjayla were at my direction and personally dictated by me. I have reviewed the chart and agree that the record accurately reflects my personal performance of the history, physical exam, medical decision making, and the department course for this patient. I have also personally directed, reviewed, and agree with the discharge instructions and disposition.
[2018-07-09 19:32] VITALS: BP 135/71; PULSE 88; RESP 16; TEMP 98.9; O2SAT 100
== END 2018-07-09 19:38 | disposition home or self-care (01) ==
LOC: C.ER 18:14
DX: G89.29 Other chronic pain (principal); M79.606 Pain in leg, unspecified; Z76.5 Malingerer [conscious simulation]; Z59.0 Homelessness

== ENCOUNTER 2018-07-10 17:21 | Emergency (ER) | payer MEDICAID, MEDICARE ==
[2018-07-10 17:39] VITALS: BP 156/89; PULSE 89; RESP 20; TEMP 97.8; O2SAT 100
--- NOTE | 2018-07-10 17:52 | C.PDOC ---
History Of Present Illness 62yo homeless male, well known to ER, comes with complaints of chronic leg pain. Patient refusing examination and states "give me a bottle so I can piss in it." Time Seen by Provider: 07/10/18 17:43 Chief Complaint (Nursing): Back Pain History Per: Patient Past Medical History Reviewed: Historical Data, Nursing Documentation, Vital Signs Vital Signs: Last Vital Signs Temp 97.8 F 07/10/18 17:37 Pulse 89 07/10/18 17:37 Resp 20 07/10/18 17:37 BP 156/89 H 07/10/18 17:37 Pulse Ox 100 07/10/18 17:37 - Medical History PMH: Anxiety, Arthritis, Benign Prostatic Hyperplasia, Bipolar Disorder, Dementia, HTN, Hypercholesterolemia Family History: States: Unknown Family Hx - Social History Hx Tobacco Use: No Hx Alcohol Use: No (Former) Hx Substance Use: No - Immunization History Hx Tetanus Toxoid Vaccination: No Hx Influenza Vaccination: No Hx Pneumococcal Vaccination: No Review Of Systems Review Of Systems: ROS cannot be obtained secondary to pt's inabilty to answer questions. (patient uncooperative) Physical Exam - Physical Exam Additional Physical Exam Comments: Patient refused exam ED Course And Treatment O2 Sat by Pulse Oximetry: 100 (RA) Pulse Ox Interpretation: Normal Medical Decision Making Medical Decision Making: Patient is alert, oriented x 3. Patient refusing a medical evaluation, will be discharged home. just dc from [facility] today Disposition - Disposition Disposition: HOME/ ROUTINE Disposition Time: 19:00 Condition: STABLE Forms: [facility] (Setswana) - Clinical Impression Clinical Impression: Malingering - Scribe Statement The provider has reviewed the documentation as recorded by the Howie Weller Provider Attestation: All medical record entries made by the Howie were at my direction and personally dictated by me. I have reviewed the chart and agree that the record accurately reflects my personal performance of the history, physical exam, medical decision making, and the department course for this patient. I have also personally directed, reviewed, and agree with the discharge instructions and disposition.
--- NOTE | 2018-07-10 17:55 | C.PDOC ---
Time Seen by Provider: 07/10/18 17:43 Chief Complaint (Nursing): Back Pain Past Medical History Vital Signs: Last Vital Signs Temp 97.8 F 07/10/18 17:37 Pulse 89 07/10/18 17:37 Resp 20 07/10/18 17:37 BP 156/89 H 07/10/18 17:37 Pulse Ox 100 07/10/18 17:37 - Medical History PMH: Anxiety, Arthritis, Benign Prostatic Hyperplasia, Bipolar Disorder, Dementia, HTN, Hypercholesterolemia Family History: States: Unknown Family Hx - Social History Hx Tobacco Use: No Hx Alcohol Use: No (Former) Hx Substance Use: No - Immunization History Hx Tetanus Toxoid Vaccination: No Hx Influenza Vaccination: No Hx Pneumococcal Vaccination: No ED Course And Treatment O2 Sat by Pulse Oximetry: 100 Disposition - Disposition Disposition: HOME/ ROUTINE Disposition Time: 17:47 Condition: STABLE - Clinical Impression Clinical Impression: Malingering
== END 2018-07-10 18:10 | disposition home or self-care (01) ==
LOC: C.ER 17:21
DX: Z76.5 Malingerer [conscious simulation] (principal); I10 Essential (primary) hypertension; E78.00 Pure hypercholesterolemia, unspecified; N40.0 Benign prostatic hyperplasia without lower urinary tract symptoms; Z59.0 Homelessness

== ENCOUNTER → 2018-07-10 | Emergency (ER) | payer MEDICARE | LOC: C.ER 22:07 ==

== ENCOUNTER 2018-07-12 05:58 | Emergency (ER) | payer MEDICARE, MEDICAID | END 2018-07-12 06:28 | disposition home or self-care (01) | LOC: C.ER 05:58 ==

== ENCOUNTER 2018-07-12 21:44 | Emergency (ER) | payer MEDICARE | END 2018-07-12 22:48 | disposition home or self-care (01) | LOC: C.ER 21:44 ==

== ENCOUNTER 2018-07-15 17:01 | Emergency (ER) | payer MEDICARE ==
[2018-07-15 17:01] VITALS: BMI 25.7
[2018-07-15 17:40] VITALS: BP 153/87; PULSE 98; RESP 18; TEMP 99; O2SAT 97
== END 2018-07-15 17:38 | disposition left against medical advice (07) ==
LOC: C.ER 17:01
DX: Z02.89 Encounter for other administrative examinations (principal); M79.605 Pain in left leg; M79.604 Pain in right leg

== ENCOUNTER 2018-07-15 20:03 | Emergency (ER) | payer MEDICARE ==
[2018-07-15 20:03] VITALS: BMI 25.7
[2018-07-15 20:07] VITALS: BP 137/92; PULSE 99; RESP 16; TEMP 97.7; O2SAT 100
--- NOTE | 2018-07-15 20:41 | C.PDOC ---
History Of Present Illness Patient presents complaining of chronic leg pain. Patient has been seen numerous places for similar, he is homeless and really only wants a place to spend the night. He has been combative and occasionally threatening staff, he ambulates around without difficulty when he thinks he is not being observed. Patient refuses to be examined, noticed to be ambulatory without difficulty. Time Seen by Provider: 07/15/18 20:37 Chief Complaint (Nursing): Lower Extremity Problem/Injury History Per: Patient History/Exam Limitations: no limitations Onset/Duration Of Symptoms: Hrs Current Symptoms Are (Timing): Still Present Severity: None Pain Scale Rating Of: 0 Recent travel outside of the [place]: No Past Medical History Vital Signs: Last Vital Signs Temp 97.7 F 07/15/18 20:06 Pulse 99 H 07/15/18 20:06 Resp 16 07/15/18 20:06 BP 137/92 H 07/15/18 20:06 Pulse Ox 100 07/15/18 20:06 - Medical History PMH: Anxiety, Arthritis, Benign Prostatic Hyperplasia, Bipolar Disorder, Dementia, HTN, Hypercholesterolemia Denies: Chronic Kidney Disease Family History: States: Unknown Family Hx - Social History Hx Tobacco Use: No Hx Alcohol Use: No (Former) Hx Substance Use: No - Immunization History Hx Tetanus Toxoid Vaccination: No Hx Influenza Vaccination: No Hx Pneumococcal Vaccination: No Review Of Systems Musculoskeletal: Positive for: Leg Pain (Chronic) ED Course And Treatment O2 Sat by Pulse Oximetry: 100 (Room air) Pulse Ox Interpretation: Normal Progress Note: Motrin administered. Medical Decision Making Medical Decision Making: Upon provider reevaluation patient is feeling better, is medically stable, and requires no further treatment in the ED at this time. Patient will be discharged home with Rx for tramadol . Counseling was provided and all questions were answered regarding diagnosis and need for follow up with the referred clinic. There is agreement to discharge plan. Return if symptoms persist or worsen. Disposition Counseled Patient/Family Regarding: Studies Performed, Diagnosis, Need For Followup - Disposition Referrals: [facility] [Outside] Disposition: HOME/ ROUTINE Disposition Time: 20:38 Condition: FAIR Prescriptions: RX: traMADol [Ultram] 50 mg PO TID PRN #10 tab PRN Reason: Pain, Severe (8-10) Instructions: Chronic Pain (DC) Forms: [facility] (Guyanese) - Clinical Impression Clinical Impression: Chronic pain of lower extremity, bilateral - Scribe Statement The provider has reviewed the documentation as recorded by the Scribe Perry Sofia All medical record entries made by the Nellyibe were at my direction and personally dictated by me. I have reviewed the chart and agree that the record accurately reflects my personal performance of the history, physical exam, medical decision making, and the department course for this patient. I have also personally directed, reviewed, and agree with the discharge instructions and disposition.
== END 2018-07-15 21:33 | disposition home or self-care (01) ==
LOC: C.ER 20:03
DX: G89.29 Other chronic pain (principal); M79.662 Pain in left lower leg; M79.661 Pain in right lower leg

== ENCOUNTER 2018-07-16 02:23 | Emergency (ER) | payer MEDICARE ==
[2018-07-15 20:03] VITALS: BMI 25.7
[2018-07-16 05:49] VITALS: BP 112/77; PULSE 98; RESP 20; TEMP 98.2; O2SAT 98
== END 2018-07-16 06:04 | disposition home or self-care (01) ==
LOC: C.ER 02:23
DX: G89.29 Other chronic pain (principal); M79.606 Pain in leg, unspecified

== ENCOUNTER 2018-07-16 08:10 | Emergency (ER) | payer MEDICARE ==
[2018-07-16 08:10] VITALS: BMI 25.7
[2018-07-16 08:15] VITALS: BP 151/93; PULSE 89; RESP 18; TEMP 97.6; O2SAT 97
--- NOTE | 2018-07-16 08:41 | C.PDOC ---
Chief Complaint (Nursing): Pain, Chronic Past Medical History Vital Signs: Last Vital Signs Temp 97.6 F 07/16/18 08:12 Pulse 89 07/16/18 08:12 Resp 18 07/16/18 08:12 BP 151/93 H 07/16/18 08:12 Pulse Ox 97 07/16/18 08:12 - Medical History PMH: Anxiety, Arthritis, Benign Prostatic Hyperplasia, Bipolar Disorder, Dementia, HTN, Hypercholesterolemia Denies: Chronic Kidney Disease Family History: States: Unknown Family Hx - Social History Hx Tobacco Use: No Hx Alcohol Use: No (Former) Hx Substance Use: No - Immunization History Hx Tetanus Toxoid Vaccination: No Hx Influenza Vaccination: No Hx Pneumococcal Vaccination: No ED Course And Treatment O2 Sat by Pulse Oximetry: 97 Disposition - Disposition
--- NOTE | 2018-07-16 09:04 | C.PDOC ---
History Of Present Illness 62 y/o homeless male presents to the ER complaining of chronic bilateral leg pain. Patient states that he would like a place to lay down. Patient reports that he would like a prescription for pain medications.Denies having weakness and numbness. Of note, patient is well known to [facility] ER because he has visited the ER multiple times for the same complaint. He was evaluated for same complaint in [facility] ER yesterday and he was prescribed Tramadol. Chief Complaint (Nursing): Pain, Chronic History Per: Patient History/Exam Limitations: no limitations Onset/Duration Of Symptoms: Days Current Symptoms Are (Timing): Still Present Severity: Moderate Past Medical History Reviewed: Historical Data, Nursing Documentation, Vital Signs Vital Signs: Last Vital Signs Temp 97.6 F 07/16/18 08:12 Pulse 89 07/16/18 08:12 Resp 18 07/16/18 08:12 BP 151/93 H 07/16/18 08:12 Pulse Ox 97 07/16/18 08:12 - Medical History PMH: Anxiety, Arthritis, Benign Prostatic Hyperplasia, Bipolar Disorder, Dementia, HTN, Hypercholesterolemia Denies: Chronic Kidney Disease Other Surgeries: Hx of surgeries Family History: States: No Known Family Hx - Social History Hx Tobacco Use: No Hx Alcohol Use: No (Former) Hx Substance Use: No - Immunization History Hx Tetanus Toxoid Vaccination: No Hx Influenza Vaccination: No Hx Pneumococcal Vaccination: No Review Of Systems Except As Marked, All Systems Reviewed And Found Negative. Constitutional: Negative for: Fever, Chills Physical Exam - Physical Exam Appears: Non-toxic, No Acute Distress, Other (awake,alert,oriented x3) Skin: Normal Color, Warm, Dry Head: Atraumatic, Normacephalic Eye(s): bilateral: Normal Inspection Oral Mucosa: Moist Neck: Supple Chest: Symmetrical Cardiovascular: Rhythm Regular Respiratory: Normal Breath Sounds, No Rales, No Rhonchi, No Wheezing Extremity: Normal ROM Neurological/Psych: Oriented x3, Normal Speech Gait: Steady ED Course And Treatment O2 Sat by Pulse Oximetry: 97 (RA) Pulse Ox Interpretation: Normal Medical Decision Making Medical Decision Making: Patient's past medical records reviewed. Patient was seen in [facility] ER and was prescribed Tylenol yesterday. Patient treated with Tylenol PO in ER. Patient has been discharged. Disposition Counseled Patient/Family Regarding: Diagnosis, Need For Followup - Disposition Referrals: [facility] [Outside] [facility] [Outside] Disposition: HOME/ ROUTINE Disposition Time: 08:56 Condition: STABLE Instructions: Chronic Pain (DC) Forms: General Discharge Instructions, [facility] (Bulgarian) - Clinical Impression Clinical Impression: Malingerer, Chronic pain, Homeless - Scribe Statement The provider has reviewed the documentation as recorded by the Howie Rios Provider Attestation: All medical record entries made by the Nellyibjayla were at my direction and personally dictated by me. I have reviewed the chart and agree that the record accurately reflects my personal performance of the history, physical exam, medical decision making, and the department course for this patient. I have also personally directed, reviewed, and agree with the discharge instructions and disposition.
== END 2018-07-16 09:27 | disposition home or self-care (01) ==
LOC: C.ER 08:10
DX: G89.29 Other chronic pain (principal); M79.605 Pain in left leg; M79.604 Pain in right leg; Z76.5 Malingerer [conscious simulation]; Z59.0 Homelessness

== ENCOUNTER 2018-07-16 17:11 | Emergency (ER) | payer MEDICARE ==
[2018-07-16 17:11] VITALS: BMI 25.7
[2018-07-16 17:34] VITALS: BP 159/92; PULSE 92; RESP 18; TEMP 97.9; O2SAT 99
--- NOTE | 2018-07-16 19:14 | C.PDOC ---
History Of Present Illness 62 y/o male presents to the ED via ambulance, requesting a place to lay down. Patient is well known to the ED for multiple visits for the same. His only complaint on arrival is chronic leg pain. Patient is refusing leg examination. He denies any new pain or changes. No other complaints. Time Seen by Provider: 07/16/18 18:50 Chief Complaint (Nursing): Pain, Chronic History Per: Patient History/Exam Limitations: no limitations Onset/Duration Of Symptoms: Days Current Symptoms Are (Timing): Still Present Past Medical History Reviewed: Historical Data, Nursing Documentation, Vital Signs Vital Signs: Last Vital Signs Temp 97.9 F 07/16/18 17:32 Pulse 92 H 07/16/18 17:32 Resp 18 07/16/18 17:32 BP 159/92 H 07/16/18 17:32 Pulse Ox 99 07/16/18 17:32 - Medical History PMH: Anxiety, Arthritis, Benign Prostatic Hyperplasia, Bipolar Disorder, Dementia, HTN, Hypercholesterolemia Denies: Chronic Kidney Disease Family History: States: Unknown Family Hx - Social History Hx Tobacco Use: No Hx Alcohol Use: No (Former) Hx Substance Use: No - Immunization History Hx Tetanus Toxoid Vaccination: No Hx Influenza Vaccination: No Hx Pneumococcal Vaccination: No Review Of Systems Except As Marked, All Systems Reviewed And Found Negative. Musculoskeletal: Positive for: Leg Pain Physical Exam - Physical Exam Appears: Non-toxic, No Acute Distress Head: Normacephalic Eye(s): bilateral: Normal Inspection Neck: Normal ROM Chest: Symmetrical Respiratory: No Accessory Muscle Use, Other (No respiratory distress) Extremity: Bilateral: Normal ROM (x4) Neurological/Psych: Oriented x3 Gait: Steady ED Course And Treatment O2 Sat by Pulse Oximetry: 99 (RA) Pulse Ox Interpretation: Normal Progress Note: Patient presents with no new complaints - states he needs a place to stay. No acute intoxication. Patient is ambulatory in the ED, yelling at staff. Will d/c patient home, advised to seek senior care. Disposition Counseled Patient/Family Regarding: Need For Followup - Disposition Disposition: HOME/ ROUTINE Disposition Time: 19:15 Condition: STABLE Forms: [facility] (Belarusian) - POA Present On Arrival: None - Clinical Impression Clinical Impression: Chronic leg pain, Malingering - Scribe Statement The provider has reviewed the documentation as recorded by the Howie Beltran Provider Attestation: All medical record entries made by the Howie were at my direction and personally dictated by me. I have reviewed the chart and agree that the record accurately reflects my personal performance of the history, physical exam, medical decision making, and the department course for this patient. I have also personally directed, reviewed, and agree with the discharge instructions and disposition.
== END 2018-07-16 19:08 | disposition home or self-care (01) ==
LOC: C.ER 17:11
DX: G89.29 Other chronic pain (principal); M79.606 Pain in leg, unspecified; Z76.5 Malingerer [conscious simulation]

== ENCOUNTER 2018-07-20 07:36 | Emergency (ER) | payer MEDICARE ==
[2018-07-20 07:37] VITALS: BMI 25.7
[2018-07-20 07:49] VITALS: BP 147/81; PULSE 82; RESP 18; TEMP 97.7; O2SAT 98
--- NOTE | 2018-07-20 08:31 | C.PDOC ---
History Of Present Illness 62 years old male with past frequent visits to ER for similar complaints presents to ER today for complaints of chronic bilateral leg pain, right greater than left. Patient is homeless and he is currently requesting food and a place to sleep. Denies fever, chills, nausea, vomiting, chest pain, or abdominal pain. Chief Complaint (Nursing): Medical Clearance History Per: Patient History/Exam Limitations: no limitations Onset/Duration Of Symptoms: Hrs Current Symptoms Are (Timing): Still Present Recent travel outside of the [place]: No Past Medical History Reviewed: Historical Data, Nursing Documentation, Vital Signs Vital Signs: Last Vital Signs Temp 97.7 F 07/20/18 07:46 Pulse 82 07/20/18 07:46 Resp 18 07/20/18 07:46 BP 147/81 07/20/18 07:46 Pulse Ox 98 07/20/18 07:46 - Medical History PMH: Anxiety, Arthritis, Benign Prostatic Hyperplasia, Bipolar Disorder, Dementia, HTN, Hypercholesterolemia Family History: States: Unknown Family Hx - Social History Hx Tobacco Use: No Hx Alcohol Use: No (Former) Hx Substance Use: No - Immunization History Hx Tetanus Toxoid Vaccination: No Hx Influenza Vaccination: No Hx Pneumococcal Vaccination: No Review Of Systems Except As Marked, All Systems Reviewed And Found Negative. Constitutional: Negative for: Fever, Chills Cardiovascular: Negative for: Chest Pain Respiratory: Negative for: Shortness of Breath Gastrointestinal: Negative for: Nausea, Vomiting, Abdominal Pain, Diarrhea Skin: Negative for: Rash Neurological: Negative for: Weakness, Numbness Physical Exam - Physical Exam Appears: Non-toxic, No Acute Distress, Unkempt, Other (Disheveled, malodorous, unkempt, verbally abusive, and aggressive. PE is limited due to patient's behavior. ) Extremity: Normal ROM (Neurologically intact), No Swelling Extremity: Bilateral: Atraumatic, Normal Color And Temperature, Normal ROM Pulses: Left Radial: Normal, Right Radial: Normal Neurological/Psych: Oriented x3, Normal Speech Gait: Steady ED Course And Treatment O2 Sat by Pulse Oximetry: 98 (RA) Pulse Ox Interpretation: Normal Medical Decision Making Medical Decision Making: Plan: * Tylenol Progress: Patient states he feels better. Denies any complaints at this time. Patient is stable for discharge and will be discharged; patient is in agreement. Return if symptoms persist or worsen. Disposition - Disposition Disposition: HOME/ ROUTINE Disposition Time: 08:29 Condition: STABLE Forms: General Discharge Instructions - POA Present On Arrival: None - Clinical Impression Clinical Impression: Chronic pain - Scribe Statement The provider has reviewed the documentation as recorded by the Nellyibjayla Dolan All medical record entries made by the Nellyibjayla were at my direction and personally dictated by me. I have reviewed the chart and agree that the record accurately reflects my personal performance of the history, physical exam, medical decision making, and the department course for this patient. I have also personally directed, reviewed, and agree with the discharge instructions and disposition.
== END 2018-07-20 09:01 | disposition home or self-care (01) ==
LOC: C.ER 07:36
DX: G89.29 Other chronic pain (principal)

== ENCOUNTER 2018-07-23 10:33 | Emergency (ER) | payer MEDICAID, MEDICARE ==
[2018-07-23 10:34] VITALS: BMI 29.9
[2018-07-23 10:46] VITALS: BP 123/78; PULSE 68; RESP 18; TEMP 98.5; O2SAT 99
--- NOTE | 2018-07-23 11:31 | C.PDOC ---
History Of Present Illness 62 year old male presents to the ED with complaint of chronic bilateral foot pain. Patient is homeless and is requesting food only. Patient has had many prior visits to the ED for the same. He states his leg pain is not greater than usual and denies new trauma/injuries, fever, chills, deformity, new weakness, sensory or vascular deficits to B/L LEs. Ambulatory at baseline gait, not in any apparent distress. Time Seen by Provider: 07/23/18 11:16 Chief Complaint (Nursing): Lower Extremity Problem/Injury History Per: Patient History/Exam Limitations: no limitations Onset/Duration Of Symptoms: Days Current Symptoms Are (Timing): Still Present Past Medical History Reviewed: Historical Data, Nursing Documentation, Vital Signs Vital Signs: Last Vital Signs Temp 98.5 F 07/23/18 10:35 Pulse 68 07/23/18 10:35 Resp 18 07/23/18 10:35 BP 123/78 07/23/18 10:35 Pulse Ox 99 07/23/18 10:35 - Medical History PMH: Anxiety, Arthritis, Benign Prostatic Hyperplasia, Bipolar Disorder, Dementia, HTN, Hypercholesterolemia Denies: Chronic Kidney Disease Surgical History: No Surg Hx Family History: States: Unknown Family Hx - Social History Hx Tobacco Use: No Hx Alcohol Use: No (Former) Hx Substance Use: No - Immunization History Hx Tetanus Toxoid Vaccination: No Hx Influenza Vaccination: No Hx Pneumococcal Vaccination: No Review Of Systems Constitutional: Negative for: Fever, Chills Cardiovascular: Negative for: Chest Pain Gastrointestinal: Negative for: Nausea, Vomiting, Abdominal Pain Musculoskeletal: Positive for: Leg Pain Physical Exam - Physical Exam Appears: Non-toxic, No Acute Distress, Unkempt, Other (Disheveled, malodorous) Skin: Normal Color, Warm, Dry Head: Atraumatic, Normacephalic Nose: No Deformity Oral Mucosa: Moist Throat: No Drooling Neck: Supple Respiratory: No Accessory Muscle Use, No Rales, No Rhonchi, No Stridor, No Wheezing Gastrointestinal/Abdominal: Soft, No Tenderness Extremity: Normal ROM, No Tenderness, No Deformity Neurological/Psych: Oriented x3, Normal Speech, Normal Cognition ED Course And Treatment O2 Sat by Pulse Oximetry: 99 (on RA) Pulse Ox Interpretation: Normal Disposition Counseled Patient/Family Regarding: Diagnosis, Need For Followup - Disposition Referrals: [facility] [Outside] Disposition: HOME/ ROUTINE Disposition Time: 11:30 Condition: STABLE Instructions: Lower Extremity Muscle Strain Forms: [facility] (Azeri) - Clinical Impression Clinical Impression: Homeless, Joint pain - 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 - Scribe Statement The provider has reviewed the documentation as recorded by the Scribe (Claire Sosa) All medical record entries made by the Scribe were at my direction and personally dictated by me. I have reviewed the chart and agree that the record accurately reflects my personal performance of the history, physical exam, medical decision making, and the department course for this patient. I have also personally directed, reviewed, and agree with the discharge instructions and disposition.
== END 2018-07-23 11:37 | disposition home or self-care (01) ==
LOC: C.ER 10:33
DX: M25.572 Pain in left ankle and joints of left foot (principal); M25.571 Pain in right ankle and joints of right foot; Z59.0 Homelessness

== ENCOUNTER 2018-07-23 16:48 | Emergency (ER) | payer MEDICARE ==
[2018-07-23 16:48] VITALS: BMI 29.9
--- NOTE | 2018-07-23 16:56 | C.PDOC ---
History Of Present Illness 62 y/o male presents to the ED with complaints of chronic leg pain. Also states he wants to lie down. Patient was seen for same complaints earlier this morning and discharged home. He denies any fever, chills, or new/worsening pain. No other complaints. Time Seen by Provider: 07/23/18 16:55 Chief Complaint (Nursing): Pain, Chronic History Per: Patient History/Exam Limitations: no limitations Onset/Duration Of Symptoms: Days Current Symptoms Are (Timing): Still Present Past Medical History Reviewed: Historical Data, Nursing Documentation, Vital Signs - Medical History PMH: Anxiety, Arthritis, Benign Prostatic Hyperplasia, Bipolar Disorder, Dementia, HTN, Hypercholesterolemia Denies: Chronic Kidney Disease Family History: States: Unknown Family Hx - Social History Hx Tobacco Use: No Hx Alcohol Use: No (Former) Hx Substance Use: No - Immunization History Hx Tetanus Toxoid Vaccination: No Hx Influenza Vaccination: No Hx Pneumococcal Vaccination: No Review Of Systems Except As Marked, All Systems Reviewed And Found Negative. Constitutional: Negative for: Fever, Chills Cardiovascular: Negative for: Chest Pain Respiratory: Negative for: Shortness of Breath Musculoskeletal: Positive for: Other (chronic pain) Neurological: Negative for: Weakness, Numbness Physical Exam - Physical Exam Appears: Non-toxic, No Acute Distress Skin: Warm, Dry Head: Atraumatic, Normacephalic Eye(s): bilateral: Normal Inspection Neck: Normal ROM Chest: Symmetrical Respiratory: No Accessory Muscle Use, Other (NARD) Extremity: Bilateral: Normal ROM (moves all extremities), Other (chronic skin changes to b/l lower legs) Pulses: Left Dorsalis Pedis: Normal, Right Dorsalis Pedis: Normal Neurological/Psych: Oriented x3 Medical Decision Making Medical Decision Making: Patient is ambulatory in the ED with steady gait. No acute complaints at this time. Plan is to d/c home, advised to seek retirement. Disposition Counseled Patient/Family Regarding: Diagnosis, Need For Followup - Disposition Referrals: [facility] [Outside] [facility] at [facility] [Outside] Disposition: HOME/ ROUTINE Disposition Time: 16:55 Condition: GOOD Forms: General Discharge Instructions, [facility] (Czech) - Clinical Impression Clinical Impression: Chronic pain, Medical assessment, Malingering - Scribe Statement The provider has reviewed the documentation as recorded by the Howie Beltran Provider Attestation: All medical record entries made by the Scribe were at my direction and personally dictated by me. I have reviewed the chart and agree that the record accurately reflects my personal performance of the history, physical exam, medical decision making, and the department course for this patient. I have also personally directed, reviewed, and agree with the discharge instructions and disposition.
[2018-07-23 16:58] VITALS: BP 132/71; PULSE 72; TEMP 97.4; O2SAT 98
[2018-07-23 17:03] VITALS: RESP 20
== END 2018-07-23 17:02 | disposition home or self-care (01) ==
LOC: C.ER 16:48
DX: G89.29 Other chronic pain (principal); Z76.5 Malingerer [conscious simulation]

== ENCOUNTER 2018-07-23 17:54 | Emergency (ER) | payer MEDICARE ==
[2018-07-23 17:54] VITALS: BMI 29.9
== END 2018-07-23 18:08 | disposition left against medical advice (07) ==
LOC: C.ER 17:54
DX: Z02.89 Encounter for other administrative examinations (principal); F19.10 Other psychoactive substance abuse, uncomplicated

== ENCOUNTER 2018-07-23 18:48 | Inpatient (IN) | payer MEDICARE ==
[2018-07-23 18:48] VITALS: BMI 29.9
--- NOTE | 2018-07-23 19:26 | C.PDOC ---
History Of Present Illness Patient's 3rd visit today complaining of his usual chronic bilateral foot pain. He refused to go to the long term, he is malingering and wants to spend the night here. Denies any other complaints. Time Seen by Provider: 07/23/18 19:25 Chief Complaint (Nursing): Lower Extremity Problem/Injury History Per: Patient History/Exam Limitations: no limitations Onset/Duration Of Symptoms: Days Current Symptoms Are (Timing): Still Present Severity: None Pain Scale Rating Of: 0 Recent travel outside of the [place]: No Past Medical History Reviewed: Historical Data, Nursing Documentation, Vital Signs Vital Signs: Last Vital Signs Temp 97.8 F 07/23/18 18:53 Pulse 86 07/23/18 18:53 Resp 16 07/23/18 18:53 BP 167/78 H 07/23/18 18:53 Pulse Ox 98 07/23/18 18:53 - Medical History PMH: Anxiety, Arthritis, Benign Prostatic Hyperplasia, Bipolar Disorder, Dementia, HTN, Hypercholesterolemia Denies: Chronic Kidney Disease Family History: States: No Known Family Hx - Social History Hx Tobacco Use: No Hx Alcohol Use: No (Former) Hx Substance Use: No - Immunization History Hx Tetanus Toxoid Vaccination: No Hx Influenza Vaccination: No Hx Pneumococcal Vaccination: No Review Of Systems Constitutional: Negative for: Fever, Chills Cardiovascular: Negative for: Chest Pain, Palpitations Respiratory: Negative for: Cough, Shortness of Breath Gastrointestinal: Negative for: Nausea, Vomiting Musculoskeletal: Positive for: Foot Pain (Chronic) Neurological: Negative for: Weakness, Numbness Physical Exam - Physical Exam Appears: Non-toxic Skin: Warm, Dry Head: Normacephalic Oral Mucosa: Moist Chest: Symmetrical, No Tenderness Cardiovascular: Rhythm Regular Respiratory: No Rales, No Rhonchi, No Wheezing Gastrointestinal/Abdominal: Soft, No Tenderness Extremity: Pedal Edema (Mild trace), Other (Chronic vascular changes to lower extremities) Neurological/Psych: Oriented x3 Gait: Steady ED Course And Treatment O2 Sat by Pulse Oximetry: 98 (Room air) Pulse Ox Interpretation: Normal Disposition Counseled Patient/Family Regarding: Studies Performed, Diagnosis - Disposition Disposition Time: 19:26 Condition: FAIR Forms: [employer] [facility] ([place]) - Clinical Impression Clinical Impression: Homeless single person, Medical assessment, Chronic pain of lower extremity, bilateral - Scribe Statement The provider has reviewed the documentation as recorded by the Scribe Perry Sofia All medical record entries made by the Scribe were at my direction and personally dictated by me. I have reviewed the chart and agree that the record accurately reflects my personal performance of the history, physical exam, medical decision making, and the department course for this patient. I have also personally directed, reviewed, and agree with the discharge instructions and disposition. Physician Patient Turnover Patient Signed Over To: Arnol Almanza Handoff Comments: pending disposition to to [facility]
[2018-07-24 08:28] LABS: BASO % 0.6 % (0.0-2.0); EOS # 0.2 K/uL (0.0-0.7); EOS % 3.7 % (0.0-4.0); LYMPH # 2.2 K/uL (1.0-4.3); LYMPH % 50.1 % (20.0-40.0); MEAN CELL VOLUME 87.4 fL (80.0-94.0); MEAN CORPUSCULAR HEMOGLOBIN 28.2 pg (27.0-31.0); MEAN CORPUSCULAR HGB CONC 32.3 g/dL (33.0-37.0); MEAN PLATELET VOLUME 7.1 fL (7.2-11.7); MONO # 0.4 K/uL (0.0-0.8); MONO % 9.6 % (0.0-10.0); NEUT # 1.5 K/uL (1.8-7.0); RBC 4.22 Mil/uL (4.40-5.90); RED CELL DISTRIBUTION WIDTH 15.3 % (11.5-14.5); WHITE BLOOD COUNT 4.3 K/uL (4.8-10.8)
[2018-07-24 08:29] LABS: HEMOGLOBIN 11.9 g/dL (12.0-18.0)
[2018-07-24 08:36] LABS: PROTHROMBIN TIME 10.9 SECONDS (9.7-12.2)
[2018-07-24 08:49] LABS: ALB/GLOB RATIO 1.1 (1.0-2.1); ALBUMIN 3.7 g/dL (3.5-5.0); BLOOD UREA NITROGEN 15 mg/dL (9-20); CALCIUM 8.5 mg/dl (8.6-10.4); GFR NON-AFRICAN AMERICAN > 60
[2018-07-24 09:04] LABS: ALT/SGPT 20 U/L (21-72); AST/SGOT 28 U/L (17-59)
--- NOTE | 2018-07-24 12:59 | CP.PCM.HP ---
Past Patient History - Infectious Disease Hx of Infectious Diseases: None - Past Medical History & Family History Past Medical History?: Yes - Past Social History Smoking Status: Former Smoker - CARDIAC Hx Hypercholesterolemia: Yes Hx Hypertension: Yes - PULMONARY Hx Respiratory Disorders: No - NEUROLOGICAL Hx Dementia: Yes - HEENT Hx HEENT Problems: No - RENAL Hx Chronic Kidney Disease: No - ENDOCRINE/METABOLIC Hx Endocrine Disorders: No - HEMATOLOGICAL/ONCOLOGICAL Hx Blood Disorders: No - INTEGUMENTARY Hx Dermatological Problems: No - MUSCULOSKELETAL/RHEUMATOLOGICAL Hx Arthritis: Yes - GASTROINTESTINAL Hx Gastrointestinal Disorders: No - GENITOURINARY/GYNECOLOGICAL Hx Genitourinary Disorders: Yes - PSYCHIATRIC Hx Anxiety: Yes Hx Bipolar Disorder: Yes Hx Substance Use: No - SURGICAL HISTORY Hx Amputation: Yes - ANESTHESIA Hx Anesthesia: Yes Hx Anesthesia Reactions: No Hx Malignant Hyperthermia: No Meds Allergies/Adverse Reactions: Allergies Allergy/AdvReac Type Severity Reaction Status Date / Time No Known Allergies Allergy Verified 07/23/18 18:56 Physical Exam - Constitutional Appears: Well - Head Exam Head Exam: ATRAUMATIC, NORMAL INSPECTION, NORMOCEPHALIC - Eye Exam Eye Exam: EOMI, Normal appearance, PERRL Pupil Exam: NORMAL ACCOMODATION, PERRL - ENT Exam ENT Exam: Mucous Membranes Moist, Normal Exam - Neck Exam Neck exam: Positive for: Normal Inspection - Respiratory Exam Respiratory Exam: Decreased Breath Sounds - Cardiovascular Exam Cardiovascular Exam: REGULAR RHYTHM, +S1, +S2 - GI/Abdominal Exam GI & Abdominal Exam: Diminished Bowel Sounds, Soft - Rectal Exam Rectal Exam: Deferred Results - Vital Signs Recent Vital Signs: Last Vital Signs Temp 98.1 F 07/24/18 08:06 Pulse 70 07/24/18 08:06 Resp 18 07/24/18 08:06 BP 106/60 07/24/18 08:06 Pulse Ox 100 07/24/18 08:06 - Labs Result Diagrams: 07/24/18 08:25 07/24/18 08:25 Labs: Laboratory Results - last 24 hr 07/24/18 07/24/18 07/24/18 08:25 08:25 08:25 WBC 4.3 L RBC 4.22 L Hgb 11.9 L D Hct 36.9 MCV 87.4 MCH 28.2 MCHC 32.3 L RDW 15.3 H Plt Count 216 MPV 7.1 L Neut % (Auto) 36.0 L Lymph % (Auto) 50.1 H Glades % (Auto) 9.6 Eos % (Auto) 3.7 Baso % (Auto) 0.6 Neut # (Auto) 1.5 L Lymph # (Auto) 2.2 Glades # (Auto) 0.4 Eos # (Auto) 0.2 Baso # (Auto) 0.0 PT 10.9 INR 1.0 APTT 29 Sodium 137 Potassium 3.9 Chloride 102 Carbon Dioxide 29 Anion Gap 10 BUN 15 Creatinine 1.1 Est GFR ( Amer) > 60 Est GFR (Non-Af Amer) > 60 Random Glucose 101 Calcium 8.5 L Total Bilirubin 0.5 AST 28 ALT 20 L Alkaline Phosphatase 113 Total Protein 7.0 Albumin 3.7 Globulin 3.3 Albumin/Globulin Ratio 1.1
[2018-07-24] MEDS: Cilostazol 100 mg Tab UD PO SCH (21:43)
[2018-07-25] MEDS: Cilostazol 100 mg Tab UD PO SCH ×3 (09:15→23:26)
[2018-07-25] MEDS: Enoxaparin 40 mg Syringe SC SCH ×2 (09:16→09:34)
--- NOTE | 2018-07-25 19:31 | CP.PCM.PN ---
Subjective - Date & Time of Evaluation Date of Evaluation: 07/25/18 Time of Evaluation: 09:30 - Subjective Subjective: clinically same Objective - Vital Signs/Intake and Output Vital Signs (last 24 hours): Temp Pulse Resp BP Pulse Ox 97.8 F 84 18 133/70 98 07/25/18 15:25 07/25/18 15:25 07/25/18 15:25 07/25/18 15:25 07/25/18 15:25 Intake and Output: 07/25/18 07/26/18 18:59 06:59 Output Total 300 Balance -300 - Medications Medications: Current Medications Acetaminophen (Tylenol 325mg Tab) 650 mg PO Q6 PRN PRN Reason: Fever >100.4 F Aspirin (Ecotrin) 81 mg PO DAILY [facility] Last Admin: 07/25/18 09:31 Dose: Not Given Cilostazol (Pletal) 100 mg PO Q12 [facility] Last Admin: 07/25/18 09:35 Dose: Not Given Enoxaparin Sodium (Lovenox) 40 mg SC DAILY [facility] Last Admin: 07/25/18 09:34 Dose: Not Given Hydrochlorothiazide (Hydrodiuril) 25 mg PO DAILY [facility] Last Admin: 07/25/18 09:33 Dose: Not Given Lisinopril (Zestril) 20 mg PO DAILY [facility] Last Admin: 07/25/18 09:35 Dose: Not Given Rosuvastatin Calcium (Crestor) [address] [facility] Last Admin: 07/24/18 21:43 Dose: 5 mg Tamsulosin HCl (Flomax) 0.[address] [facility] Last Admin: 07/24/18 21:43 Dose: 0.4 mg - Labs Labs: 07/24/18 08:25 07/24/18 08:25 PT 10.9 SECONDS (9.7-12.2) 07/24/18 08:25 INR 1.0 07/24/18 08:25 APTT 29 SECONDS (21-34) 07/24/18 08:25 - Constitutional Appears: Well - Head Exam Head Exam: ATRAUMATIC, NORMAL INSPECTION, NORMOCEPHALIC - Eye Exam Eye Exam: EOMI, Normal appearance, PERRL Pupil Exam: NORMAL ACCOMODATION, PERRL - ENT Exam ENT Exam: Mucous Membranes Moist, Normal Exam - Neck Exam Neck Exam: Full ROM, Normal Inspection. absent: Lymphadenopathy - Respiratory Exam Respiratory Exam: Decreased Breath Sounds - Cardiovascular Exam Cardiovascular Exam: REGULAR RHYTHM, +S1, +S2 - GI/Abdominal Exam GI & Abdominal Exam: Soft, Diminished Bowel Sounds - Rectal Exam Rectal Exam: Deferred
[2018-07-26] MEDS: Enoxaparin 40 mg Syringe SC SCH (11:30)
[2018-07-26] MEDS: Cilostazol 100 mg Tab UD PO SCH ×2 (11:30→22:29)
--- NOTE | 2018-07-26 15:36 | CP.PCM.PN ---
Subjective - Date & Time of Evaluation Date of Evaluation: 07/26/18 Time of Evaluation: 09:15 - Subjective Subjective: clinically same Objective - Vital Signs/Intake and Output Vital Signs (last 24 hours): Temp Pulse Resp BP Pulse Ox 98.4 F 72 20 136/76 98 07/26/18 07:15 07/26/18 07:15 07/26/18 07:15 07/26/18 07:15 07/26/18 07:15 Intake and Output: 07/26/18 07/26/18 06:59 18:59 Intake Total 360 Output Total 1025 120 Balance -665 -120 - Medications Medications: Current Medications Acetaminophen (Tylenol 325mg Tab) 650 mg PO Q6 PRN PRN Reason: Fever >100.4 F Aspirin (Ecotrin) 81 mg PO DAILY [facility] Last Admin: 07/26/18 11:29 Dose: Not Given Cilostazol (Pletal) 100 mg PO Q12 [facility] Last Admin: 07/26/18 11:30 Dose: Not Given Enoxaparin Sodium (Lovenox) 40 mg SC DAILY [facility] Last Admin: 07/26/18 11:30 Dose: Not Given Hydrochlorothiazide (Hydrodiuril) 25 mg PO DAILY [facility] Last Admin: 07/26/18 11:29 Dose: Not Given Lisinopril (Zestril) 20 mg PO DAILY [facility] Last Admin: 07/26/18 11:30 Dose: Not Given Rosuvastatin Calcium (Crestor) 5 mg PO [facility] Last Admin: 07/25/18 23:26 Dose: Not Given Tamsulosin HCl (Flomax) 0.4 mg PO [facility] Last Admin: 07/25/18 23:26 Dose: Not Given - Labs Labs: 07/24/18 08:25 07/24/18 08:25 PT 10.9 SECONDS (9.7-12.2) 07/24/18 08:25 INR 1.0 07/24/18 08:25 APTT 29 SECONDS (21-34) 07/24/18 08:25 - Constitutional Appears: Well - Head Exam Head Exam: ATRAUMATIC, NORMAL INSPECTION, NORMOCEPHALIC - Eye Exam Eye Exam: EOMI, Normal appearance, PERRL Pupil Exam: NORMAL ACCOMODATION, PERRL - ENT Exam ENT Exam: Mucous Membranes Moist, Normal Exam - Neck Exam Neck Exam: Full ROM, Normal Inspection. absent: Lymphadenopathy - Respiratory Exam Respiratory Exam: Decreased Breath Sounds - Cardiovascular Exam Cardiovascular Exam: REGULAR RHYTHM, +S1, +S2 - GI/Abdominal Exam GI & Abdominal Exam: Soft, Diminished Bowel Sounds - Rectal Exam Rectal Exam: Deferred
[2018-07-27] MEDS: Enoxaparin 40 mg Syringe SC SCH (09:24)
[2018-07-27] MEDS: Cilostazol 100 mg Tab UD PO SCH ×2 (09:24→22:14)
--- NOTE | 2018-07-27 17:06 | CP.PCM.PN ---
Subjective - Date & Time of Evaluation Date of Evaluation: 07/27/18 Time of Evaluation: 10:15 - Subjective Subjective: clinically same Objective - Vital Signs/Intake and Output Vital Signs (last 24 hours): Temp Pulse Resp BP Pulse Ox 98.4 F 73 20 134/77 98 07/27/18 07:15 07/27/18 07:15 07/27/18 07:15 07/27/18 07:15 07/27/18 07:15 Intake and Output: 07/27/18 07/27/18 06:59 18:59 Intake Total 600 Output Total 900 Balance -300 - Medications Medications: Current Medications Acetaminophen (Tylenol 325mg Tab) 650 mg PO Q6 PRN PRN Reason: Fever >100.4 F Aspirin (Ecotrin) 81 mg PO DAILY [facility] Last Admin: 07/27/18 09:24 Dose: Not Given Cilostazol (Pletal) 100 mg PO Q12 [facility] Last Admin: 07/27/18 09:24 Dose: Not Given Enoxaparin Sodium (Lovenox) 40 mg SC DAILY [facility] Last Admin: 07/27/18 09:24 Dose: Not Given Hydrochlorothiazide (Hydrodiuril) 25 mg PO DAILY [facility] Last Admin: 07/27/18 09:24 Dose: Not Given Lisinopril (Zestril) 20 mg PO DAILY [facility] Last Admin: 07/27/18 09:24 Dose: Not Given Rosuvastatin Calcium (Crestor) 5 mg PO [facility] Last Admin: 07/26/18 22:29 Dose: Not Given Tamsulosin HCl (Flomax) 0.4 mg PO [facility] Last Admin: 07/26/18 22:29 Dose: Not Given - Labs Labs: 07/24/18 08:25 07/24/18 08:25 PT 10.9 SECONDS (9.7-12.2) 07/24/18 08:25 INR 1.0 07/24/18 08:25 APTT 29 SECONDS (21-34) 07/24/18 08:25 - Constitutional Appears: Well - Head Exam Head Exam: ATRAUMATIC, NORMAL INSPECTION, NORMOCEPHALIC - Eye Exam Eye Exam: EOMI, Normal appearance, PERRL Pupil Exam: NORMAL ACCOMODATION, PERRL - ENT Exam ENT Exam: Mucous Membranes Moist, Normal Exam - Neck Exam Neck Exam: Full ROM, Normal Inspection. absent: Lymphadenopathy - Respiratory Exam Respiratory Exam: Decreased Breath Sounds - Cardiovascular Exam Cardiovascular Exam: REGULAR RHYTHM, +S1, +S2 - GI/Abdominal Exam GI & Abdominal Exam: Soft, Diminished Bowel Sounds - Rectal Exam Rectal Exam: Deferred
[2018-07-28 01:00] VITALS: RESP 20
[2018-07-28] MEDS: Enoxaparin 40 mg Syringe SC SCH (10:03)
[2018-07-28] MEDS: Cilostazol 100 mg Tab UD PO SCH ×2 (10:03→22:00)
--- NOTE | 2018-07-28 19:10 | CP.PCM.PN ---
Subjective - Date & Time of Evaluation Date of Evaluation: 07/28/18 Time of Evaluation: 10:30 - Subjective Subjective: clinically same Objective - Vital Signs/Intake and Output Vital Signs (last 24 hours): Temp Pulse Resp BP Pulse Ox 97 F L 76 20 127/68 97 07/28/18 15:00 07/28/18 15:00 07/28/18 15:00 07/28/18 15:00 07/28/18 15:00 Intake and Output: 07/28/18 07/29/18 18:59 06:59 Intake Total 400 Output Total 700 Balance -300 - Medications Medications: Current Medications Acetaminophen (Tylenol 325mg Tab) 650 mg PO Q6 PRN PRN Reason: Fever >100.4 F Aspirin (Ecotrin) 81 mg PO DAILY [facility] Last Admin: 07/28/18 10:03 Dose: Not Given Cilostazol (Pletal) 100 mg PO Q12 [facility] Last Admin: 07/28/18 10:03 Dose: Not Given Enoxaparin Sodium (Lovenox) 40 mg SC DAILY [facility] Last Admin: 07/28/18 10:03 Dose: Not Given Hydrochlorothiazide (Hydrodiuril) 25 mg PO DAILY [facility] Last Admin: 07/28/18 10:03 Dose: Not Given Lisinopril (Zestril) 20 mg PO DAILY [facility] Last Admin: 07/28/18 10:03 Dose: Not Given Rosuvastatin Calcium (Crestor) 5 mg PO [facility] Last Admin: 07/27/18 22:14 Dose: Not Given Tamsulosin HCl (Flomax) 0.4 mg PO [facility] Last Admin: 07/27/18 22:14 Dose: Not Given - Labs Labs: 07/24/18 08:25 07/24/18 08:25 PT 10.9 SECONDS (9.7-12.2) 07/24/18 08:25 INR 1.0 07/24/18 08:25 APTT 29 SECONDS (21-34) 07/24/18 08:25 - Constitutional Appears: Well - Head Exam Head Exam: ATRAUMATIC, NORMAL INSPECTION, NORMOCEPHALIC - Eye Exam Eye Exam: EOMI, Normal appearance, PERRL - ENT Exam ENT Exam: Mucous Membranes Moist, Normal Exam - Neck Exam Neck Exam: Full ROM, Normal Inspection. absent: Lymphadenopathy - Respiratory Exam Respiratory Exam: Decreased Breath Sounds - Cardiovascular Exam Cardiovascular Exam: REGULAR RHYTHM, +S1, +S2 - GI/Abdominal Exam GI & Abdominal Exam: Soft, Diminished Bowel Sounds - Rectal Exam Rectal Exam: Deferred
[2018-07-29] MEDS: Enoxaparin 40 mg Syringe SC SCH ×2 (09:27→09:29)
[2018-07-29] MEDS: Cilostazol 100 mg Tab UD PO SCH ×3 (09:27→23:08)
--- NOTE | 2018-07-29 14:53 | CP.PCM.PN ---
Subjective - Date & Time of Evaluation Date of Evaluation: 07/29/18 Time of Evaluation: 10:45 - Subjective Subjective: clinically same Objective - Vital Signs/Intake and Output Vital Signs (last 24 hours): Temp Pulse Resp BP Pulse Ox 97.9 F 69 20 121/63 99 07/29/18 09:08 07/29/18 09:08 07/29/18 09:08 07/29/18 09:08 07/29/18 09:08 - Medications Medications: Current Medications Acetaminophen (Tylenol 325mg Tab) 650 mg PO Q6 PRN PRN Reason: Fever >100.4 F Aspirin (Ecotrin) 81 mg PO DAILY [facility] Last Admin: 07/29/18 09:30 Dose: Not Given Cilostazol (Pletal) 100 mg PO Q12 [facility] Last Admin: 07/29/18 09:30 Dose: Not Given Enoxaparin Sodium (Lovenox) 40 mg SC DAILY [facility] Last Admin: 07/29/18 09:29 Dose: Not Given Hydrochlorothiazide (Hydrodiuril) 25 mg PO DAILY [facility] Last Admin: 07/29/18 09:29 Dose: Not Given Lisinopril (Zestril) 20 mg PO DAILY [facility] Last Admin: 07/29/18 09:30 Dose: Not Given Rosuvastatin Calcium (Crestor) 5 mg PO HS [facility] Last Admin: 07/28/18 22:00 Dose: Not Given Tamsulosin HCl (Flomax) 0.4 mg PO HS [facility] Last Admin: 07/28/18 22:00 Dose: Not Given - Labs Labs: 07/24/18 08:25 07/24/18 08:25 PT 10.9 SECONDS (9.7-12.2) 07/24/18 08:25 INR 1.0 07/24/18 08:25 APTT 29 SECONDS (21-34) 07/24/18 08:25
[2018-07-30 08:59] VITALS: BP 130/83; PULSE 68; TEMP 97.1; O2SAT 100
[2018-07-30] MEDS: Enoxaparin 40 mg Syringe SC SCH (09:43)
[2018-07-30] MEDS: Cilostazol 100 mg Tab UD PO SCH (09:43)
== END 2018-07-30 15:56 | disposition home or self-care (01) | DRG 556 ==
LOC: C.ER 18:48 → C.9E 07-24 09:05 → C.6T 07-24 13:13 → OBSVTOIN 07-24 13:43
PROVIDERS: ADMIT Internal Medicine Nephrology; ATTEND Internal Medicine Nephrology
DX: M79.672 Pain in left foot (principal); M79.671 Pain in right foot; G89.29 Other chronic pain; Z59.0 Homelessness; E78.00 Pure hypercholesterolemia, unspecified; F03.90 Unspecified dementia, unspecified severity, without behavioral disturbance, psychotic disturbance, mood disturbance, and anxiety; I10 Essential (primary) hypertension; N40.0 Benign prostatic hyperplasia without lower urinary tract symptoms; Z87.891 Personal history of nicotine dependence; F31.9 Bipolar disorder, unspecified; R26.2 Difficulty in walking, not elsewhere classified

== ENCOUNTER 2018-08-01 22:42 | Emergency (ER) | payer MEDICARE ==
[2018-08-01 22:43] VITALS: BMI 29.9
--- NOTE | 2018-08-01 23:13 | C.PDOC ---
History Of Present Illness 62 year old male is brought to the ED by EMS for evaluation. Patient is well known to the ED with multiple prior visits for the same presentation. Patient requesting a place to stay the night. Patient denies SI/HI, hallucinations, other medical complaints at this time. Time Seen by Provider: 08/01/18 22:48 Chief Complaint (Nursing): Lower Extremity Problem/Injury History Per: Patient, EMS History/Exam Limitations: no limitations Onset/Duration Of Symptoms: Hrs Current Symptoms Are (Timing): Still Present Recent travel outside of the [place]: No Additional History Per: Patient Past Medical History Reviewed: Historical Data, Nursing Documentation, Vital Signs Vital Signs: Last Vital Signs Temp 97.4 F L 08/01/18 22:48 Pulse 76 08/01/18 22:48 Resp 16 08/01/18 22:48 BP 132/76 08/01/18 22:48 Pulse Ox 100 08/01/18 22:48 - Medical History PMH: Anxiety, Arthritis, Benign Prostatic Hyperplasia, Bipolar Disorder, Dementia, HTN, Hypercholesterolemia Denies: Chronic Kidney Disease Surgical History: No Surg Hx Family History: States: Unknown Family Hx - Social History Hx Tobacco Use: No Hx Alcohol Use: No (former) Hx Substance Use: No - Immunization History Hx Tetanus Toxoid Vaccination: No Hx Influenza Vaccination: No Hx Pneumococcal Vaccination: No Review Of Systems Constitutional: Negative for: Fever, Chills Cardiovascular: Negative for: Chest Pain Respiratory: Negative for: Shortness of Breath Gastrointestinal: Negative for: Nausea, Vomiting, Abdominal Pain Skin: Negative for: Rash Neurological: Negative for: Weakness, Numbness Psych: Negative for: Depression, Suicidal ideation Physical Exam - Physical Exam Appears: Non-toxic, No Acute Distress Skin: Warm, Dry Head: Normacephalic Eye(s): bilateral: Normal Inspection Neck: Supple Chest: Symmetrical Cardiovascular: Rhythm Regular Respiratory: No Rales, No Rhonchi, No Wheezing Gastrointestinal/Abdominal: Soft, No Tenderness Extremity: Bilateral: Atraumatic, Normal Color And Temperature, Normal ROM Neurological/Psych: Oriented x3, Normal Speech, Normal Cognition Gait: Steady ED Course And Treatment O2 Sat by Pulse Oximetry: 100 (ON RA) Pulse Ox Interpretation: Normal Reevaluation Time: 05:54 Reassessment Condition: Improved Disposition Counseled Patient/Family Regarding: Studies Performed, Diagnosis, Need For Followup - Disposition Referrals: [facility] [Outside] Disposition: HOME/ ROUTINE Disposition Time: 05:54 Condition: FAIR Forms: [facility] (Arabic), General Discharge Instructions - Clinical Impression Clinical Impression: Medical assessment - Scribe Statement The provider has reviewed the documentation as recorded by the Scribe Darrion Valencia All medical record entries made by the Scribe were at my direction and personally dictated by me. I have reviewed the chart and agree that the record accurately reflects my personal performance of the history, physical exam, medical decision making, and the department course for this patient. I have also personally directed, reviewed, and agree with the discharge instructions and disposition.
[2018-08-02 04:56] VITALS: BP 128/71; PULSE 82; RESP 20; TEMP 98
[2018-08-02 05:55] VITALS: O2SAT 100
== END 2018-08-02 06:18 | disposition home or self-care (01) ==
LOC: C.ER 22:42
DX: Z00.00 Encounter for general adult medical examination without abnormal findings (principal); E78.00 Pure hypercholesterolemia, unspecified; I10 Essential (primary) hypertension; N40.0 Benign prostatic hyperplasia without lower urinary tract symptoms; F03.90 Unspecified dementia, unspecified severity, without behavioral disturbance, psychotic disturbance, mood disturbance, and anxiety; F31.9 Bipolar disorder, unspecified

== ENCOUNTER 2018-08-02 07:18 | Emergency (ER) | payer MEDICARE ==
[2018-08-02 07:18] VITALS: BMI 29.9
--- NOTE | 2018-08-02 07:49 | C.PDOC ---
History Of Present Illness 62 year old male presents to the ED complaining of chronic pain. The patient is well known to the ED with multiple prior visits for the same presentation. He denies any fever, chills, numbness, weakness, and any other medical complaints at this time. Time Seen by Provider: 08/02/18 07:31 Chief Complaint (Nursing): Medical Clearance History Per: Patient History/Exam Limitations: no limitations Recent travel outside of the [place]: No Past Medical History Reviewed: Historical Data, Nursing Documentation, Vital Signs - Medical History PMH: Anxiety, Arthritis, Benign Prostatic Hyperplasia, Bipolar Disorder, Dementia, HTN, Hypercholesterolemia Denies: Chronic Kidney Disease Family History: States: Unknown Family Hx - Social History Hx Tobacco Use: No Hx Alcohol Use: No (former) Hx Substance Use: No - Immunization History Hx Tetanus Toxoid Vaccination: No Hx Influenza Vaccination: No Hx Pneumococcal Vaccination: No Review Of Systems Except As Marked, All Systems Reviewed And Found Negative. Constitutional: Negative for: Fever, Chills Musculoskeletal: Positive for: Leg Pain Neurological: Negative for: Weakness, Numbness, Incoordination Physical Exam - Physical Exam Appears: No Acute Distress Skin: Warm, Dry, No Rash Head: Atraumatic, Normacephalic Eye(s): bilateral: Normal Inspection, PERRL, EOMI Oral Mucosa: Moist Neck: Normal ROM, Supple Chest: Symmetrical Cardiovascular: Rhythm Regular, No Friction Rub, No Murmur Respiratory: Normal Breath Sounds, No Rales, No Rhonchi, No Wheezing Gastrointestinal/Abdominal: Normal Exam, Soft, No Tenderness Back: Normal Inspection, No CVA Tenderness Extremity: Normal ROM (x4), No Deformity, No Swelling Extremity: Bilateral: Normal Color And Temperature Neurological/Psych: Oriented x3, Normal Speech, Normal Motor, Normal Sensation Gait: Steady Medical Decision Making Medical Decision Making: Progress/Update: Patient is ambulatory in the ED with steady gait. No acute complaints at this time. Patient is stable for discharge home, advised to seek longterm. Old records reviewed, and the patient was seen in the ED for similar symptoms and was just discharged 1 hour ago. Disposition - Disposition Disposition: HOME/ ROUTINE Disposition Time: 08:01 Condition: GOOD Additional Instructions: Return if worsened. Instructions: Muscle and Bone Pain (DC) Forms: [employer] ([place]ian) - Clinical Impression Clinical Impression: Homeless single person, Medical assessment, Joint pain - PA / UNIVERSITY COUNSELOR / Resident Statement MD/DO has reviewed & agrees with the documentation as recorded. - Scribe Statement The provider has reviewed the documentation as recorded by the Scribe (Katharine Crow) All medical record entries made by the Scribe were at my direction and personally dictated by me. I have reviewed the chart and agree that the record accurately reflects my personal performance of the history, physical exam, medical decision making, and the department course for this patient. I have also personally directed, reviewed, and agree with the discharge instructions and disposition.
== END 2018-08-02 08:11 | disposition home or self-care (01) ==
LOC: C.ER 07:18
DX: M25.50 Pain in unspecified joint (principal); Z59.0 Homelessness

== ENCOUNTER 2018-08-03 10:19 | Emergency (ER) | payer MEDICARE ==
[2018-08-03 10:19] VITALS: BMI 29.9
--- NOTE | 2018-08-03 10:23 | C.PDOC ---
History Of Present Illness 62 y/o male presents to the ED with complaints of chronic leg pain. Also states he wants to rest and lie down. Patient is well known to the ED. He denies any fever, chills, or new/worsening pain. No other complaints. Time Seen by Provider: 08/03/18 10:22 History Per: Patient History/Exam Limitations: no limitations Onset/Duration Of Symptoms: Days Current Symptoms Are (Timing): Still Present Reports Recently: Seen In ED Additional History Per: Prior Records Past Medical History Reviewed: Historical Data, Nursing Documentation, Vital Signs - Medical History PMH: Anxiety, Arthritis, Benign Prostatic Hyperplasia, Bipolar Disorder, Dementia, HTN, Hypercholesterolemia Denies: Chronic Kidney Disease Other Surgeries: Hx of surgeries Family History: States: No Known Family Hx - Social History Hx Tobacco Use: No Hx Alcohol Use: No (former) Hx Substance Use: No - Immunization History Hx Tetanus Toxoid Vaccination: No Hx Influenza Vaccination: No Hx Pneumococcal Vaccination: No Review Of Systems Except As Marked, All Systems Reviewed And Found Negative. Constitutional: Negative for: Fever, Chills Cardiovascular: Negative for: Chest Pain Respiratory: Negative for: Shortness of Breath Musculoskeletal: Positive for: Other (Chronic leg pain) Neurological: Negative for: Weakness, Numbness Physical Exam - Physical Exam Appears: Non-toxic, No Acute Distress Skin: Warm, Dry Head: Normacephalic Eye(s): bilateral: Normal Inspection Nose: Normal Oral Mucosa: Moist Chest: Symmetrical Cardiovascular: Rhythm Regular Respiratory: Other (NARD) Extremity: Normal ROM, Other (chronic skin changes to b/l lower legs) Neurological/Psych: Oriented x3, Normal Speech Gait: Steady ED Course And Treatment O2 Sat by Pulse Oximetry: 100 (RA) Medical Decision Making Medical Decision Making: Patient is ambulatory in the ED with steady gait. No acute complaints at this time. Plan is to d/c home, advised to seek longterm. Disposition Counseled Patient/Family Regarding: Diagnosis, Need For Followup - Disposition Referrals: [facility] [Outside] [facility] [Outside] Disposition: HOME/ ROUTINE Disposition Time: 10:23 Condition: GOOD Instructions: Chronic Pain (DC) - Clinical Impression Clinical Impression: Chronic pain, Malingerer - Scribe Statement The provider has reviewed the documentation as recorded by the Scribjayla Marquez All medical record entries made by the Scribe were at my direction and personally dictated by me. I have reviewed the chart and agree that the record accurately reflects my personal performance of the history, physical exam, medical decision making, and the department course for this patient. I have also personally directed, reviewed, and agree with the discharge instructions and disposition.
[2018-08-03 10:27] VITALS: BP 109/72; PULSE 75; RESP 18; TEMP 98.1; O2SAT 100
== END 2018-08-03 10:33 | disposition home or self-care (01) ==
LOC: C.ER 10:19
DX: G89.29 Other chronic pain (principal); Z76.5 Malingerer [conscious simulation]; I10 Essential (primary) hypertension; E78.00 Pure hypercholesterolemia, unspecified; N40.0 Benign prostatic hyperplasia without lower urinary tract symptoms; F03.90 Unspecified dementia, unspecified severity, without behavioral disturbance, psychotic disturbance, mood disturbance, and anxiety